=== PATIENT | female | born 1985 | race Asian ===

== ENCOUNTER 2021-03-09 19:09 | Emergency (ER) | payer OTHER, SELFPAY ==
[2021-03-09 19:24] VITALS: BP 137/66; PULSE 100; RESP 18; TEMP 36.4; O2SAT 100
--- NOTE | 2021-03-09 19:44 | ED.EXTPRO ---
HPI - Extremity Problem General Chief complaint: Extremity Problem,Nontraumatic Stated complaint: lt great toe pain Time Seen by Provider: 03/09/21 19:38 Source: patient and RN notes reviewed Mode of arrival: ambulatory Limitations: no limitations History of Present Illness HPI Narrative: Aminata is a 35-year-old female patient who ambulated into the [facility]. Patient's states she dug out an ingrown toenail on her left great toe a little over a week ago. Patient states today it became red, swollen, and painful. Patient has a history of multiple ingrown toenails. Related Data Home Medications Medication Instructions Recorded Confirmed letrozole 5 mg PO MONTHLY 03/09/21 03/09/21 Allergies Allergy/AdvReac Type Severity Reaction Status Date / Time Penicillins Allergy Intermediate Rash Verified 03/09/21 19:37 prednisone Allergy Mild Dyspnea / Verified 03/09/21 19:43 SOB Review of Systems Review of Systems: CONSTITUTIONAL: Denies body aches, fever, chills, or sweats. EYES: Denies visual changes, redness, or discharge. ENT: Denies rhinorrhea, congestion, sore throat, or otalgia. CARDIOVASCULAR: Denies chest pain, palpitations, or edema. RESPIRATORY: Denies cough or dyspnea. GASTROINTESTINAL: Denies abdominal pain, nausea, vomiting, or diarrhea. GENITOURINARY: Denies dysuria or hematuria. SKIN: Denies rash, itching, + redness, warm left great toe MUSCULOSKELETAL: Denies back pain, joint pain, or myalgia. NEUROLOGIC: Denies headache, numbness, tingling, or weakness. PSYCH: Denies depression or anxiety. All systems reviewed & are unremarkable except as noted in HPI and below PMFSH Comments At time of signature, I have reviewed and agree with nursing past medical, surgical, social and family history unless otherwise noted. Please see nursing chart for further information. There is no relevant family history pertinent to the presenting complaint Exam Narrative: GENERAL: Well-appearing, well-nourished, and in no acute distress. HEAD: Normocephalic, atraumatic. EYES: EOMI. No redness or drainage. Conjunctivae normal. ENT: Mucous membranes pink and moist. Nares clear. No rhinorrhea. NECK: Normal AROM. Supple. MUSCULOSKELETAL: No bony tenderness. EXTREMITIES: Normal range of motion. No edema. left great toe erythematous, edematous and warm to touch, erythema surrounding nail. small open area noted distal great toe. SKIN: Warm, dry, no rash. Capillary refill normal. Normal skin turgor. NEURO: No focal deficits. Alert and oriented x3. Gait steady. PSYCH: Normal affect. No signs of depression or anxiety. Course Vital Signs Vital signs: Vital Signs Temperature 36.4 C 03/09/21 19:24 Pulse Rate 100 03/09/21 19:24 Respiratory Rate 18 03/09/21 19:24 Blood Pressure 137/66 03/09/21 19:24 Pulse Oximetry 100 03/09/21 19:24 Temperature 36.4 C 03/09/21 19:24 Pulse Rate 100 03/09/21 19:24 Respiratory Rate 18 03/09/21 19:24 Blood Pressure 137/66 03/09/21 19:24 Pulse Oximetry 100 03/09/21 19:24 Reviewed reviewed. Pt has been instructed to follow up with her PCP regarding her elevated blood pressure today. MDM - Extremity (Nontraumatic) MDM Narrative Medical decision making narrative: Patient removed an ingrown toenail from her left great toe 1 week ago patient now has associated cellulitis to the left great toe Differential Diagnosis Differential diagnosis: Likely gout, cellulitis (Ingrown toe, cellulitis,) and lower extremity edema Critical Care Time Critical Care Time Critical Care Time: No Discharge Plan Discharge Clinical Impression: Ingrown nail of great toe of left foot Cellulitis Qualifiers: Site of cellulitis: extremity Site of cellulitis of extremity: toe Laterality: left Qualified Code(s): L03.032 - Cellulitis of left toe Patient Disposition: Home, Self-Care Condition: Stable Instructions: Antibiotic Form, Cellulitis (ED), Ingrown Nail (ED)
== END 2021-03-09 19:54 | disposition home or self-care (01) ==
PROVIDERS: Emergency Provider Nurse Practitioner Family; PCP Family Medicine
DX: L60.0 Ingrowing nail (principal); L03.032 Cellulitis of left toe; E28.2 Polycystic ovarian syndrome
CPT/HCPCS: 99213; G0463

== ENCOUNTER 2023-07-22 12:54 | Emergency (ER) | payer OTHER, SELFPAY ==
[2023-07-22 13:05] VITALS: BP 140/90; PULSE 69; RESP 20; TEMP 36.4; O2SAT 100
--- NOTE | 2023-07-22 13:07 | ED.FEMALEGU ---
HPI - Female Genitourinary General Chief complaint: Urogenital-Female Stated complaint: Cough and Urinary Problems Time Seen by Provider: 07/22/23 12:56 Source: patient Mode of arrival: ambulatory Limitations: no limitations History of Present Illness HPI Narrative: Patient is a 38-year-old female that presents with 4 days of urinary incontinence with coughing. Patient states she has frequent coughing fits but they have worsened. Cough started 2 weeks ago. Denies any congestion, sore throat, drainage, fever, chills, nausea, vomiting, diarrhea. Patient has been using Delsym and Mucinex for cough. MD elicited complaint: dysuria Related Data Allergies Allergy/AdvReac Type Severity Reaction Status Date / Time Penicillins Allergy Intermediate Rash Verified 07/22/23 13:41 sulfamethoxazole Allergy Intermediate Swelling Verified 07/22/23 13:41 [From Bactrim] of the Eye trimethoprim [From Bactrim] Allergy Intermediate Swelling Verified 07/22/23 13:41 of the Eye prednisone Allergy Mild Dyspnea / Verified 07/22/23 13:41 SOB Review of Systems Review of Systems: All systems reviewed & are unremarkable except as noted in HPI and below Constitutional: Constitutional: Denies chills, Denies fever(s), Denies headache(s), Denies malaise and Denies weakness Eyes: Eyes: Denies change in vision, Denies eye discharge and Denies irritation ENT: Denies otalgia, Denies headache(s), Denies nasal congestion, Denies nasal discharge, Denies sinus pain and Denies sore throat Cardiovascular: Cardiovascular: Denies chest pain, Denies edema, Denies palpitations and Denies dyspnea Respiratory: Respiratory: Reports cough and Denies dyspnea Gastrointestinal: Gastrointestinal: Denies abdominal pain, Denies diarrhea, Denies nausea and Denies vomiting Genitourinary: Genitourinary: Denies hematuria, Reports nocturia, Denies dysuria, Denies flank pain and Reports urinary urgency Musculoskeletal: Musculoskeletal: Denies back pain and Denies numbness Integumentary/Breasts: Skin/Breast: Denies pruritus and Denies rash Neurologic: Denies headache(s), Denies numbness and Denies weakness Psychiatric: Psychiatric: Reports no additional psychiatric complaints Endocrine: Endocrine: Denies palpitations PMFSH Comments At time of signature, agree with nursing past medical, surgical, social and family history. There is no relevant family history pertinent to the presenting complaint. Exam Const: General: cooperative, healthy appearing, comfortable, no acute distress and well nourished Nutritional Appearance: well nourished Orientation/consciousness: patient oriented x3 HENMT: Head: normocephalic and atraumatic Ears: external ears normal Face/Nose/Sinus: Normal external nose present, Normal nares present and normal facial exam Face and sinus: normal facial exam Eyes: General: appearance normal, both eyes and all related structures Pupils: Equal, round and reactive pupils present EOM: EOMs intact bilaterally Neck: Neck: normal visual inspection, full ROM and supple Chest: Chest palpation & inspection: normal inspection of the chest Resp: Effort & Inspection: normal respiratory effort, able to speak in complete sentences and Actively coughing dry Auscultation: clear to auscultation bilaterally, no crackles, no rales, no rhonchi and no wheezes Cardio: Rate: regular rate Rhythm: regular rhythm GI: Inspection: normal to inspection GI Palp: No abdominal tenderness and Yes Soft to palpation : General: Yes no CVA tenderness Back/Spine/Pelvis: Back: no CVA tenderness Skin: General skin exam: normal color and no rashes or lesions noted Neuro: General: patient oriented x3 and moves all extremities Cranial nerves: Yes Equal, round and reactive pupils present Extrem: General: normal to inspection and full ROM Psych: Appearance: grossly normal and well kempt Course Course Emergency Course: Patient is aware of diagnosis, understands and
== END 2023-07-22 13:54 | disposition home or self-care (01) ==
PROVIDERS: Emergency Provider Nurse Practitioner Family
DX: N30.00 Acute cystitis without hematuria (principal); J20.9 Acute bronchitis, unspecified
CPT/HCPCS: 81003; 87086; 99213; G0463

== ENCOUNTER 2024-01-16 11:30 | Emergency (ER) | payer OTHER, SELFPAY ==
--- NOTE | ~2024-01-16 | CT_ITS ---
EXAMINATION: CT abdomen pelvis w con DATE: 01/16/2024 13:15 INDICATION: Upper abdominal pain. TECHNIQUE: Computed tomography (CT) of the abdomen and pelvis was performed with 100 mL Omnipaque 350 intravenous contrast. Automated exposure control and iterative reconstruction technique were employe d. The dose-length product was 1383.81 mGy-cm. COMPARISON: None. FINDINGS: The visualized portions of the lung bases are clear without pneumonia or pleural effusion. The heart size is normal. No pericardial effusion. The liver, gallbladder, spleen, pancreas, adrenal glands, and kidneys are normal. There is a 3.8 cm mass of fat in left ovary, consistent with a dermoi d. There are no dilated loops of bowel. The appendix is normal. There are no pathologically enlarged lymph nodes. There is no free intraperitoneal fluid. There is mild thoracic and lumbar spondylosis. IMPRESSION: 1. 3.8 cm dermoid in left ovary. Reviewed, dictated and finalized at location A.
[2024-01-16 11:31] VITALS: BP 144/104; PULSE 91; RESP 16; TEMP 36.4; O2SAT 100
[2024-01-16 11:49] LABS: Basophils Percent Auto 0.4 % (0.2-1.2); Eosinophils Absolute Auto 0.2 K/mm3 (0-0.3); Eosinophils Percent Auto 2.2 % (0-4.4); Hemoglobin 13.6 g/dL (12.0-15.0); Immature Granulocyte Absolute 0.04 K/mm3 (0.00-0.031); Immature Granulocyte Percent A 0.5 % (0-0.5); Lymphocytes Absolute Auto 1.55 K/mm3 (0.9-3.2); Lymphocytes Percent Auto 18.7 % (18.3-44.2); Mean Corpuscular HGB Conc 31.6 g/dl (32-36); Mean Corpuscular Hemoglobin 24.9 pg (26-34); Mean Corpuscular Volume 78.8 fl (80-100); Mean Platelet Volume 11.7 fl (7.4-10.4); Monocytes Absolute Auto 0.8 K/mm3 (0.1-0.6); Monocytes Percent Auto 9.3 % (2.6-8.5); Neutrophils Absolute Auto 5.7 K/mm3 (1.3-6.7); Neutrophils Percent Auto 68.9 % (45.5-73.1); Platelet Count Result 260 k/mm3 (150-375); Red Blood Count 5.46 M/mm3 (4.2-5.4); Red Cell Distribution Width 13.6 % (11.5-14.5); White Blood Count 8.3 K/mm3 (4.5-10.0)
[2024-01-16 12:05] LABS: Alanine Aminotransferase 93 U/L (6-35); Albumin Level 4.5 g/dL (3.5-5.1); Alkaline Phosphatase 89 U/L (38-126); Anion Gap 11 mmol/L (4-12); Aspartate Amino Transferase 63 U/L (14-36); Bilirubin,Total 0.6 mg/dL (0.2-1.3); Blood Urea Nitrogen 7 mg/dL (7-17); Calcium 9.2 mg/dL (8.4-10.2); Carbon Dioxide 22 mmol/L (22-30); Chloride 100 mmol/L (98-107); Estimated CRCL calculation 161 ml/min; Estimated Glomerular Filt Rate > 60; Glucose 114 mg/dL (65-110); Lipase 35 U/L (23-300); Potassium 3.9 mmol/L (3.4-5.0); Sodium 133 mmol/L (137-145)
[2024-01-16 12:13] VITALS: BP 124/67; PULSE 82; RESP 14; TEMP 36.6; O2SAT 99
[2024-01-16 12:15] LABS: BEDSIDEPREGUCG Negative (Negative)
[2024-01-16 12:45] LABS: Add Urine Microscopic? YES; Appearance Urine Cloudy (Clear); Bacteria Urine None Seen /hpf; Bilirubin Urine Negative (Negative); Blood Urine Negative (Negative); Color Urine Yellow (Yellow); Glucose Urine UA Negative (Negative); Ketones Urine Negative (Negative); Leukocyte Esterase Ur 2+ LEU/UL (Negative); Need Manual Microscopic Reviewed; Nitrate Urine Negative (Negative); Non Pathogenic Casts 0-2; Protein Urine Negative (Negative); RBC Urine 0-2 /hpf (0-2); Specific Grav Ur 1.006 (1.001-1.035); Squamous Epithelial Cell Urine Few /hpf (Few); Urobilinogen Urine 0.2 mg/dL (<2.0)
[2024-01-16] MEDS: ONDANSETRON INJ 4 MG/2 ML VIAL IV PUSH (13:21)
[2024-01-16] MEDS: MORPHINE SULFATE (*CRX) 4 MG/ML INJ IV PUSH (13:21)
[2024-01-16] MEDS: SODIUM CHLORIDE 0.9% IV 1,000 ML 999 ML IV CONT (13:22)
[2024-01-16 13:25] VITALS: BP 121/72; PULSE 89; RESP 15; O2SAT 99
--- NOTE | 2024-01-16 13:38 | ED.GENADULT ---
HPI - General Adult General Chief complaint: Nausea/Vomiting/Diarrhea Stated complaint: DIARRHEA Time Seen by Provider: 01/16/24 12:15 History of Present Illness HPI narrative: Patient is a 38-year-old female who presents to the emergency department this afternoon complaining of left upper quadrant and right upper quadrant abdominal pain and diarrhea for the past 4 days. Patient admits nausea and 1 vomiting episode. Denies any chest pain or shortness of breath and denies any sick contacts at home. Denies any similar symptoms in the past. Patient states that the pain woke her up from sleep. Pain does not radiate. Denies any lower abdominal pain and denies any urinary symptoms including dysuria or hematuria. No additional symptoms or concerns at this time. Related Data Allergies Allergy/AdvReac Type Severity Reaction Status Date / Time Penicillins Allergy Intermediate Rash Verified 07/22/23 13:41 sulfamethoxazole Allergy Intermediate Swelling Verified 07/22/23 13:41 [From Bactrim] of the Eye trimethoprim [From Bactrim] Allergy Intermediate Swelling Verified 07/22/23 13:41 of the Eye prednisone Allergy Mild Dyspnea / Verified 07/22/23 13:41 SOB Review of Systems Review of Systems: All systems are reviewed and are negative unless stated otherwise in the HPI. Exam Narrative: General: Alert, awake, afebrile, in no acute distress. HEENT: PERRL, no rhinorrhea, no post nasal drip, oropharynx clear. Cardiovascular: Regular rate and rhythm, no murmurs, rubs or gallops, no peripheral edema. Respiratory: Clear to auscultation bilaterally, no tachypnea, no wheezing, no rhonchi, no rubs, no respiratory distress. Abdomen: Soft, tenderness to palpation over the bilateral upper abdomen, nondistended, no rebound, no guarding, no peritoneal signs. Musculoskeletal: No joint swelling or deformity, normal muscle tone. Skin: No rashes or petechia, no signs of infection. Neurological: Alert and oriented to person, place, and time. Follows all commands. No focal deficits, speech is clear and fluent. Course Vital Signs Vital signs: Vital Signs Temperature 97.6 F 01/16/24 11:31 Pulse Rate 91 01/16/24 11:31 Respiratory Rate 16 01/16/24 11:31 Blood Pressure 144/104 H 01/16/24 11:31 Pulse Oximetry 100 01/16/24 11:31 Temperature 97.8 F 01/16/24 12:13 Pulse Rate 89 01/16/24 13:25 Respiratory Rate 15 01/16/24 13:25 Blood Pressure 121/72 01/16/24 13:25 Pulse Oximetry 99 01/16/24 13:25 Medical Decision Making MDM Narrative Medical decision making narrative: The patient was evaluated by myself in the emergency department. History is obtained from patient who is an independent historian and physical exam was performed. External medical records were reviewed at this time. IV was established and pertinent tests were ordered. Patient was administered along L IV fluid bolus with normal saline, 4 mg IV Zofran for nausea and 4 mg IV morphine for pain. Laboratory results obtained revealing an AST of 63 and an ALT of 93 otherwise unremarkable. Urinalysis revealed 2+ leuk esterases with 11-20 white blood cells. Imaging studies obtained included CT abdomen pelvis with IV contrast which was independently interpreted by me revealing no acute process, which is pending final radiology interpretation. Differential diagnosis considerations include gastroenteritis, peptic ulcer disease, cholecystitis, dehydration, electrolyte derangements and pancreatitis. Comorbidities impacting this visit include none. I have evaluated and discussed social determinants of health with the patient that could potentially impact subsequent diagnosis and treatment plans. On repeat assessment of the patient, reevaluation revealed that the patient is doing well and is in no acute distress. Patient symptoms have improved since she arrived to our emergency department. Repeat vital signs were all reviewed and noted to be
[2024-01-16 14:02] VITALS: BP 124/80; PULSE 78; RESP 16; TEMP 36.7; O2SAT 99
[2024-01-16] MEDS: PANTOPRAZOLE SODIUM IV 40 MG VIAL IV PUSH (14:02)
--- NOTE | 2024-01-31 11:17 | PC.NURSE ---
Fluid stop time 1423 on 01/16/24 by this RN. Patient IV intake 1000 mL
== END 2024-01-16 14:04 | disposition home or self-care (01) ==
PROVIDERS: Emergency Medicine; Emergency Provider Emergency Medicine
DX: K52.9 Noninfective gastroenteritis and colitis, unspecified (principal); N39.0 Urinary tract infection, site not specified
CPT/HCPCS: 36415; 74177; 80053; 81001; 81025; 83690; 85025; 87086; 87088; 96361; 96374; 96375; 99284; J2270; J2405; J2470; J7030; Q9967

== ENCOUNTER 2024-09-10 20:16 | Emergency (ER) | payer OTHER, SELFPAY ==
--- NOTE | ~2024-09-10 | XR_ITS ---
CHEST RADIOGRAPH, PA AND LATERAL CLINICAL HISTORY: CHEST PAIN, DIZZINESS . COMPARISON: 02/11/2018 TECHNIQUE: PA and lateral views of the chest. FINDINGS The cardiomediastinal silhouette is unremarkable. The lungs are clear. Visualized osseous structures and soft tissues are unremarkable. IMPRESSION: No focal infiltrate or effusion. Reviewed, dictated and finalized at location A.
--- NOTE | 2024-09-10 20:17 | ECG_ITS ---
Test Date: 2024-09-10 20:20:11 Measurements Intervals [place] Rate: 74 P: 11 DE: 155 QRS: 8 QRSD: 127 T: 15 QT: 377 QTc: 419 Interpretive Statements SINUS RHYTHM RSR' IN V1 OR V2, PROBABLY NORMAL VARIANT No previous ECG available for comparison Electronically Signed On 09-11-2024 10:43:49 CDT by Catarino Palacio M.D.
--- OUTSIDE RECORDS SUMMARY | 2024-09-10 20:18 | XMS_ITS | Clinical Summary ---
Author Organization [facility] Address [address] [place] [address] Care Team Providers Care Train Gateman Name Role Phone Gaye Us MICHELLE-MECHANIC FOREMAN Primary Care Provider [phone] Source Comments [facility],non-owned Affiliates and Associated Physician Practices is amultiple site organization consisting of ambulatory clinics and hospital sitesin [place], [place], [place] and [place]. This disclosure is being madepursuant to the Care Everywhere program and may not contain all information available regarding this patient. Last updated 18.[facility] [employer] Allergies Active Allergy Reactions Criticality Noted Date Comments Penicillins Swelling,Urticaria Medium 10/04/2023 Prednisone Rash,Urticaria Medium 10/04/2023 Sulfamethoxazole W-Trimethoprim Swelling,Urticaria Medium 10/04/2023 Medications * Be aware that medications may not be up to date on this document. Alwaysverify current medications with the patient. Cholecalciferol 125 MCG (5000 UT) Ac tive Active Problems No known active problems Social History Tobacco Use Types Packs/Day Years Used Date Smoking Tobacco: Never Assessed Comments Unknown Sex and Gender Information Value Date Recorded Sex Assigned at Not on file Legal Sex Female 2:19 PM CDT Gender Identity Not on file Sexual Orientation Not on file Plan of Treatment Health Maintenance Due Date Last Done Comments PAP SMEAR 1987 HIV SCREENING 2002 DTAP/TDAP/TD VACCINES (1 - Tdap) 2006 HEPATITIS B VACCINE (1 of 3 - 19+ 3-dose series) 2006 COVID-19 VACCINE (2023-2 5 season) 2023 DEPRESSION SCREENING 04/26/2024 INFLUENZA VACCINE (Season Ended) 2024 ZOSTER VACCINE (1 of 2) 2037 HEPATITIS C SCREENING Completed 10/29/2023 , 10/29/2023 HIB VACCINE Aged Out No longer eligi ble based on patient's age to complete this topic HPV VACCINE Aged Out No longer eligi ble based on patient's age to complete this topic MENINGOCOCCAL (Group B) VACCINE SHARED DECISION-MAKING Aged Out No longer eligible based on patient's age to complete this topic MENINGOCOCCAL GROUPS A/C/Y/W VACCINE Aged Out No longer eligible b ased on patient's age to complete this topic PNEUMOCOCCAL VACCINE Aged Out No long er eligible based on patient's age to complete this topic Care Teams Train Gateman Relationship Specialty Start Date End Date Gaye Us APRN-LULÚ [address] [place] [phone] PCP - General Nurse Practitioner 12/14/23
--- OUTSIDE RECORDS SUMMARY | 2024-09-10 20:18 | XMS_ITS | Referral Summary ---
Author Organization [facility] C Address [address] [place] [address] Care Team Providers Care Residential Program Coordinator Name Role Phone Gaye Us NP Primary Care Provider [phone] Encounters Date Type Department Care Team Description 08/31/2024 2:30 PM CDT Office Visit [facility] Primary Care at [address] [phone] Gaye Us NP Paresthesia and pain of both upper extremities (Primary Dx); Chronic pain of both shoulders; Chronic fatigue; HOLDEN on CPAP; Morbid obesity with BMI of 45.0-49.9, adult (HCC); Prediabetes; Vitamin D deficiency; Low mean corpuscular volume (MCV); Screening, lipid 07/24/2024 Telephone [facility] Primary Care at [address] [phone] Gaye Us NP 07/12/2024 Telephone [facility] Primary Care at [address] [phone] Gaye Us NP 07/12/2024 8:45 AM CDT Office Visit [facility] Primary Care at [address] [phone] Gaye Us NP Acute bronchitis, unspecified organism (Primary Dx); Acute non-recurrent sinusitis, unspecified location; Morbid obesity with BMI of 45.0-49.9, adult (HCC); Prediabetes; Vitamin D deficiency; Low mean corpuscular volume (MCV); Screening for thyroid disorder; Screening, anemia, deficiency, iron; Screening, lipid 07/11/2024 Nurse Triage [facility] Primary Care at [place] [id number] [facility] [address] [place] [address] Gaye Us NP from Last 3 Months Allergies Active Allergy Reactions Criticality Noted Date Comments Sulfamethoxazole-Trimethoprim Hives,Edema Medium 10/03 Penicillins Hives,Edema Medium 10/04/2023 Prednisone Hives,Edema Medium 10/04/2023 Medications cholecalciferol (VITAMIN D-3) 5,000 unit tabletIndications :Well woman exam with routine gynecological exam Take 1 tablet (5,000 Units total) by mouth daily Active pantoprazole DR (PROTONIX) 40 mg EC tabletIndications :Postprandial epigastric pain Take 1 tablet (40 mg total) by mouth daily 30 tablet Active Additional Information Patient not taking.Reported on 08/31/2024 gabapentin (NEURONTIN) 300 mg capsuleIndication s:Paresthesia and pain of both upper extremities Take one capsule daily for 3 days, then increase to one capsule BID for 3 days, then increase to one capsule TID for 3 days 90 capsule Active Active Problems Problem Noted Date Diagnosed Date Paresthesia and pain of both upper extremities 0 09/03/2024 Assessment & Plan (09/03/2024 11:14 AM CDT): Uncontrolled Started on gabapentin Ordered EMG and nerve conduction studies of bilateral upper extremities HOLDEN on CPAP 08/31/2024 Assessment & Plan (09/03/2024 11:10 AM CDT): Uncontrolled, snores and has worsening fatigue Referral made to sleep medicine Fatigue 08/31/2024 Assessment & Plan (08/31/2024 3:06 PM CDT): Worsening, likely multifactorial, has HOLDEN, is snoring with CPAP, also under a lot of stress Referral made to sleep medicine Labs ordered Low mean corpuscular volume (MCV) 07/12/2024 Assessment & Plan (09/03/2024 11:09 AM CDT): Normal hemoglobin and hematocrit, normal iron Will monitor Assessment & Plan (07/12/2024 9:22 AM CDT): Normal hemoglobin and hematocrit, normal iron Will monitor Postprandial epigastric pain 02/18/2024 Assessment & Plan (02/18/2024 9:43 AM CDT): Acute, episodic, related to meals Started on pantoprazole 40 mg 1/2 hour before 1st meal of the day Encouraged to avoid foods that precipitate symptoms Ordered right upper quadrant ultrasound Prediabetes 11/04/2023 Assessment & Plan (09/03/2024 10:57 AM CDT): Uncontrolled, stability unknown Advised to decrease intake of concentrated sweets and to limit starchy vegetables and white potato to no more than 1/2 cup serving per day Encouraged weight loss Assessment & Plan (07/12/2024 9:19 AM CDT): Uncontrolled Advised to decrease intake of concentrated sweets and to limit starchy vegetables and white potato to no more than 1/2 cup serving per day Encouraged weight loss Assessment & Plan (11/04/2023 1:22 PM CDT): New diagnosis Advised to decrease intake of concentrated sweets and to limit starchy vegetables and white potato to no more than 1/2 cup serving per day Encouraged weight loss Vitamin D deficiency 11/04/2023 Assessment & Plan (09/03/2024 10:58 AM CDT): Uncontrolled, now on supplement Continue on vitamin D3 2000 international units daily with a meal Assessment & Plan (07/12/2024 9:19 AM CDT): Uncontrolled, now on supplement Continue on vitamin D3 2000 international units daily with a meal Assessment & Plan (11/04/2023 1:20 PM CDT): New diagnosis Started on vitamin D3 2000 international units daily with a meal Annual physical exam 11/04/2023 Assessment & Plan (11/04/2023 1:24 PM CDT): Reviewed past and current medical history, surgical history, social history, family history, current medications, and allergies. The chart was updated to identify any changes in these areas. A ROS and PE were performed. Medications and labs were ordered and referrals were made. Discussed well woman exam/cervical cancer screening, monthly breast self-exams, and recommended immunizations. Patient will follow-up in 6 months for further evaluation and management or sooner if needed. Chronic pain of both shoulders 11/04/2023 Assessment & Plan (09/03/2024 11:09 AM CDT): Worsening Advised can use OTC oral and topical medication Discussed x-rays and referral to orthopedic surgeon, through shared decision- making, will defer until after EMG/nerve conduction studies Assessment & Plan (11/04/2023 1:41 PM CDT): Chronic, stable, episodic Advised can continue PRN ibuprofen and apply ice when needed Irritable bowel syndrome with diarrhea Assessment & Plan (02/18/2024 9:44 AM CDT): Chronic, stable Monitor for offending foods and relationship to stress Will monitor for stability Assessment & Plan (11/04/2023 1:42 PM CDT): Chronic, stable Monitor for offending foods and relationship to stress Will monitor for stability Acne vulgaris 10/06/2023 Assessment & Plan (07/12/2024 9:19 AM CDT): Chronic, stable, not on medication Referred to dermatology last visit, has appointment at [facility] in November Will monitor for stability Assessment & Plan (11/04/2023 1:25 PM CDT): Chronic, stable, not on medication Referred to dermatology last visit, has appointment at [facility] in November Will monitor for stability Assessment & Plan (10/06/2023 9:46 AM CDT): Chronic, improved per patient report, not on medication Referral made to Dermatology Will monitor for stability Skin tag 10/06/2023 Assessment & Plan (11/04/2023 1:20 PM CDT): Referral made to dermatology at initial/last visit Assessment & Plan (10/06/2023 9:45 AM CDT): Referral made to dermatology for further evaluation and management Morbid obesity with BMI of 45.0-49.9, adult 09/24 Assessment & Plan (08/31/2024 2:46 PM CDT): Worsened Encouraged to: Make healthy food choices, limiting intake of concentrated sweets, cholesterol, and saturated fat Monitor daily caloric intake and portion sizes Exercise most days of the week for a goal of at least 150 minutes of exercise per week Assessment & Plan (07/12/2024 9:17 AM CDT): Worsened Encouraged to: Make healthy food choices, limiting intake of concentrated sweets, cholesterol, and saturated fat Monitor daily caloric intake and portion sizes Exercise most days of the week for a goal of at least 150 minutes of exercise per week Assessment & Plan (02/18/2024 9:43 AM CDT): Chronic, stable Encouraged to: Make healthy food choices, limiting intake of concentrated sweets, cholesterol, and saturated fat Monitor daily caloric intake and portion sizes Exercise most days of the week for a goal of at least 150 minutes of exercise per week Assessment & Plan (11/04/2023 1:23 PM CDT): Chronic, stability unknown Encouraged to: Make healthy food choices, limiting intake of concentrated sweets, cholesterol, and saturated fat Monitor daily caloric intake and portion sizes Exercise most days of the week for a goal of at least 150 minutes of exercise per week Assessment & Plan (10/06/2023 9:46 AM CDT): Chronic, stability unknown Encouraged to: Make healthy food choices, limiting intake of concentrated sweets, cholesterol, and saturated fat Monitor daily caloric intake and portion sizes Exercise most days of the week for a goal of at least 150 minutes of exercise per week Abnormal menses 10/06/2023 Assessment & Plan (11/04/2023 1:26 PM CDT): Chronic, stable Referred last visit to gynecology, has appointment at [facility] in November Assessment & Plan (10/06/2023 9:46 AM CDT): Chronic, stable Referral made to gynecology for further evaluation and management Resolved Problems Problem Noted Date Diagnosed Date Resolved Date Acute bronchitis 07/12/2024 08/31/2024 Assessment & Plan (07/12/2024 9:17 AM CDT): Started on a Zpak Supportive care measures discussed Strict return precautions given Acute non-recurrent sinusitis 07/12/2024 08/31/2024 Assessment & Plan (07/12/2024 9:17 AM CDT): Started on a Zpak Supportive care measures discussed Strict return precautions given Abnormal hemoglobin 07/12/2024 09/04/19 25 Encounter to establish care 10/06/2023 11/04/2023 Assessment & Plan (10/06/2023 9:47 AM CDT): Reviewed past and current medical history, surgical history, social history, family history, current medications, and allergies. The chart was updated to identify any changes in these areas. A ROS and PE were performed. Labs were ordered and referrals were made. Patient will follow-up in 4 weeks for further evaluation and management or sooner if needed. Immunizations Immunization Administration Dates Next Due Influenza, Unspecified 01/25/2024(Deferr ed: Patient Refused),01/24/2023(Deferred: Patient Refused),01/24/2023(Deferred: Patient Refused),01/24/2022(Deferred: Patient Refused) Social History Tobacco Use Types Packs/Day Years Used Date Smoking Tobacco: Former Cigarettes - 2006 Smokeless Tobacco: Never Tobacco Cessation:Counseling Given: Not Answered Comments:1/2 pack daily. AUDIT-C Answer Date Recorded Q1: How often do you have a drink containing alc ohol? Monthly or less 10/04/2023 Q2: How many drinks containi ng alcohol do you have on a typical day when you are drinking? 1 or 2 10/04/2023 Q3: How often do you have si x or more drinks on one occasion? Never 10/04/2023 PHQ-2 Answer Date Recorded PHQ-2 Total Score (If total score is 3 or more points, staff should administer the PHQ-9) 3 11/04/2023 PHQ-9 Answer Date Recorded PHQ-9 Total Score 13 11/04/2023 Comments No Sex and Gender Information Value Date Recorded Sex Assigned at Not on file Legal Sex Female 12:02 PM CDT Gender Identity Not on file Sexual Orientation Not on file Last Filed Vital Signs Vital Sign Reading Time Taken Comments Blood Pressure 142/82 08/31/2024 3:04 PM CDT Pulse 81 08/31/2024 2:32 PM CDT Temperature 36.4 C (97.6 F) 08/31/2024 2:32 PM CDT Respiratory Rate 14 08/31/2024 2:32 PM CDT Oxygen Saturation 98% 08/31/2024 2:32 PM CDT Inhaled Oxygen Concentration - - Weight 122.7 kg (270 lb 8 oz) 08/31/2024 2:32 PM CDT Height 157 cm (5' 1.81 ) 08/31/2024 2:32 PM CDT Body Mass Index 49.78 08/31/2024 2:32 PM CDT Plan of Treatment Not on file Procedures Procedure Name Priority Date/Time Associated Diagnosis Comments POC INFLUENZA A/B, COVID-19 ANTIGEN Routine 07/12/2024 9:00 AM CDT Acute bronchitis, unspecified organism HIGH RISK HPV DNA DETECTION WITH GENOTYPING Routine 12/06/2023 1:34 PM CDT Abnormal menses Well woman exam with routine gynecological exam Vaginal discharge HEPATITIS C ANTIBODY Routine 10/29/2023 11:28 AM CDT Encounter for hepatitis C screening test for low risk patient from Last 3 Months or Most Recently Relevant to Health Maintenance Results * POC Influenza A/B, COVID-19 antigen (07/12/2024 9:00 AM CDT) Pathologist [facility] Influenza A Ag, POC Negative Negative [facility] [address] Influenza B Ag, POC Negative Negative [facility] 210 COVID-19 Ag POC Presumptive Negative Presumptive Negative, Invalid [facility] [address] Comment:Lot [id number] Exp [id number] Nasal 07/12/2024 9:00 AM CDT us Gaye Us NP POINT OF CARE TEST ORDERABLES nal Result [facility] [address] * High Risk HPV DNA Detection with Genotyping (Molecular component) (12/06/2023 1:34 PM CDT) [facility] HPV HR [address] [facility] Comment:Testing performed by : [facility], [address] [place] [address] HPV HR 18 Not Detected Not Detected [facility] Comment:Testing performed by : [facility], [address] [place]., [address] HPV HR Non 16/18 Not Detected Not Detected [facility] Comment: Interpretive Data Nucleic acid amplification for detection of high-risk Human Papilloma virus (HPV) is performed by the K[employer] Jose 6800 HPV test. This assay specifically detects HPV-16 and HPV-18 genotypes. The following HPV genotypes are detected as high-risk HPV: HPV-31, 33, 35, ,39, 45, 51, 52, 56, 58, 59, 66, and 68. This assay has been approved by the [place] Food and Drug Administration for detection of HPV in cervical specimens collected by a physician using an endocervical brush/spatula or cervical broom and placed in the ThinPrep Pap Test PreservCyt collection containers. The performance characteristics of this test have been verified by the [facility] Molecular Infectious Disease laboratory. Correlate with separately reported cytology results, as applicable. Interpretive data last revised 22 Testing performed by: [facility], [address] [place]., [address] Endocervical 12/06/2023 1:34 PM CDT 12/07/2023 11:16 AM CDT Narrative [facility] - 12/08/2023 1:17 AM CDT Clinical history and diagnosis->2019 wnl per pt ([place]) Number of vials->1 Testing type->Screening Last menstrual period (date if known)->11/22/23 Rianna Angulo SHOE REPAIRMAN LAB BODY FLUIDS AND STOOLS O RDERABLES Final Result [place] [address] [place] [address] [facility] * Hepatitis C antibody Blood (10/29/2023 11:28 AM CDT) Hep C Ab Nonreactive Nonreactive Comment: Antibodies to HCV not detected. Does NOT exclude the possibility of recent exposure to HCV. Current interpretive data was last revised on 21 Interpretive Data Nonreactive: Antibodies to HCV not detected. Does NOT exclude the possibility of recent exposure to HCV. Equivocal: Equivocal for HCV antibodies. Supplemental molecular testing will be automatically performed to determine infection status in accordance with current CDC screening recommendations. Reactive: Positive for HCV antibodies. This may represent current or past HCV infection. Supplemental molecular testing will be automatically performed to determine current infection status in accordance with current CDC screening recommendations. Interpretive data was last revised on 2019. Blood 10/29/2023 11:2 8 AM CDT 10/29/2023 4:33 PM CDT Gaye Us NP LAB MICROBIOLOGY - GENERAL ORDER ROSA ISELA Edited Result - Final Performing Organization Address City/[facility]/ZIP Co de Phone Number [address] [place] [place] [address] from Last 3 Months or Most Recently Relevant to Health Maintenance Insurance [facility] Care Teams Residential Program Coordinator Relationship Specialty Start Date End Date Gaye Us NP [address] [place] [address] [phone] PCP - General Family Medicine 10/04/23
--- OUTSIDE RECORDS SUMMARY | 2024-09-10 20:18 | XMS_ITS | Clinical Summary ---
Author Organization [facility] C Address [address] [place] [address] Care Team Providers Care Duplicating Machine Operator Name Role Phone Gaye Us NP Primary Care Provider [phone] Allergies Active Allergy Reactions Criticality Noted Date [...] mg total) by mouth daily 30 tablet 4 Active Additional Information Patient not taking.Reported on [...] to dermatology last visit, has appointment at [facility] in November Will monitor for stability Assessment & Plan (11/04/2023 1:25 PM CDT): Chronic, stable, not on medication Referred to dermatology last visit, has appointment at [facility] in November Will monitor for stability Assessment [...] last visit to gynecology, has appointment at [facility] Obstetrics and Gynecology in November Assessment & [...] evaluation and management or sooner if needed. Encounters Date Type Department Care Team Description 08/31/2024 2:30 PM CDT Office Visit [facility] Primary Care at [address] [phone] Gaye Us NP Paresthesia and pain of both upper extremities (Primary Dx); Chronic pain of both shoulders; Chronic fatigue; HOLDEN on CPAP; Morbid obesity with BMI of 45.0-49.9, adult (HCC); Prediabetes; Vitamin D deficiency; Low mean corpuscular volume (MCV); Screening, lipid 07/24/2024 Telephone [facility] Primary Care at [address] [phone] Gaye Us NP 07/12/2024 8:45 AM CDT Office Visit [facility] Primary Care at [address] [phone] Gaye Us NP Acute bronchitis, unspecified organism (Primary Dx); Acute non-recurrent sinusitis, unspecified location; Morbid obesity with BMI of 45.0-49.9, adult (HCC); Prediabetes; Vitamin D deficiency; Low mean corpuscular volume (MCV); Screening for thyroid disorder; Screening, anemia, deficiency, iron; Screening, lipid 07/12/2024 Telephone [facility] Primary Care at [address] [phone] Gaye Us NP 07/11/2024 Nurse Triage [facility] Primary Care at [address] [phone] Gaye Us NP from Last 3 Months Immunizations Immunization Administration Dates Next Due Influenza, Unspecified 01/25/2024(Deferr ed: Patient Refused),01/24/2023(Deferred: Patient Refused),01/24/2023(Deferred: Patient Refused),01/24/2022(Deferred: Patient Refused) Surgical History Surgery Date Site/Laterality Comments WISDOM TOOTH EXTRACTION Family History Medical History Relation Name Comments Breast cancer Neg Hx Social History Tobacco Use Types Packs/Day Years Used Date Smoking Tobacco: Former Cigarettes 2 - 2006 Smokeless Tobacco: Never Tobacco Cessation:Counseling [...] on file Sexual Orientation Not on file Obstetrics History Para Term AB IAB SAB Ectopic Multiple Livin g Live Births 0 0 0 0 0 0 0 0 0 0 0 Last Filed Vital Signs Vital Sign Reading [...] 08/31/2024 2:32 PM CDT Plan of Treatment Health Maintenance Due Date Last Done Comments Meningococcal B Vaccine (1 of 5 - Increased Risk) 1997 DTaP/Tdap/Td Vaccine (1 - Tdap) 1998 Pneumococcal vaccine <65 (1 of 2 - PCV) 2006 Covid-19 Vaccine (3 - season) 2023 08/27/2020, 07/30/2020 Depression Screening 11/03/2024 11/04/2023, 11/04/2023, 10/04/2023, Additional history exists Cervical Cancer Screening 12/05/2024 12/06/2023, 03/2024 Regular Well Visit/Exam 18-64 12/05/2024 12/06/2023, 11/04/2023 Influenza Vaccine (Season Ended) 2024 Hepatitis B Screening Completed 10/29/2023 Hepatitis C Screening Completed 10/29/2023 HPV Vaccines Aged Out No longer eligi ble based on patient's age to complete this topic Varicella Vaccines Discontinued Procedures Procedure Name Priority Date/Time Associated Diagnosis [...] A/B, COVID-19 antigen (07/12/2024 9:00 AM CDT) Influenza A Ag, POC Negative Negative [facility] 210 Influenza B Ag, POC Negative Negative [facility] 210 COVID-19 Ag POC Presumptive Negative Presumptive Negative, Invalid [facility] 210 Comment:Lot [id number] Exp [id number] 26 Nasal 07/12/2024 9:00 AM CDT us Gaye Us NP POINT OF CARE TEST ORDERABLES Fi nal Result [facility] [address] * High Risk HPV DNA Detection with Genotyping (Molecular component) (12/06/2023 1:34 PM CDT) HPV HR [address] [facility] Comment:Testing performed by : [facility], [address] [place]., [address] HPV HR 18 Not Detected Not Detected [facility] Comment:Testing performed by : [facility], [address] [place]., [address] HPV HR Non 16/18 Not Detected Not Detected [facility] Comment: Interpretive Data Nucleic acid amplification for [...] this test have been verified by the [facility] Molecular Infectious Disease laboratory. Correlate with separately reported cytology results, as applicable. Interpretive data last revised 22 Testing performed by: [facility], [address] [place]., [address] Endocervical 12/06/2023 1:34 PM CDT 12/07/2023 11:16 AM CDT Narrative [facility] - 12/08/2023 1:17 AM CDT Clinical history and diagnosis->2019 wnl per pt ([place]) Number of vials->1 Testing type->Screening Last menstrual period (date if known)->11/22/23 Rianna Angulo NP LAB BODY FLUIDS AND STOOLS O RDERABLES Final Result [facility] [address] [facility] Department [place] [address] [facility] * Hepatitis C antibody Blood (10/29/2023 11:28 [...] 8 AM CDT 10/29/2023 4:33 PM CDT us Gaye Us NP LAB MICROBIOLOGY - GENERAL ORDER ROSA ISELA Edited Result - Final [facility] [address] [facility] Department [place] [address] from Last 3 Months or Most Recently Relevant to Health Maintenance [facility] Care Teams Duplicating Machine Operator Relationship Specialty Start Date End Date Gaye Us OPTICAL FABRICATOR [address] [place] [id number] PCP - General Family Medicine 10/04/23
[2024-09-10 20:19] VITALS: BP 148/83; PULSE 81; RESP 16; TEMP 36.8; O2SAT 100
[2024-09-10 20:35] LABS: Basophils Absolute Auto 0.1 K/mm3 (0.0-0.1); Basophils Percent Auto 0.7 % (0.2-1.2); Eosinophils Absolute Auto 0.2 K/mm3 (0-0.3); Eosinophils Percent Auto 1.7 % (0-4.4); Hematocrit 41.8 % (37.0-47.0); Hemoglobin 13.3 g/dL (12.0-15.0); Immature Granulocyte Absolute 0.05 K/mm3 (0.00-0.031); Immature Granulocyte Percent A 0.5 % (0-0.5); Lymphocytes Absolute Auto 3.31 K/mm3 (0.9-3.2); Lymphocytes Percent Auto 33.6 % (18.3-44.2); Mean Corpuscular HGB Conc 31.8 g/dl (32-36); Mean Corpuscular Volume 78.7 fl (80-100); Mean Platelet Volume 11.1 fl (7.4-10.4); Monocytes Absolute Auto 0.6 K/mm3 (0.1-0.6); Monocytes Percent Auto 6.2 % (2.6-8.5); Neutrophils Absolute Auto 5.6 K/mm3 (1.3-6.7); Neutrophils Percent Auto 57.3 % (45.5-73.1); Platelet Count Result 238 k/mm3 (150-375); Red Blood Count 5.31 M/mm3 (4.2-5.4); Red Cell Distribution Width 13.5 % (11.5-14.5); White Blood Count 9.8 K/mm3 (4.5-10.0)
[2024-09-10 20:45] LABS: Alanine Aminotransferase 79 U/L (6-35); Albumin Level 4.3 g/dL (3.5-5.1); Alkaline Phosphatase 86 U/L (38-126); Anion Gap 8 mmol/L (4-12); Aspartate Amino Transferase 64 U/L (14-36); Bilirubin,Total 0.5 mg/dL (0.2-1.3); Blood Urea Nitrogen 8 mg/dL (7-17); Calcium 9.8 mg/dL (8.4-10.2); Carbon Dioxide 23 mmol/L (22-30); Chloride 107 mmol/L (98-107); Estimated CRCL calculation 145 ml/min; Estimated Glomerular Filt Rate > 60; Glucose 98 mg/dL (65-110); Lipase 60 U/L (23-300); Potassium 3.9 mmol/L (3.4-5.0); Sodium 138 mmol/L (137-145)
[2024-09-10 20:47] LABS: INR 0.9; Partial Thromboplastin Time 30.2 Seconds (22.3-36.8); Prothrombin Time 12.7 Seconds (11.1-14.7)
[2024-09-10 20:57] LABS: Troponin I < 0.012 ng/mL (0.000-0.034)
--- NOTE | 2024-09-10 23:36 | ED.CHESTPAIN ---
HPI - Chest Pain General Chief Complaint: Chest Pain Stated Complaint: Chest pain, SLATER, dizziness, High BP Time Seen by Provider: 09/10/24 23:18 History of Present Illness HPI narrative: 39-year-old female with a history of migraines presents to the emergency department for headache, dizziness, chest pain. Patient states earlier today she was having a frontal headache, took 800 mg of ibuprofen and went to lay down and began having pain in the center of her chest. She states since then she has been having pain to the center of her chest she describes as sharp. No aggravating or alleviating factors. She does note that she has had increase in acid reflux, especially since having chili for dinner last night. States she took her blood pressure at home and found to be elevated 170s-180s over 100. She called her friend who is an RN and was told to come to the ED. denies cough, congestion, shortness of breath, abdominal pain, N/V/D, lower extremity edema, hemoptysis, history of VTE, use of estrogen. Denies prior history of hypertension but does states she had an appointment with her PCP about a week ago her blood pressure was also elevated at that time. She normally does not take her blood pressure at home. She states her headache improved but is now coming back. Denies head injury or trauma, nuchal rigidity or fever. Denies smoking. Patient is adopted, family medical history unknown. Related Data Allergies Allergy/AdvReac Type Severity Reaction Status Date / Time Penicillins Allergy Intermediate Rash Verified 09/10/24 20:19 sulfamethoxazole (From Allergy Intermediate Swelling Verified 09/10/24 20:19 Bactrim) of the Eye trimethoprim (From Bactrim) Allergy Intermediate Swelling Verified 09/10/24 20:19 of the Eye prednisone Allergy Mild Dyspnea / Verified 09/10/24 20:19 SOB Review of Systems Review of Systems: All systems reviewed & are unremarkable except as noted in HPI and below Exam Narrative: GENERAL: Well-appearing, well-nourished, and in no acute distress. HEAD: Normocephalic, atraumatic. EYES: PERRLA and EOMI. ENT: Nares clear, no rhinorrhea or epistaxis. Mucous membranes moist. NECK: Supple. CHEST: Clear to auscultation. No respiratory distress. HEART: Regular rate and rhythm. No murmur heard. Normal peripheral pulses. ABDOMEN: Soft, nontender, nondistended, normal active bowel sounds. EXTREMITIES: Normal range of motion. No edema. SKIN: Warm, dry, no rash. NEURO: No focal deficits. Alert and oriented x4. Cranial nerves 2-12 intact. Strength 5/5 in BUE and BLE. Sensation intact throughout. Normal [id number], no ataxia Course Vital Signs Vital signs: Vital Signs Temperature 98.2 F 09/10/24 20:19 Pulse Rate 81 09/10/24 20:19 Respiratory Rate 16 09/10/24 20:19 Blood Pressure 148/83 H 09/10/24 20:19 Pulse Oximetry 100 09/10/24 20:19 Oxygen Delivery Room Air 09/10/24 20:19 Temperature 98.2 F 09/10/24 20:19 Pulse Rate 89 09/11/24 03:04 Respiratory Rate 16 09/11/24 03:04 Blood Pressure 141/85 H 09/11/24 03:04 Pulse Oximetry 99 09/11/24 03:04 Oxygen Delivery Room Air 09/11/24 00:11 MDM - Chest Pain MDM Narrative Medical decision making narrative: 39-year-old female with history of migraines presents to emergency department for headache and chest pain. See HPI for further history. Triage vitals with mildly elevated blood pressure 148/83, otherwise unremarkable. Patient is afebrile nontoxic appearing resting comfortably in exam bed. She is neurovascularly intact. CBC without leukocytosis or anemia. Chemistries with chronic transaminitis with AST of 64 and ALT of 79, unchanged from prior. Lipase within normal limits. EKG shows normal sinus rhythm with a rate of 74 ppm, normal KS interval, normal QRS duration, normal QTC, no ischemic changes. Troponin is undetectable x2. Lipase within normal limit. PE ruled out with PERC. Patient updated on results. She received IV fluids, headache cocktail, Pepcid and GI cocktail. Pt reevaluated and states and now tearful and anxious. Suspect component of anxiety. Will provide Ativan and reevaluate. She does note resolution of headache. Patient given Ativan with improvement. On re-evaluation she is resting comfortably in exam bed. Advised to follow-up closely with her PCP and keep daily BP log. Discussed strict ED return precautions. She is agreeable with the plan verbalized understanding. Discharged in stable condition. Lab Data 09/10/24 20:28 09/10/24 20:28 Labs: Lab Results 09/10/24 09/11/24 Range/Units 20:28 00:07 WBC 9.8 (4.5-10.0) K/mm3 RBC 5.31 (4.2-5.4) M/mm3 Hgb 13.3 (12.0-15.0) g/dL Hct 41.8 (37.0-47.0) % MCV 78.7 L (80-100) fl MCH 25.0 L (26-34) pg MCHC 31.8 L (32-36) g/dl RDW 13.5 (11.5-14.5) % Plt Count 238 (150-375) k/mm3 MPV 11.1 H (7.4-10.4) fl Immature Gran % (Auto) 0.5 (0-0.5) % Neut % (Auto) 57.3 (45.5-73.1) % Lymph % (Auto) 33.6 (18.3-44.2) % [place] % (Auto) 6.2 (2.6-8.5) % Eos % (Auto) 1.7 (0-4.4) % Baso % (Auto) 0.7 (0.2-1.2) % Lymph # (Auto) 3.31 H (0.9-3.2) K/mm3 [place] # (Auto) 0.6 (0.1-0.6) K/mm3 Eos # (Auto) 0.2 (0-0.3) K/mm3 Baso # (Auto) 0.1 (0.0-0.1) K/mm3 Abs Immat Gran (auto) 0.05 H (0.00-0.031) K/mm3 Absolute Neuts (auto) 5.6 (1.3-6.7) K/mm3 Absolute Nucleated RBC 0.000 (0.0-0.012) K/mm3 Nucleated RBC % 0.0 (0.0-0.2) % PT 12.7 (11.1-14.7) Seconds INR 0.9 APTT 30.2 (22.3-36.8) Seconds Sodium 138 (137-145) mmol/L Potassium 3.9 (3.4-5.0) mmol/L Chloride 107 (98-107) mmol/L Carbon Dioxide 23 (22-30) mmol/L Anion Gap 8 (4-12) mmol/L BUN 8 (7-17) mg/dL Creatinine 0.55 L (0.7-1.0) mg/dL Estim Creat Clear Calc 145 ml/min Estimated GFR > 60 (59 - ) Glucose 98 (65-110) mg/dL Calcium 9.8 (8.4-10.2) mg/dL Total Bilirubin 0.5 (0.2-1.3) mg/dL AST 64 H (14-36) U/L ALT 79 H (6-35) U/L Alkaline Phosphatase 86 (38-126) U/L Troponin I < 0.012 < 0.012 (0.000-0.034) ng/mL Total Protein 8.0 (6.3-8.2) g/dL Albumin 4.3 (3.5-5.1) g/dL Lipase 60 (23-300) U/L Discharge Plan Discharge Clinical Impression: Atypical chest pain Acute tension headache Qualifiers: Intractability: intractable Qualified Code(s): G44.201 - Tension-type headache, unspecified, intractable Patient Disposition: Home Condition: Stable Instructions: Antibiotic Form, Chest Pain (DC), Acute Headache (DC) Additional Instructions: Please take your blood pressure daily and log it as directed follow-up with your primary care provider. Return to the emergency department if you develop any new or worsening symptoms. Patient Language: Yoruba Prescriptions: No Action benzonatate 100 mg capsule 100 mg PO BID PRN (Reason: cough) Qty: 14 0RF cefdinir 300 mg capsule 300 mg PO Q12H 7 Days Qty: 14 0RF pantoprazole [Protonix] 40 mg tablet,delayed release (DR/EC) 40 mg PO HS Qty: 14 0RF nitrofurantoin monohyd/m-cryst [Macrobid] 100 mg capsule 100 mg PO Q12H 5 Days Qty: 10 0RF Rx Instructions: must administer with a meal/food Follow-up/Referrals: UNKNOWN,DOCTOR [Primary Care Provider] - Quality HEART score for chest pain patients History: slightly suspicious ECG: normal Age: < or = to 45 years Risk factors: 1 or 2 risk factors Troponin: < or = to 1x normal limit Heart score: 1
--- OUTSIDE RECORDS SUMMARY | 2024-09-10 23:51 | XMS_ITS | Clinical Summary ---
Author Organization [facility] Address [address] [place] [address] Care Team Providers Care Stone And Concrete Washer Name Role Phone Gaye Us MICHELLE-MANAGEMENT CONSULTANT Primary Care Provider [phone] Source Comments [facility],non-owned Affiliates and Associated Physician Practices is amultiple site organization consisting of ambulatory clinics and hospital sitesin [place], [place], [place]. This disclosure is being madepursuant to the Care Everywhere program and may not contain all information available regarding this patient. Last updated 18.[facility] [employer] Allergies Active Allergy Reactions Criticality Noted Date [...] age to complete this topic Care Teams Stone And Concrete Washer Relationship Specialty Start Date End Date Gaye Us APRN-LULÚ [address] [place] [phone] PCP - General Nurse Practitioner 12/14/23
--- OUTSIDE RECORDS SUMMARY | 2024-09-10 23:51 | XMS_ITS | Referral Summary ---
Author Organization [facility] C Address [address] [place] [place] [address] Care Team Providers Care Probation And Parole Officer Name Role Phone Gaye Us NP Primary Care Provider [phone] Encounters Date Type Department Care Team Description 08/31/2024 2:30 PM CDT Office Visit [facility] Primary Care at [address] [phone] Gaye Us NP Paresthesia and pain of both upper extremities (Primary Dx); Chronic pain of both shoulders; Chronic fatigue; HOLDEN on CPAP; Morbid obesity with BMI of 45.0-49.9, adult (HCC); Prediabetes; Vitamin D deficiency; Low mean corpuscular volume (MCV); Screening, lipid 07/24/2024 Telephone [facility] Primary Care at [address] [address] Gaye Us NP 07/12/2024 Telephone [facility] Primary Care at [address] [address] Gaye Us NP 07/12/2024 8:45 AM CDT Office Visit [facility] Primary Care at [address] [phone] Gaye Us NP Acute bronchitis, unspecified organism (Primary Dx); Acute non-recurrent sinusitis, unspecified location; Morbid obesity with BMI of 45.0-49.9, adult (HCC); Prediabetes; Vitamin D deficiency; Low mean corpuscular volume (MCV); Screening for thyroid disorder; Screening, anemia, deficiency, iron; Screening, lipid 07/11/2024 Nurse Triage [facility] Primary Care at [place] [id number] [place] [address] Gaye Us NP from Last [...] to dermatology last visit, has appointment at [facility] in November Will monitor for stability Assessment & Plan (11/04/2023 1:25 PM CDT): Chronic, stable, not on medication Referred to dermatology last visit, has appointment at [facility] in November Will monitor for stability Assessment [...] last visit to gynecology, has appointment at [facility] Obstetrics and Gynecology in November Assessment [...] COVID-19 antigen (07/12/2024 9:00 AM CDT) Pathologist [facility] Influenza A Ag, POC Negative Negative [facility] P[facility] 210 Influenza B Ag, POC Negative Negative [facility] PCP [place] 210 COVID-19 Ag POC Presumptive Negative Presumptive Negative, Invalid [facility] PCP [facility] 210 Comment:Lot [id number] Nasal 07/12/2024 9:00 AM CDT us Gaye Us NP POINT OF CARE TEST ORDERABLES nal Result [facility] [address] * High Risk HPV DNA Detection with Genotyping (Molecular component) (12/06/2023 1:34 PM CDT) [facility] HPV HR 16 Not Detected Not Detected [facility] Comment:Testing performed by : [facility], [address] [place]., [address] HPV HR 18 Not Detected Not Detected [facility] Comment:Testing performed by : [facility], [address] [place]., [address] HPV HR Non 16/18 Not Detected Not [...] this test have been verified by the [facility] Molecular Infectious Disease laboratory. Correlate with separately reported cytology results, as applicable. Interpretive data last revised 22 Testing performed by: [facility], [address] [place]., [address] Endocervical 12/06/2023 1:34 PM CDT 12/07/2023 11:16 AM CDT Narrative [facility] - 12/08/2023 1:17 AM CDT Clinical history and diagnosis->2019 wnl per pt ([place]) Number of vials->1 Testing type->Screening Last menstrual period (date if known)->11/22/23 Rianna Angulo [employer] [facility] BODY FLUIDS AND STOOLS O RDERABLES Final Result [place] [id number] [facility] [place] [address] [facility] * Hepatitis C antibody Blood (10/29/2023 [...] Edited Result - Final Performing Organization Address City/[facility]/ZIP Co de Phone Number [address] [place] [address] from Last 3 Months or Most Recently Relevant to Health Maintenance Insurance [facility] [facility] Care Teams Probation And Parole Officer Relationship Specialty Start Date End Date Gaye Us NP [address] [place] [address] [phone] PCP - General Family Medicine 10/04/23
--- OUTSIDE RECORDS SUMMARY | 2024-09-10 23:51 | XMS_ITS | Clinical Summary ---
Author Organization [facility] C Address [address] [facility] [place] [address] Care Team Providers Care Administrator Of Home Health Name Role Phone Gaye Us NP Primary Care Provider [phone] Allergies Active Allergy Reactions Criticality Noted Date [...] to dermatology last visit, has appointment at [facility] in November Will monitor for stability Assessment & Plan (11/04/2023 1:25 PM CDT): Chronic, stable, not on medication Referred to dermatology last visit, has appointment at [facility] in November Will monitor for stability [...] last visit to gynecology, has appointment at [facility] Obstetrics and Gynecology in November Assessment & [...] Description 08/31/2024 2:30 PM CDT Office Visit [facility] Primary Care at [address] [phone] Gaye Us NP Paresthesia and pain of both upper extremities (Primary Dx); Chronic pain of both shoulders; Chronic fatigue; HOLDEN on CPAP; Morbid obesity with BMI of 45.0-49.9, adult (HCC); Prediabetes; Vitamin D deficiency; Low mean corpuscular volume (MCV); Screening, lipid 07/24/2024 Telephone [facility] Primary Care at [address] [phone] Gaye Us NP 07/12/2024 8:45 AM CDT Office Visit [facility] Primary Care at [address] [phone] Gaye Us NP Acute bronchitis, unspecified organism (Primary Dx); Acute non-recurrent sinusitis, unspecified location; Morbid obesity with BMI of 45.0-49.9, adult (HCC); Prediabetes; Vitamin D deficiency; Low mean corpuscular volume (MCV); Screening for thyroid disorder; Screening, anemia, deficiency, iron; Screening, lipid 07/12/2024 Telephone [facility] Primary Care at [address] [phone] Gaye Us NP 07/11/2024 Nurse Triage [facility] Primary Care at [address] [phone] Gaye Us NP from Last [...] CDT) Influenza A Ag, POC Negative Negative [facility] 210 Influenza B Ag, POC Negative Negative [facility] 210 COVID-19 Ag POC Presumptive Negative Presumptive Negative, Invalid [facility] 210 Comment:Lot [id number] Exp [id number] 26 Nasal 07/12/2024 9:00 AM CDT us Gaye Us NP POINT OF CARE TEST ORDERABLES Fi nal Result [facility] [address] * High Risk HPV DNA Detection with Genotyping (Molecular component) (12/06/2023 1:34 PM CDT) HPV HR 16 Not Detected Not Detected [facility] Comment:Testing performed by : [facility], [address] [place]., [address] HPV HR 18 Not Detected Not Detected [facility] Comment:Testing performed by : [facility], [address] [place]., [address] HPV HR Non 16/18 Not Detected Not [...] this test have been verified by the [facility] Molecular Infectious Disease laboratory. Correlate with separately reported cytology results, as applicable. Interpretive data last revised 22 Testing performed by: [facility], [address] [place]., [address] Endocervical 12/06/2023 1:34 PM CDT 12/07/2023 11:16 AM CDT Narrative [facility] - 12/08/2023 1:17 AM CDT Clinical history and diagnosis->2019 wnl per pt ([place]) Number of vials->1 Testing type->Screening Last menstrual period (date if known)->11/22/23 Rianna Angulo NP LAB BODY FLUIDS AND STOOLS O RDERABLES Final Result [facility] [address] [facility] Department [place] [address] [facility] * Hepatitis C antibody [...] ORDER ROSA ISELA Edited Result - Final [facility] [address] [facility] Department [place] [address] from Last 3 Months or Most Recently Relevant to Health Maintenance [facility] Care Teams Administrator Of Home Health Relationship Specialty Start Date End Date Gaye Us MARKETING AUTOMATION ANALYST [address] [place] [id number] PCP - General Family Medicine 10/04/23
[2024-09-10] MEDS: BELLADONNA ALK/PHENOB ELIX 10 ML, MAG HYDROX/ALUMINUM HYD/SIMETH 30 ML, LIDOCAINE 2% VI... PO (23:54)
[2024-09-11 00:11] VITALS: PULSE 74; PULSE 75; RESP 18; O2SAT 99
[2024-09-11] MEDS: diphenhydrAMINE HCl INJ 50 MG/ML VIAL 25 MG IV PUSH (00:13)
[2024-09-11] MEDS: SODIUM CHLORIDE 0.9% IV 1,000 ML 999 ML IV CONT (00:13)
[2024-09-11] MEDS: KETOROLAC 15 MG/ML VIAL (*BKC) IV PUSH (00:13)
[2024-09-11] MEDS: FAMOTIDINE 20 MG/2 ML VIAL IV PUSH (00:13)
[2024-09-11 00:27] VITALS: PULSE 76; RESP 20; O2SAT 100
[2024-09-11 00:33] LABS: Troponin I < 0.012 ng/mL (0.000-0.034)
[2024-09-11 00:45] VITALS: PULSE 79; RESP 27; O2SAT 100
[2024-09-11] MEDS: LORazepam INJ (*CRX) 2 MG/ML VIAL 1 MG IV PUSH (00:59)
--- NOTE | 2024-09-11 01:42 | ECG_ITS ---
Test Date: 2024-09-11 01:47:27 Measurements Intervals [place] Rate: 77 P: 22 IA: 181 QRS: -1 QRSD: 131 T: 9 QT: 387 QTc: 440 Interpretive Statements SINUS RHYTHM WITH SINUS ARRHYTHMIA RSR' IN V1 OR V2, PROBABLY NORMAL VARIANT Compared to ECG 09/10/2024 20:20:11 NO SIGNIFICANT CHANGE Electronically Signed On 09-11-2024 10:49:05 CDT by Catarino Palacio M.D.
[2024-09-11 01:50] VITALS: BP 138/77; PULSE 89; RESP 18; O2SAT 100
[2024-09-11 03:04] VITALS: BP 141/85; PULSE 89; RESP 16; O2SAT 99
== END 2024-09-11 03:17 | disposition home or self-care (01) ==
PROVIDERS: Emergency Medicine; Emergency Provider Physician Assistant
DX: R07.89 Other chest pain (principal); G44.201 Tension-type headache, unspecified, intractable
CPT/HCPCS: 36415; 71046; 80053; 83690; 84484; 85025; 85610; 85730; 93005; 96361; 96374; 96375; 99284; A9270; J1200; J1885; J2060; J7030

== ENCOUNTER 2024-09-30 22:15 | Emergency (ER) | payer OTHER, SELFPAY ==
--- OUTSIDE RECORDS SUMMARY | 2024-09-30 22:17 | XMS_ITS | Encounter Summary ---
Author Organization [facility] Healthcare Address [address] [place] [address] Care Team Providers Care Mathematics Academic Chair Name Role Phone Gaye Us SEAMING INSPECTOR Primary Care Provider [phone] Reason for Visit * Reason Onset Date Comments Medical Question/Miscellaneous 09/29/2024 Encounter Details Date Type Department Care Team ([facility] Contact Info) Description 09/29/2024 Telephone [facility] Primary Care at [address] [phone] Gaye Us NP [facility] [address] [address] Medical Question/Miscellaneous Social History Tobacco Use Types Packs/Day Years Used Date Smoking Tobacco: Former Cigarettes 2006 Smokeless Tobacco: Never Comments:1/2 pack daily. AUDIT-C Answer Date Recorded [...] more points, staff should administer the PHQ-9) 0 09/14/2024 PHQ-9 Answer Date Recorded PHQ-9 Total Score 13 11/04/2023 Comments No Sex and Gender Information Value Date Recorded Sex Assigned at Not on file Legal Sex Female 12:02 PM CDT Gender Identity Not on file Sexual Orientation Not on file documented as of this encounter Miscellaneous Notes * Telephone Encounter - Kay Ching - 09/29/2024 10:00 AM CDT Medical Question/Miscellaneous Caller???s Concern: Patient calling to request that Labs be updated to [facility] since she iscurrently pulling in to get labs for her Assistant Women'S Soccer Coach. Does message need to be routed? No Reason for Warm Transfer: Referral/Order Issue: Patient or Facility staff (Facility staff=doctor's office, lab, or imaging center) is calling with request for urgent order or urgent referral issue (e.g. patient is at facility and there is an issue with order/referral missing) Practice Accepted the Warm Transfer? No Additional Comments If No above and practice asked COVER REMOVER to relay information back to caller. documented in this encounter Plan of Treatment Not on file documented as of this encounter Visit Diagnoses Not on filedocumented in this encounter Care Teams Mathematics Academic Chair Relationship Specialty Start Date End Date Gaye Us NP [address] [place] [phone] PCP - General Family Medicine 10/04/23 documented as of this encounter
--- OUTSIDE RECORDS SUMMARY | 2024-09-30 22:17 | XMS_ITS | Encounter Summary ---
Author Organization [facility] Healthcare Address [address] [place] [address] Care Team Providers Care Cooker Process Cheese Name Role Phone Gaye Us NP Primary Care Provider [phone] Reason for Referral * Diagnostic Imaging (Routine) - Authorized Specialty Diagnoses / Procedures Referred By Contac t Referred To Contact Diagnoses Abnormal menses Procedures US Pelvis W Endovaginal Jarrett Harris MD [address] [place] [address] Phone: tel: fax: [facility] Referral ID Status Reason Start Date Expiration Date V isits Requested Visits Authorized [id number] Authorized 09/29/2024 10/29/2025 1 1 Encounter Details Date Type Department Care Team (Late st Contact Info) Description 09/29/2024 Orders Only [facility] Obstetrical Gynecology [address] [place] [phone] Jarrett Harris MD [address] [place] [address] Abnormal menses (Primary Dx) Social History Tobacco Use Types Packs/Day Years [...] on file documented as of this encounter Progress Notes * Jordy Craven MA - 09/29/2024 1:56 PM CDT Pelvic ultrasound documented in this encounter Plan of Treatment Scheduled Orders Name Type Priority Associated Diagnoses Orde r Schedule US Pelvis W Endovaginal Imaging Schedule Routine, Read Routine (OP Routine) Abnormal menses Expected: 09/29/2024, Expires: 09/29/2025 documented as of this encounter Visit Diagnoses Diagnosis Abnormal menses- Primary Unspecified disorder of menstruation and other abnormal bleeding from female genital tract documented in this encounter Care Teams Cooker Process Cheese Relationship Specialty Start Date End Date Gaye Us NP [address] [place] [phone] PCP - General Family Medicine 10/04/23 documented as of this encounter
--- OUTSIDE RECORDS SUMMARY | 2024-09-30 22:17 | XMS_ITS | Encounter Summary ---
Author Organization [facility] Healthcare Address [address] [place] [address] Care Team Providers Care Supervisor Calibration Name Role Phone Gaye Us NP Primary Care Provider [phone] Encounter Details Date Type Department Care Team (Late st Contact Info) Description 09/30/2024 Results Follow-Up [facility] Obstetrical Gynecology [address] [phone] Nette Wade MD [address] [address] DHEA-sulfate, Follicle stimulating hormone, Prolactin, Total testosterone Social History Tobacco Use Types Packs/Day Years [...] on file documented as of this encounter Plan of Treatment Not on file documented as of this encounter Visit Diagnoses Not on filedocumented in this encounter Care Teams Supervisor Calibration Relationship Specialty Start Date End Date Gaye Us NP [address] [place] [address] [phone] PCP - General Family Medicine 10/04/23 documented as of this encounter
--- OUTSIDE RECORDS SUMMARY | 2024-09-30 22:17 | XMS_ITS | Encounter Summary ---
Author Organization [facility] Healthcare Address [address] [place] [address] Care Team Providers Care Floor Space Allocator Name Role Phone Gaye Us NP Primary Care Provider [phone] Encounter Details Date Type Department Care Team (Late st Contact Info) Description 09/28/2024 Telephone [facility] Obstetrical Gynecology [address] [phone] Jarrett Harris MD [address] [id number] Social History Tobacco Use Types Packs/Day Years [...] encounter Miscellaneous Notes * Telephone Encounter - Jordy Craven MA - 09/28/2024 1:20 PM CDT Patient called in. C/o irregular bleeding (long hx of irregular periods) last seen sharlene first time in November 2023. They already discussed the irregular periods, suspecting PCOS/endometriosis/fibroids Labs were ordered, never completed Had ultrasound visit in January 2024, canceled by patient due to being sick. Never rescheduled it Next step: Do the labs and get back on for ultrasound appointment correct? She is aware that Sharlene is not with our practice anymore documented in this encounter Plan of Treatment Not on file documented as of this encounter Visit Diagnoses Not on filedocumented in this encounter Care Teams Floor Space Allocator Relationship Specialty Start Date End Date Gaye Us NP [address] [place] [id number] PCP - General Family Medicine 10/04/23 documented as of this encounter
--- OUTSIDE RECORDS SUMMARY | 2024-09-30 22:17 | XMS_ITS | Referral Summary ---
Author Organization [facility] Address [address] [place] [address] Care Team Providers Care Ash Kier Boiler Name Role Phone Gaye Us NP Primary Care Provider [phone] Encounters Date Type Department Care Team Description 09/30/2024 Results Follow-Up [facility] Obstetrical Gynecology [address] [place] [address] [address] [place] [address] Nette Wade MD DHEA-sulfate, Follicle stimulating hormone, Prolactin, Total testosterone 09/29/2024 Orders Only [facility] Obstetrical Gynecology [address] [place] [address] [address] [place] [address] Jarrett Harris MD Abnormal menses (Primary Dx) 09/29/2024 10:25 AM CDT Lab [facility] [address] [place] [id number] Abnormal menses 09/29/2024 10:10 AM CDT Lab [facility] [address] [place] [id number] Paresthesia and pain of both upper extremities; Chronic fatigue; Low mean corpuscular volume (MCV); Prediabetes; Screening, lipid; Morbid obesity with BMI of 45.0-49.9, adult (HCC); Vitamin D deficiency 09/29/2024 Telephone [facility] Primary Care at [address] [place] [address] Gaye Us NP Medical Question/Miscellaneo us 09/28/2024 Telephone [facility] Obstetrical Gynecology [address] [place] [address] [address] [place] [address] Jarrett Harris MD 09/28/2024 Telephone [facility] Pulmonary [address] [place] [address] Maikel Paniagua MD Orders Only 09/28/2024 11:00 AM CDT Office Visit [facility] Pulmonary [address] [address] Maikel Paniagua MD HOLDEN on CPAP 09/14/2024 8:30 AM CDT Office Visit [facility] Primary Care at [address] [place] [address] Gaye Us NP Hypertension, essential (Primary Dx); Chest pain, unspecified type; Gastroesophageal reflux disease, unspecified whether esophagitis present; Morbid obesity with BMI of 45.0-49.9, adult (HCC) 09/12/2024 Telephone [facility] Primary Care at [address] [place] [address] Gaye Us NP 08/31/2024 2:30 PM CDT Office Visit [facility] Primary Care at [address] [place] [address] Gaye Us NP Paresthesia and pain of both upper extremities (Primary Dx); Chronic pain of both shoulders; Chronic fatigue; HOLDEN on CPAP; Morbid obesity with BMI of 45.0-49.9, adult (HCC); Prediabetes; Vitamin D deficiency; Low mean corpuscular volume (MCV); Screening, lipid 07/24/2024 Telephone [facility] Primary Care at [address] [place] [phone] Gaye Us NP 07/12/2024 Telephone [facility] Primary Care at [address] [address] Gaye Us NP 07/12/2024 8:45 AM CDT Office Visit [facility] Primary Care at [address] [address] Gaye Us NP Acute bronchitis, unspecified organism (Primary Dx); Acute non-recurrent sinusitis, unspecified location; Morbid obesity with BMI of 45.0-49.9, adult (HCC); Prediabetes; Vitamin D deficiency; Low mean corpuscular volume (MCV); Screening for thyroid disorder; Screening, anemia, deficiency, iron; Screening, lipid 07/11/2024 Nurse Triage [facility] Primary Care at [address] [phone] Gaye Us NP from Last 3 Months Allergies Active Allergy Reactions Criticality Noted Date Comments Sulfamethoxazole-Trimethoprim Hives,Edema Medium 10/03 Penicillins Hives,Edema Medium 10/04/2023 Prednisone Hives,Edema Medium 10/04/2023 Medications cholecalciferol (VITAMIN D-3) 5,000 unit tabletIndication s:Well woman exam with routine gynecological exam Take 1 tablet (5,000 Units total) by mouth daily Active pantoprazole DR (PROTONIX) 40 mg EC tabletIndication s:Postprandial epigastric pain Take 1 tablet (40 mg total) by mouth daily 30 tablet 02/17/20 24 Active Additional Information Patient not taking.Reason: prn, Reported on 09/28/2024 gabapentin (NEURONTIN) 300 mg capsuleIndicatio ns:Paresthesia and pain of both upper extremities TAKE 1 CAP BY MOUTH DAILY FOR 3 DAYS, 1 TWICE DAILY FOR 3 DAYS, THEN 1 THREE TIMES DAILY THEREAFTER 90 capsule 09/29/19 25 Active gabapentin (NEURONTIN) 300 mg capsuleIndicatio ns:Paresthesia and pain of both upper extremities Take one capsule daily for 3 days, then increase to one capsule BID for 3 days, then increase to one capsule TID for 3 days 90 capsule 09/01/19 25 2024 Discontinued Active Problems Problem Noted Date Diagnosed Date Hypertension, essential 09/14/2024 Assessment & Plan (09/14/2024 9:04 AM CDT): New diagnosis Advised to limit caffeine to no more than 2 servings per day, to not add salt with cooking or at the tablet, and avoid processed foods Encouraged to: Make healthy food choices, limiting intake of concentrated sweets, cholesterol, and saturated fat Monitor daily caloric intake and portion sizes Exercise most days of the week for a goal of at least 150 minutes of exercise per week Chest pain 09/14/2024 Assessment & Plan (09/14/2024 9:06 AM CDT): Resolved, likely not cardiac or pulm Reviewed ER notes from 09/10/24, including CXR, EKG, and lab work Gastroesophageal reflux disease 09/14/2024 Assessment & Plan (09/14/2024 9:06 AM CDT): Resolved Encouraged to monitor for triggers and avoid if possible Advised can take Pepcid AC 1/2 hour before meals if consuming foods that trigger symptoms Paresthesia and pain of both upper extremities 0 09/03/2024 Assessment & Plan (09/03/2024 11:14 AM CDT): Uncontrolled Started on gabapentin Ordered EMG and nerve conduction studies of bilateral upper extremities HOLDEN on CPAP 08/31/2024 Assessment & Plan (09/28/2024 11:42 AM CDT): The patient continues to benefit from CPAP at 14 cm water pressure for ongoing symptoms HODLEN. Her is noticing intermittent snoring under the mask and her AHI is 0.9. I will send an order to her supplier, who was Ed, to adjust the setting to an auto titrating unit with a range of 14-18 cm water pressure. She will follow up here in 2 months to assess her progress. Assessment & Plan (09/03/2024 11:10 AM CDT): [...] to dermatology last visit, has appointment at [facility] in November Will monitor for stability Assessment & Plan (11/04/2023 1:25 PM CDT): Chronic, stable, not on medication Referred to dermatology last visit, has appointment at [facility] in November Will monitor for stability Assessment [...] of 45.0-49.9, adult 09/24 Assessment & Plan (09/14/2024 9:02 AM CDT): Worsened Encouraged to: Make healthy food choices, limiting intake of concentrated sweets, cholesterol, and saturated fat Monitor daily caloric intake and portion sizes Exercise most days of the week for a goal of at least 150 minutes of exercise per week Assessment & Plan (08/31/2024 2:46 PM CDT): [...] to gynecology, has appointment at [facility] Obstetrics and Gynecology in November Assessment [...] return precautions given Abnormal hemoglobin 07/12/2024 09/04/19 Encounter to establish care 10/06/2023 11/04/2023 Assessment [...] Used Date Smoking Tobacco: Former Cigarettes 2 2006 Smokeless Tobacco: Never Tobacco Cessation:Counseling Given: [...] Sign Reading Time Taken Comments Blood Pressure 128/74 09/28/2024 11:13 AM CDT Pulse 80 09/28/2024 11:13 AM CDT Temperature 36.4 C (97.6 F) 09/28/2024 11:13 AM CDT Respiratory Rate 21 09/28/2024 11:13 AM CDT Oxygen Saturation 99% 09/28/2024 11:13 AM CDT Inhaled Oxygen Concentration - - Weight 121.1 kg (267 lb) 09/28/2024 11:13 AM CDT Height 154.9 cm (5' 1) 09/28/2024 11:13 AM CDT Body Mass Index 50.45 09/28/2024 11:13 AM CDT Plan of Treatment Not on file Procedures Procedure Name Priority Date/Time Associated Diagnosis Comments TOTAL TESTOSTERONE Routine 09/29/2024 10 :35 AM CDT Abnormal menses PROLACTIN Routine 09/29/2024 10:35 AM CDT Abnormal menses FOLLICLE STIMULATING HORMONE Routine 09/29/2024 10:35 AM CDT Abnormal menses DHEA-SULFATE Routine 09/29/2024 10:35 AM CDT Abnormal menses EGFR Routine 09/29/2024 10:28 AM CDT Prediabetes DIFFERENTIAL AUTO Routine 09/29/2024 10: 28 AM CDT Chronic fatigue Low mean corpuscular volume (MCV) HEMOGLOBIN A1C Routine 09/29/2024 10:28 AM CDT Prediabetes VITAMIN D 25 HYDROXY Routine 09/29/2024 10:28 AM CDT Vitamin D deficiency THYROID FUNCTION CASCADE Routine 09/29/2024 10:28 AM CDT Morbid obesity with BMI of 45.0-49.9, adult (HCC) Chronic fatigue LIPID PANEL Routine 09/29/2024 10:28 AM CDT Screening, lipid COMPREHENSIVE METABOLIC PANEL Routine 09/29/2024 10:28 AM CDT Prediabetes CBC WITH AUTO DIFFERENTIAL Routine 09/29/2024 10:28 AM CDT Chronic fatigue Low mean corpuscular volume (MCV) VITAMIN B12 Routine 09/29/2024 10:28 AM CDT Paresthesia and pain of both upper extremities POC INFLUENZA A/B, COVID-19 ANTIGEN Routine 07/12/2024 [...] Recently Relevant to Health Maintenance Results * Prolactin (09/29/2024 10:35 AM CDT) Prolactin 7.1 4.8 - 23.3 ng/mL Comment:Testing performed by : [facility], [address] [place] [address]., [id number] Blood 09/29/2024 10:3 5 AM CDT 09/29/2024 3:04 PM CDT Rianna Angulo [employer] LAB BLOOD ORDERABLES Final R esult Performing Organization Address City/[facility]/ZIP Co de Phone Number [place] [place] [address] * DHEA-sulfate (09/29/2024 10:35 AM CDT) DHEA-S 134.0 60.9 - 337.0 mcg/dL Comment:Testing performed by : [facility], [address] [place] [address], [address] Blood 09/29/2024 10:3 5 AM CDT 09/29/2024 3:03 PM CDT Rianna Angulo [employer] LAB BLOOD ORDERABLES Final R esult [address] [place] [address] * Total testosterone (09/29/2024 10:35 AM CDT) Testosterone 17.70 8.40 - 48.10 ng/dL Blood 09/29/2024 10:3 5 AM CDT 09/29/2024 2:18 PM CDT Rianna Stone Kev [employer] LAB BLOOD ORDERABLES Final R esult Performing Organization Address City/[facility]/ZIP Co de Phone Number SHILPI [address] [address] * Follicle stimulating hormone (09/29/2024 10:35 AM CDT) FSH 4.3 1.5 - 12.4 IUnits/L Blood 09/29/2024 10:3 5 AM CDT 09/29/2024 2:18 PM CDT Rianna Angulo LAB BLOOD ORDERABLES Final R esult Performing Organization Address [facility] Co de Phone Number [place] [address] * eGFR (09/29/2024 10:28 AM CDT) Pathologist [facility] eGFR >90 >=60 mL/min/1. 73 m2 Comment: Interpretive Data Reference Interval Normal >/= 90 mL/min/1.73m2 Mildly decreased* 60 - 89 mL/min/1.73m2 Mildly to moderately decreased 45 - 59 mL/min/1.73m2 Moderately to severely decreased 30 - 44 mL/min/1.73m2 Severely decreased 15 - 29 mL/min/1.73m2 Kidney Failure < 15 mL/min/1.73m2 *Relative to young adult level Estimated glomerular filtration rate is determined by the 2020 CKD-EPI equation recommended by the National Kidney Foundation (A Unifying Approach to GFR Estimation: Recommendations of the NKF-ASK Task Force on Reassessing the Inclusion of Race in Diagnosing Kidney Disease, JASN 202). The CKD-EPI equation should not be used for patients with unstable renal function and has not been validated in children and those over 70. Current interpretive data was last reviewed 2021. Testing performed by: [facility], [address] [place] [address]., [address] Blood 09/29/2024 10:2 8 AM CDT 09/29/2024 12:46 PM CDT us Gaye Us NP LAB BLOOD ORDERABLES Final Resul t SHILPI [address] [facility] Department [place] [address] * Differential, auto (09/29/2024 10:28 AM CDT) Neutrophil abs 4.44 1.50 - 6.50 K/[place] Comment:Testing performed by : [address] [address] Imm gran abs 0.03 0.00 - 0.10 K/[place] SHILPI Comment:Testing performed by : [address] [address] Lymphocyte abs 2.21 0.80 - 3.30 K/[place] SHILPI Comment:Testing performed by : [address] [address] Monocyte abs 0.48 0.20 - 0.80 K/[place] SHILPI Comment:Testing performed by : [address] [address] Eosinophil abs 0.19 0.00 - 0.50 K/[place] SHILPI Comment:Testing performed by : [address] [address] Basophil abs 0.06 0.00 - 0.10 K/[place] SHILPI Comment:Testing performed by : [address] [address] Neutrophil pct 59.9 % [facility] Comment: Interpretive Data Percent cell count reference ranges are not reported, since discordance with absolute values may lead to misinterpretation of CBC data. Current Interpretive Data was last revised on 2017. Testing performed by: [address] [address] Imm gran pct 0.4 % SHILPI Comment: Interpretive Data Percent cell count reference ranges are not reported, since discordance with absolute values may lead to misinterpretation of CBC data. Current Interpretive Data was last revised on 2017. Testing performed by: [address] [address] Lymphocyte pct 29.8 % [facility] Comment: Interpretive Data Percent cell count reference ranges are not reported, since discordance with absolute values may lead to misinterpretation of CBC data. Current Interpretive Data was last revised on 2017. Testing performed by: [address] [address] Monocyte pct 6.5 % [facility] Comment: Interpretive Data Percent cell count reference ranges are not reported, since discordance with absolute values may lead to misinterpretation of CBC data. Current Interpretive Data was last revised on 2017. Testing performed by: [address] [address] Eosinophil pct 2.6 % [facility] Comment: Interpretive Data Percent cell count reference ranges are not reported, since discordance with absolute values may lead to misinterpretation of CBC data. Current Interpretive Data was last revised on 2017. Testing performed by: [address] [address] Basophil pct 0.8 % [facility] Comment: Interpretive Data Percent cell count reference ranges are not reported, since discordance with absolute values may lead to misinterpretation of CBC data. Current Interpretive Data was last revised on 2017. Testing performed by: [address] [address] Blood 09/29/2024 10:2 8 AM CDT 09/29/2024 11:40 AM CDT us Gaye Us NP LAB BLOOD ORDERABLES Final Resul t SHILPI [address] [facility] Department [place] [address] * Thyroid Function Carbon (09/29/2024 10:28 AM CDT) TSH 1.26 0.30 - 4.20 mcIUnit/mL Comment:Testing performed by : [address] [address] Blood 09/29/2024 10:2 8 AM CDT 09/29/2024 12:46 PM CDT us Gaye Us [employer] LAB BLOOD ORDERABLES Final Resul t [facility] [address] [facility] Department [place] [address] * (ABNORMAL) CBC with auto differential (09/29/2024 10:28 AM CDT) WBC 7.41 3.80 - 9.90 K/[place] Comment:Testing performed by : [address] [address] Hgb 12.5 11.9 - 15.5 g/dL SHILPI Comment:Testing performed by : [address] [address] Hct 38.8 35.6 - 45.5 % SHILPI Comment:Testing performed by : [address] [address] Plt 285 150 - 400 K/[place] SHILPI Comment:Testing performed by : [address] [address] MPV 12.1 9.1 - 12.3 fL SHILPI Comment:Testing performed by : [address] [address] RBC 5.01 3.90 - 5.20 M/[place]umm SHILPI Comment:Testing performed by : [address] [address] MCV 77.4(L) 81.3 - 96.4 fL SHILPI Comment:Testing performed by : [address] [address] MCH 25.0(L) 27.1 - 33.3 pg SHILPI Comment:Testing performed by : [address] [address] MCHC 32.2(L) 32.3 - 35.7 g/dL SHILPI Comment:Testing performed by : [address] [address] RDW CV 13.7 11.1 - 14.9 % SHILPI [place] Comment:Testing performed by : [address] [address] RDW SD 38.3 35.7 - 48.1 fL [place] Comment:Testing performed by : [address] [address] NRBC abs 0.00 0.00 - 0.01 K/[place] SH[place]PI [place] Comment:Testing performed by : [address] [address] Blood 09/29/2024 10:2 8 AM CDT 09/29/2024 11:40 AM CDT Gaye Us NP LAB BLOOD ORDERABLES Final Resul t Performing Organization Address City/[facility] Co de Phone Number [place] [place] [address] * Vitamin D 25 hydroxy (09/29/2024 10:28 AM CDT) Pathologist [facility] Vitamin D 25-OH 37.0 30.0 - 80.0 ng/mL Blood 09/29/2024 10:2 8 AM CDT 09/29/2024 2:18 PM CDT Gaye Us NP LAB BLOOD ORDERABLES Final Resul t Performing Organization Address City/[facility] Co de Phone Number [address] [address] * (ABNORMAL) Hemoglobin A1c (09/29/2024 10:28 AM CDT) Pathologist [facility] Hgb A1C 5.8(H) 4.0 - 5.6 % Comment:Testing performed by : [address] [address] Estimated Average Glucose 120 mg/dL SHILPI [place] Comment: The ADA recommends reporting an estimated Average Glucose (eAG) with all Hemoglobin A1c results using the equation derived from a study of 507 normal and diabetic adults. Minority populations were underrepresented and children were not included. (Diabetes Care 31:0584-3808, 2008). The eAG is not equivalent to a fasting glucose. Testing performed by: [address] [address] Blood 09/29/2024 10:2 8 AM CDT 09/29/2024 11:40 AM CDT Gaye Us NP LAB BLOOD ORDERABLES Final Resul t Performing Organization Address [facility] Co de Phone Number [address] [place] [address] * Vitamin B12 (09/29/2024 10:28 AM CDT) Vitamin B12 616 230 - 1,250 pg/mL Comment:Testing performed by : [address] [address] Blood 09/29/2024 10:2 8 AM CDT 09/29/2024 12:46 PM CDT Gaye Us NP LAB BLOOD ORDERABLES Final Resul t Performing Organization Address [facility] Co de Phone Number [address] [address] * (ABNORMAL) Lipid panel (09/29/2024 10:28 AM CDT) Cholesterol 211(H) 30 - 199 mg/dL Comment: Interpretive Data Ages < or = 19 years Acceptable: <170 mg/dL Borderline high: 170-199 mg/dL High: >or= 200 mg/dL Ages > or = 20 years Desirable: <200 mg/dL Borderline high: 200-239 mg/dL High: >or= 240 mg/dL Literature References: 1. Expert Panel on Integrated Guidelines for Cardiovascular Health and Risk Reduction in Children and Adolescents. Pediatrics 2011;128:S213 2. NCEP Expert Panel. Circulation 2004;110:227 Current Interpretive Data was last revised on 2017. Testing performed by: [address] [address] Triglycerides 170(H) <=149 mg/dL SHILPI Comment: Interpretive Data Ages < or = 9 years Acceptable: <75 mg/dL Borderline high: 75-99 mg/dL High: >or= 100 mg/dL Ages 10 to 20 years Acceptable: <90 mg/dL Borderline high: 90-129 mg/dL High: >or= 130 mg/dL Ages > or = 20 years Desirable: <150 mg/dL Borderline high: 150-199 mg/dL High: 200-499 mg/dL Very high: >or= 499 mg/dL Literature References: 1. Expert Panel on Integrated Guidelines for Cardiovascular Health and Risk Reduction in Children and Adolescents. Pediatrics 2011;128:S213 2. NCEP Expert Panel. Circulation 2004;110:227 Current Interpretive Data was last revised on 2017. Testing performed by: [address] [address] HDL 42 >=40 mg/dL SHILPI Comment: Interpretive Data Ages < or = 19 years Acceptable: >45 mg/dL Borderline low: 40-45 mg/dL Low: <40 mg/dL Ages > or = 20 years Desirable: >or= 60 mg/dL Low: <40 mg/dL Literature References: 1. Expert Panel on Integrated Guidelines for Cardiovascular Health and Risk Reduction in Children and Adolescents. Pediatrics 2011;128:S213 2. NCEP Expert Panel. Circulation 2004;110:227 Current Interpretive Data was last revised on 2017. Testing performed by: [address] [address] LDL, calculated 138(H) <=129 mg/dL SHILPI Comment: Interpretive Data Ages < or = 19 years Acceptable: <110 mg/dL Borderline high: 110-129 mg/dL High: >or= 130 mg/dL Ages > or = 20 years Optimal: <100 mg/dL Near optimal: 100-129 mg/dL Borderline high: 130-159 mg/dL High: >160 mg/dL Calculated using the Agarwal LDL-C estimating equation. This equation was implemented on 2023. Prior to this date LDL-C was estimated using the Friedewald equation. Literature References: 1. Expert Panel on Integrated Guidelines for Cardiovascular Health and Risk Reduction in Children and Adolescents. Pediatrics 2011;128:S213 2. NCEP Expert Panel. Circulation 2004;110:227 3. Stefano M et al. KRISTAL Cardiol. 2020 August 24;5(5):540-548. doi: 10.1001/jamacardio.2020.0013 Current Interpretive Data was last revised on 2023. Testing performed by: [address] [address] Non-HDL Cholesterol 169 mg/dL SHILPI Comment: Interpretive Data Ages < or = 19 years Acceptable: <120 mg/dL Borderline high: 120-144 mg/dL High: >145 mg/dL Ages > or = 20 years When triglycerides are >200 mg/dL, Non-HDL cholesterol is a secondary target of therapy with treatment goals that are 30 mg/dL greater than the LDL cholesterol target. Literature References: 1. Expert Panel on Integrated Guidelines for Cardiovascular Health and Risk Reduction in Children and Adolescents. Pediatrics 2011;128:S213 2. NCEP Expert Panel. Circulation 2004;110:227 Current Interpretive Data was last revised on 2017. Testing performed by: [address] [address] Chol/HDL ratio 5 SHILPI Comment:Testing performed by : [address] [address] Blood 09/29/2024 10:2 8 AM CDT 09/29/2024 12:46 PM CDT Narrative SHILPI - 09/29/2024 1:18 PM CDT Has the patient been fasting for 8 hours or more?->Yes us Gyae Us NP LAB BLOOD ORDERABLES Final Resul t SHILPI [place] [address] [facility] Department [place] [address] * (ABNORMAL) Comprehensive metabolic panel (09/29/2024 10:28 AM CDT) [facility] Signature Sodium 141 135 - 145 mmol/L Comment:Testing performed by : [address] [address] Potassium, pl 3.7 3.3 - 4.9 mmol/L SHILPI Comment:Testing performed by : [address] [address] Chloride 104 97 - 110 mmol/L SHILPI Comment:Testing performed by : [address], [place]., [address] CO2 24 22 - 32 mmol/L SHILPI Comment:Testing performed by : [address], [place]., [address] Anion gap 13 2 - 15 mmol/L [facility] Comment:Testing performed by : [address] [address] BUN 8 6 - 25 mg/dL SHILPI Comment:Testing performed by : [address], [place]., [address] Creatinine 0.60 0.60 - 1.10 mg/dL SHILPI Comment:Testing performed by : [address] [address] Glucose 117 70 - 199 mg/dL [facility] Comment: Interpretive Data Fasting glucose >/= 126 mg/dl is diagnostic for diabetes. Fasting is defined as no caloric intake for at least 8 hours. Fasting glucose between 100 mg/dl to 125 mg/dl is diagnostic of prediabetes. In a patient with classic symptoms of hyperglycemia or hyperglycemic crisis, a random glucose >/= 200 mg/dl is diagnostic for diabetes. In the absence of unequivocal hyperglycemia, results should be confirmed by repeat testing. The classification and Diagnosis of Diabetes Diabetes Care 202; 46: S19-S40. Current interpretive data was last revised 2022. Testing performed by: [address] [address] Calcium 10.0 8.5 - 10.3 mg/dL SHILPI Comment:Testing performed by : [address] [address] Bilirubin, total 0.5 0.1 - 1.2 mg/dL SHILPI Comment:Testing performed by : [address] [address] Protein, pl 7.8 6.5 - 8.5 g/dL SHILPI Comment:Testing performed by : [facility], [address] [place] [address]., [address] Albumin 4.2 3.5 - 5.0 g/dL SHILPI Comment:Testing performed by : [facility], [address] [place] [address]., [address] Alk phos 87 40 - 130 Units/L SHILPI Comment:Testing performed by : [address] [address] ALT 85(H) 7 - 45 Units/L SHILPI Comment:Testing performed by : [address] [address] AST 60(H) 10 - 45 Units/L SHILPI Comment:Testing performed by : [facility], [address] [place] [address]., [address] Blood 09/29/2024 10:2 8 AM CDT 09/29/2024 12:46 PM CDT Narrative SHILPI - 09/29/2024 1:18 PM CDT Has the patient fasted?->Yes us Gaye Us [employer] LAB BLOOD ORDERABLES Final Resul t [place] [id number] [facility] Department [place] [address] * POC Influenza A/B, COVID-19 antigen (07/12/2024 9:00 AM CDT) Influenza A Ag, POC Negative Negative [facility] [address] Influenza B Ag, POC Negative Negative [facility] COVID-19 Ag POC Presumptive Negative Presumptive Negative, Invalid [facility] Comment:Lot [id number] Exp [id number] 26 Nasal 07/12/2024 9:00 AM CDT us Gaye Us BRIDGE IRONWORKER HELPER POINT OF CARE TEST ORDERABLES Fi nal Result [facility] [id number] [place] [address] * High Risk HPV DNA Detection with Genotyping (Molecular component) (12/06/2023 1:34 PM CDT) HPV HR 16 Not Detected Not Detected [facility] Comment:Testing performed by : [facility], [address] [facility], [address] HPV HR 18 Not Detected Not Detected [facility] Comment:Testing performed by : [facility], [address] [facility], [address] HPV HR Non 16/18 Not Detected Not [...] this test have been verified by the [facility] Molecular Infectious Disease laboratory. Correlate with separately reported cytology results, as applicable. Interpretive data last revised 22 Testing performed by: [facility], [address] [place] [address], [address] Endocervical 12/06/2023 1:34 PM CDT 12/07/2023 11:16 AM CDT Narrative [facility] - 12/08/2023 1:17 AM CDT Clinical history and diagnosis->2019 wnl per pt (Alice) Number of vials->1 Testing type->Screening Last menstrual period (date if known)->11/22/23 Rianna Angulo NP LAB BODY FLUIDS AND STOOLS O RDERABLES Final Result [facility] [address] [facility] [place] [address] [facility] * Hepatitis C antibody Blood [...] ORDER ROSA ISELA Edited Result - Final [facility] [address] [facility] [place] [address] from Last 3 Months or Most Recently Relevant to Health Maintenance Insurance [facility] Care Teams Ash Kier Boiler Relationship Specialty Start Date End Date Gaye Us, BRIDGE IRONWORKER HELPER [address] [place] [address] PCP - General Family Medicine 10/04/23
--- OUTSIDE RECORDS SUMMARY | 2024-09-30 22:17 | XMS_ITS | Encounter Summary ---
Author Organization [facility] Healthcare Address [address] [place] [address] Care Team Providers Care Food Safety Scientist Name Role Phone Gaye Us NP Primary Care Provider [phone] Reason for Referral * Neurology (Routine) - Authorized Specialty Diagnoses / Procedures Referred By Contac t Referred To Contact Neurology Diagnoses Paresthesia and pain of both upper extremities Procedures EMG/NCV - Gaye Us NP [address] [place] [address] Phone: tel: fax: [facility] [address] [place] [address] Phone: tel: fax: Referral ID Status Reason Start Date Expiration Date V isits Requested Visits Authorized [id number] Authorized 08/31/2024 02/22/2025 1 1 * Consultation (Routine) - Closed Specialty Diagnoses / Procedures Referred By Contac t Referred To Contact Pulmonary Disease / Pulmonology Diagnoses HOLDEN on CPAP Gaye Us NP [address] [place] [address] Phone: tel: fax: [facility] Pulmonology [address] [address] Phone: tel: fax: Referral ID Status Reason Start Date Expiration Date V isits Requested Visits Authorized [id number] Closed Specialty Services Required 08/31/2024 09/30/2025 1 1 Question Answer Please select the performing region: [facility] [[id number]] Please select the performing department: [facility] [[id number]] # of visits: 1 Comments Consideration of a sleep study Reason for Visit * Reason Comments Shoulder Pain Wallace; causing numbnes s, tingling, loss of feeling in arm; More so in R arm; Encounter Details Date Type Department Care Team ([facility] Contact Info) Description 08/31/2024 2:30 PM CDT Office Visit [facility] Primary Care at [address] [address] Gaye Us NP [address] [place] [address] Paresthesia and pain of both upper extremities (Primary Dx); Chronic pain of both shoulders; Chronic fatigue; HOLDEN on CPAP; Morbid obesity with BMI of 45.0-49.9, adult (HCC); Prediabetes; Vitamin D deficiency; Low mean corpuscular volume (MCV); Screening, lipid Social History Tobacco Use Types Packs/Day Years [...] on file documented as of this encounter Last Filed Vital Signs Vital Sign Reading [...] 2:32 PM CDT Height 157 cm (5' 1.81) 08/31/2024 2:32 PM CDT Body Mass Index 49.78 08/31/2024 2:32 PM CDT documented in this encounter Patient Instructions * Patient Instructions* Gaye Us NP - 08/31/2024 2:30 PM CDT Be sure to: Get 7-9 hours of sleep a night Make healthy food choices, limiting concentrated sweets, fats, and cholesterol in diet Monitor daily caloric intake and portion sizes Exercise most days of the week for goal of at least 150 minutes of exercise per week documented in this encounter Ordered Prescriptions Prescription Sig Dispense Quantity Refills Last Filled Start Date End Date gabapentin (NEURONTIN) 300 mg capsuleIndications :Paresthesia and pain of both upper extremities Take one capsule daily for 3 days, then increase to one capsule BID for 3 days, then increase to one capsule TID for 3 days 90 capsule 08/31/2024 documented in this encounter Progress Notes * Gaye Us NP - 08/31/2024 2:30 PM CDT Images from the original note were not included. Assessment/Plan: Assessment/Plan Diagnoses and all orders for this visit: Paresthesia and pain of both upper extremities (Primary) Assessment & Plan: Uncontrolled Started on gabapentin Ordered EMG and nerve conduction studies of bilateral upper extremities Orders: - EMG/NCV -; Future - Vitamin B12; Future - gabapentin (NEURONTIN) 300 mg capsule; Take one capsule daily for 3 days, then increase to one capsule BID for 3 days, then increase to one capsule TID for 3 days Chronic pain of both shoulders Assessment & Plan: Worsening Advised can use OTC oral and topical medication Discussed x-rays and referral to orthopedic surgeon, through shared decision- making, will defer until after EMG/nerve conduction studies Chronic fatigue Assessment & Plan: Worsening, likely multifactorial, has HOLDEN, is snoring with CPAP, also under a lot of stress Referral made to sleep medicine Labs ordered Orders: - CBC with auto differential; Future - Thyroid Function [place]; Future HOLDEN on CPAP Assessment & Plan: Uncontrolled, snores and has worsening fatigue Referral made to sleep medicine Orders: - Ambulatory referral to Pulmonology; Future Morbid obesity with BMI of 45.0-49.9, adult (HCC) Assessment & Plan: Worsened Encouraged to: Make healthy food choices, limiting intake of concentrated sweets, cholesterol, and saturated fat Monitor daily caloric intake and portion sizes Exercise most days of the week for a goal of at least 150 minutes of exercise per week Orders: - Thyroid Function [place]; Future Prediabetes Assessment & Plan: Uncontrolled, stability unknown Advised to decrease intake of concentrated sweets and to limit starchy vegetables and white potato to no more than 1/2 cup serving per day Encouraged weight loss Orders: - Comprehensive metabolic panel; Future - Hemoglobin A1c; Future Vitamin D deficiency Assessment & Plan: Uncontrolled, now on supplement Continue on vitamin D3 2000 international units daily with a meal Orders: - Vitamin D 25 hydroxy; Future Low mean corpuscular volume (MCV) Assessment & Plan: Normal hemoglobin and hematocrit, normal iron Will monitor Orders: - CBC with auto differential; Future Screening, lipid - Lipid panel; Future Return in about 10 weeks (around 11/09/2024) for Annual physical. Subjective: Aminata Aponte is a 39 y.o. female here for a visit to discuss her shoulder pain, fatigue, and HOLDEN. HPI Chief Complaint Patient presents with Shoulder Pain Wallace; causing numbness, tingling, loss of feeling in arm; More so in R arm; Bilateral shoulder pain for 5 years, would come and go, now persistent, this is the worse that it has ever been. The pain starts in her shoulders, right worse that left, and radiates down her arms to her fingers on both hands. She describes the pain in her shoulders as sharp and stabbing, with numbness occurring randomly to both her upper extremities including arms, hands/fingers. Fatigue, worse than unusual, historically would resolve with energy drink or coffee Sleep apnea, wears CPAP nightly, says she snores with mask on at night and when she naps during the day. Objective: Review of Systems Constitutional: Positive for fatigue (chronic, worsened). Negative for chills and fever. HENT: Negative for sore throat and trouble swallowing. No loss of taste or smell. Respiratory: Negative for cough and shortness of breath. Gastrointestinal: Negative for anal bleeding, blood in stool, diarrhea, nausea and vomiting. Genitourinary: Negative for hematuria. Musculoskeletal: Positive for arthralgias (bilateral shoulder pain). Negative for myalgias. Skin: Negative for rash. Neurological: Positive for numbness (paresthesias bilateral upper extremities). Negative for headaches. Psychiatric/Behavioral: Positive for sleep disturbance (HOLDEN, uses CPAP nightly, still snores). Vitals BP 142/82 (BP Location: Left arm, Patient Position: Sitting) Pulse 81 Temp 36.4 ??C (97.6 ??F) (Temporal) Resp 14 Ht 157 cm (5' 1.81) Wt 122.7 kg (270 lb 8 oz) SpO2 98% BMI 49.78 kg/m?? Physical Exam Vitals and nursing note reviewed. Constitutional: General: She is not in acute distress. Appearance: Normal appearance. She is not ill-appearing, toxic-appearing or diaphoretic. HENT: Head: Normocephalic and atraumatic. Eyes: General: No scleral icterus. Right eye: No discharge. Left eye: No discharge. Conjunctiva/sclera: Conjunctivae normal. Cardiovascular: Rate and Rhythm: Normal rate and regular rhythm. Heart sounds: Normal heart sounds. No murmur heard. Pulmonary: Effort: Pulmonary effort is normal. Breath sounds: Normal breath sounds. No wheezing, rhonchi or rales. Musculoskeletal: General: No swelling, tenderness, deformity or signs of injury. Normal range of motion. Comments: Bilateral upper extremity skin warm and dry, without edema, abrasions, ecchymosis, or rash, sensation intact Full active ROM to shoulders, elbows, wrists, and fingers Radial pulses palpable and strong Brisk capillary refill noted Hand manufacturing tech equal Skin: General: Skin is warm and dry. Capillary Refill: Capillary refill takes less than 2 seconds. Coloration: Skin is not jaundiced or pale. Findings: No bruising, erythema, lesion or rash. Neurological: General: No focal deficit present. Mental Status: She is alert and oriented to person, place, and time. Psychiatric: Mood and Affect: Mood normal. Behavior: Behavior normal. Thought Content: Thought content normal. Return in about 10 weeks (around 11/09/2024) for Annual physical. Gaye Us SUPERVISOR TREATING AND PUMPING BC documented in this encounter Miscellaneous Notes * Assessment & Plan Note - Gaye Us NP - 09/03/2024 11:14 AM CDTAssociated Problem(s): Paresthesia and pain of both upper extremities Uncontrolled Started on gabapentin Ordered EMG and nerve conduction studies of bilateral upper extremities * Assessment & Plan Note - Gaye Us NP - 09/03/2024 11:10 AM CDTAssociated Problem(s): HOLDEN on CPAP Uncontrolled, snores and has worsening fatigue Referral made to sleep medicine * Assessment & Plan Note - Gaye Us NP - 09/03/2024 11:09 AM CDTAssociated Problem(s): Low mean corpuscular volume (MCV) Normal hemoglobin and hematocrit, normal iron Will monitor * Assessment & Plan Note - Gaye Us NP - 09/03/2024 11:09 AM CDTAssociated Problem(s): Chronic pain of both shoulders Worsening Advised can use OTC oral and topical medication Discussed x-rays and referral to orthopedic surgeon, through shared decision- making, will defer until after EMG/nerve conduction studies * Assessment & Plan Note - Gaye Us NP - 09/03/2024 10:58 AM CDTAssociated Problem(s): Vitamin D deficiency Uncontrolled, now on supplement Continue on vitamin D3 2000 international units daily with a meal * Assessment & Plan Note - Gaye Us NP - 09/03/2024 10:57 AM CDTAssociated Problem(s): Prediabetes Uncontrolled, stability unknown Advised to decrease intake of concentrated sweets and to limit starchy vegetables and white potato to no more than 1/2 cup serving per day Encouraged weight loss * Assessment & Plan Note - Gaye Us NP - 08/31/2024 3:06 PM CDTAssociated Problem(s): Fatigue Worsening, likely multifactorial, has HOLDEN, is snoring with CPAP, also under a lot of stress Referral made to sleep medicine Labs ordered * Assessment & Plan Note - Gaye Us NP - 08/31/2024 2:46 PM CDTAssociated Problem(s): Morbid obesity with BMI of 45.0-49.9, adult (HCC) Worsened Encouraged to: Make healthy food choices, limiting intake of concentrated sweets, cholesterol, and saturated fat Monitor daily caloric intake and portion sizes Exercise most days of the week for a goal of at least 150 minutes of exercise per week * Addendum Note - Karina Mendez MA - 08/31/2024 2:30 PM CDTAddended by: KARINA MENDEZ on: 09/29/2024 10:01 AM Modules accepted: Orders documented in this encounter Plan of Treatment Scheduled Orders Name Type Priority Associated Diagnoses Orde r Schedule EMG/NCV - Neurology Routine Paresthesia and pain of both upper extremities Expected: 09/01/2024, Expires: 08/31/2025 Scheduled Referrals Name Type Priority Associated Diagnoses Order Schedule Ambulatory referral to Pulmonology Outpatient Referral Routine HOLDEN on CPAP 1 Occurrences starting 08/31/2024 until 08/31/2025 documented as of this encounter Results * Vitamin B12 (09/29/2024 10:28 AM CDT) Vitamin B12 616 230 - 1,250 pg/mL Comment:Testing performed by : [address] [address] Blood 09/29/2024 10:2 8 AM CDT 09/29/2024 12:46 PM CDT us Gaye Us COMMUNITY ORGANIZATION WORKER LAB BLOOD ORDERABLES Final Resul t [facility] [address] [facility] Department [place] [address] * (ABNORMAL) CBC with auto differential (09/29/2024 10:28 AM CDT) WBC 7.41 3.80 - 9.90 K/cumm Comment:Testing performed by : [address] [address] Hgb 12.5 11.9 - 15.5 g/dL [facility] Comment:Testing performed by : [address] [address] Hct 38.8 35.6 - 45.5 % [facility] Comment:Testing performed by : [address] [address] Plt 285 150 - 400 K/cumm [facility] Comment:Testing performed by : [address] [address] MPV 12.1 9.1 - 12.3 fL [facility] Comment:Testing performed by : [address] [address] RBC 5.01 3.90 - 5.20 M/cumm [facility] Comment:Testing performed by : [address] [address] MCV 77.4(L) 81.3 - 96.4 fL [facility] Comment:Testing performed by : [address] [address] MCH 25.0(L) 27.1 - 33.3 pg [facility] Comment:Testing performed by : [address] [address] MCHC 32.2(L) 32.3 - 35.7 g/dL [facility] Comment:Testing performed by : [address] [address] RDW CV 13.7 11.1 - 14.9 % [facility] Comment:Testing performed by : [address] [address] RDW SD 38.3 35.7 - 48.1 fL [facility] Comment:Testing performed by : [address] [address] NRBC abs 0.00 0.00 - 0.01 K/cumm [facility] Comment:Testing performed by : [address] [address] Blood 09/29/2024 10:2 8 AM CDT 09/29/2024 11:40 AM CDT us Gaye Us NP LAB BLOOD ORDERABLES Final Resul t [facility] Department [place] [address] * (ABNORMAL) Comprehensive metabolic panel (09/29/2024 10:28 AM CDT) Sodium 141 135 - 145 mmol/L Comment:Testing performed by : [address] [address] Potassium, pl 3.7 3.3 - 4.9 mmol/L [facility] Comment:Testing performed by : [address] [address] Chloride 104 97 - 110 mmol/L [facility] Comment:Testing performed by : [address] [address] CO2 24 22 - 32 mmol/L [facility] Comment:Testing performed by : [address] [address] Anion gap 13 2 - 15 mmol/L [facility] Comment:Testing performed by : [address] [address] BUN 8 6 - 25 mg/dL [facility] Comment:Testing performed by : [address], [place]., [address] Creatinine 0.60 0.60 - 1.10 mg/dL [facility] Comment:Testing performed by : [address] [address] Glucose 117 70 - 199 mg/dL [facility] Comment: Interpretive Data Fasting glucose >/= [...] was last revised 2022. Testing performed by: [address] [address] Calcium 10.0 8.5 - 10.3 mg/dL [facility] Comment:Testing performed by : [address] [address] Bilirubin, total 0.5 0.1 - 1.2 mg/dL [facility] Comment:Testing performed by : [address] [address] Protein, pl 7.8 6.5 - 8.5 g/dL [facility] Comment:Testing performed by : [address] [address] Albumin 4.2 3.5 - 5.0 g/dL [facility] Comment:Testing performed by : [address] [address] Alk phos 87 40 - 130 Units/L [facility] Comment:Testing performed by : [address] [address] ALT 85(H) 7 - 45 Units/L [facility] Comment:Testing performed by : [address], [address] AST 60(H) 10 - 45 Units/L [facility] Comment:Testing performed by : [address] [address] Blood 09/29/2024 10:2 8 AM CDT 09/29/2024 12:46 PM CDT Narrative [facility] - 09/29/2024 1:18 PM CDT Has the patient fasted?->Yes us Gaye Us NP LAB BLOOD ORDERABLES Final Resul t [facility] [address] [facility] Department of Laboratories [place], [place] [id number] * (ABNORMAL) Lipid panel (09/29/2024 10:28 AM [...] last revised on 2017. Testing performed by: [address] [address] Triglycerides 170(H) <=149 mg/dL [facility] Comment: Interpretive [...] last revised on 2017. Testing performed by: [address] [address] HDL 42 >=40 mg/dL [facility] Comment: Interpretive [...] last revised on 2017. Testing performed by: [address] [address] LDL, calculated 138(H) <=129 mg/dL [facility] Comment: [...] NCEP Expert Panel. Circulation 2004;110:227 3. Stefano South et al. KRISTAL Cardiol. 2019August 24;5(5):540-548. doi: 10.1001/jamacardio.2020.0013 Current Interpretive Data was last revised on 2023. Testing performed by: [address] [address] Non-HDL Cholesterol 169 mg/dL [facility] Comment: Interpretive [...] last revised on 2017. Testing performed by: [address] [address] Chol/HDL ratio 5 [facility] Comment:Testing performed by : [address] [address] Blood 09/29/2024 10:2 8 AM CDT 09/29/2024 12:46 PM CDT Narrative [facility] - 09/29/2024 1:18 PM CDT Has the patient been fasting for 8 hours or more?->Yes us Gaye Us NP LAB BLOOD ORDERABLES Final Resul t [facility] [address] [facility] Department [place] [address] * Thyroid Function [place] (09/29/2024 10:28 AM CDT) [facility] [address] TSH 1.26 0.30 - 4.20 mcIUnit/mL Comment:Testing performed by : [address] [address] Blood 09/29/2024 10:2 8 AM CDT 09/29/2024 12:46 PM CDT Gaye Us COMMUNITY ORGANIZATION WORKER LAB BLOOD ORDERABLES Final Resul t Performing Organization Address City/[facility] Co de Phone Number [address] [place] [address] * Vitamin D 25 hydroxy (09/29/2024 10:28 AM CDT) [facility] [address] Vitamin D 25-OH 37.0 30.0 - 80.0 ng/mL Blood 09/29/2024 10:2 8 AM CDT 09/29/2024 2:18 PM CDT Gaye Us COMMUNITY ORGANIZATION WORKER LAB BLOOD ORDERABLES Final Resul t Performing Organization Address City/[facility] Co de Phone Number [address] [place] [address] * (ABNORMAL) Hemoglobin A1c (09/29/2024 10:28 AM CDT) [facility] [address] Hgb A1C 5.8(H) 4.0 - 5.6 % Comment:Testing performed by : [address] [address] Estimated Average Glucose 120 mg/dL [facility] Comment: The ADA recommends reporting an estimated Average Glucose (eAG) with all Hemoglobin A1c results using the equation derived from a study of 507 normal and diabetic adults. Minority populations were underrepresented and children were not included. (Diabetes Care 31:2624-1262, 2008). The eAG is not equivalent to a fasting glucose. Testing performed by: [address] [address] Blood 09/29/2024 10:2 8 AM CDT 09/29/2024 11:40 AM CDT us Gaye Us NP LAB BLOOD ORDERABLES Final Resul t [facility] [address] [facility] Department [place] [address] documented in this encounter Visit Diagnoses Diagnosis Paresthesia and pain of both upper extremities- Primary Chronic pain of both shoulders Chronic fatigue Other malaise and fatigue HOLDEN on CPAP Morbid obesity with BMI of 45.0-49.9, adult (HCC) Prediabetes Other abnormal glucose Vitamin D deficiency Low mean corpuscular volume (MCV) Screening, lipid Paresthesia and pain of both upper extremities Chronic fatigue Other malaise and fatigue Low mean corpuscular volume (MCV) Prediabetes Other abnormal glucose Screening, lipid Morbid obesity with BMI of 45.0-49.9, adult (HCC) Vitamin D deficiency documented in this encounter Care Teams Food Safety Scientist Relationship Specialty Start Date End Date Gaye Us NP [address] [place] [address] PCP - General Family Medicine 10/04/23 documented as of this encounter
--- OUTSIDE RECORDS SUMMARY | 2024-09-30 22:17 | XMS_ITS | Clinical Summary ---
Author Organization [facility] Address [address] [place] [address] Care Team Providers Care Cantilever Crane Operator Name Role Phone Gaye Us MICHELLE-INSULATION SPRAYER Primary Care Provider [phone] Source Comments [facility],non-owned Affiliates and Associated Physician Practices is amultiple site organization consisting of ambulatory clinics and hospital sitesin [place], [place], [place] and [place]. This disclosure is being madepursuant to the Care Everywhere program and may not contain all information available regarding this patient. Last updated 18.[email or web address] Allergies Active Allergy Reactions Criticality Noted Date [...] age to complete this topic Care Teams Cantilever Crane Operator Relationship Specialty Start Date End Date Gaye Us APRN-LULÚ [address] [place] [phone] PCP - General Nurse Practitioner 12/14/23
--- OUTSIDE RECORDS SUMMARY | 2024-09-30 22:17 | XMS_ITS | Encounter Summary ---
Author Organization [facility] Address [address] [place] [address] Care Team Providers Care Curriculum Manager Name Role Phone Gaye Us NP Primary Care Provider [phone] Encounter Details Date Type Department Care Team (Late st Contact Info) Description 09/29/2024 10:[address] [facility] Building [address] [address] Abnormal menses Social History Tobacco Use Types Packs/Day Years Used Date Smoking Tobacco: Former Cigarettes - 2006 Smokeless Tobacco: Never Comments:1/2 pack daily. [...] as of this encounter Plan of Treatment Pending Results Name Type Priority Associated Diagnoses Date /Time 17-Hydroxyprogesterone Lab Routine Abnormal menses 09/29/2024 10:35 AM CDT documented as of this encounter Procedures Procedure Name Priority Date/Time Associated Diagnosis Comments PROLACTIN Routine 09/29/2024 10:35 AM CDT Abnormal menses DHEA-SULFATE Routine 09/29/2024 10:35 AM CDT Abnormal menses TOTAL TESTOSTERONE Routine 09/29/2024 10 :35 AM CDT Abnormal menses FOLLICLE STIMULATING HORMONE Routine 09/29/2024 10:35 AM CDT Abnormal menses documented in this encounter Results * Total testosterone (09/29/2024 10:35 AM CDT) Testosterone 17.70 8.40 - 48.10 ng/dL Blood 09/29/2024 10:3 5 AM CDT 09/29/2024 2:18 PM CDT Rianna Angulo IGNITION MECHANIC LAB BLOOD ORDERABLES Final R esult Performing Organization Address City/[facility] Co de Phone Number [address] [place] [address] * Prolactin (09/29/2024 10:35 AM CDT) Prolactin 7.1 4.8 - 23.3 ng/mL Comment:Testing performed by : , 1 [facility] [place]., [address] Blood 09/29/2024 10:3 5 AM CDT 09/29/2024 3:04 PM CDT Rianna Angulo IGNITION MECHANIC LAB BLOOD ORDERABLES Final R esult [address] [place] [address] * Follicle stimulating hormone (09/29/2024 10:35 AM CDT) FSH 4.3 1.5 - 12.4 IUnits/L Blood 09/29/2024 10:3 5 AM CDT 09/29/2024 2:18 PM CDT Rianna Angulo IGNITION MECHANIC LAB BLOOD ORDERABLES Final R esult Performing Organization Address City/[facility] Co de Phone Number SHILPI [address] [address] * DHEA-sulfate (09/29/2024 10:35 AM CDT) DHEA-S 134.0 60.9 - 337.0 mcg/dL Comment:Testing performed by : , 1 [facility] [place]., [address] Blood 09/29/2024 10:3 5 AM CDT 09/29/2024 3:03 PM CDT Rianna Angulo IGNITION MECHANIC LAB BLOOD ORDERABLES Final R esult Performing Organization Address City/[facility] de Phone Number [address] [address] documented in this encounter Visit Diagnoses Diagnosis Abnormal menses Unspecified disorder of menstruation and other abnormal bleeding from female genital tract documented in this encounter Care Teams Curriculum Manager Relationship Specialty Start Date End Date Gaye Us NP [address] [place] [address] PCP - General Family Medicine 10/04/23 documented as of this encounter
--- OUTSIDE RECORDS SUMMARY | 2024-09-30 22:17 | XMS_ITS | Clinical Summary ---
Author Organization [facility] Address [address] [place] [address] Care Team Providers Care Mat Maker Name Role Phone Gaye Us NP Primary Care Provider [phone] Allergies Active Allergy Reactions Criticality Noted Date [...] 14 cm water pressure for ongoing symptoms HOLDEN. Her is noticing intermittent snoring under the [...] to dermatology last visit, has appointment at [facility] in November Will monitor for stability Assessment & Plan (11/04/2023 1:25 PM CDT): Chronic, stable, not on medication Referred to dermatology last visit, has appointment at [facility] in November Will monitor for stability [...] last visit to gynecology, has appointment at [facility] Obstetrics and Gynecology in November Assessment & [...] Department Care Team Description 09/30/2024 Results Follow-Up [facility] Obstetrical Gynecology [address] [place] [address] [address] [place] [phone] Nette Wade MD DHEA-sulfate, Follicle stimulating hormone, Prolactin, Total testosterone 09/29/2024 10:25 AM CDT Lab [facility] Building [address] [place] [address] Abnormal menses 09/29/2024 10:10 AM CDT Lab [facility] Building [address] [place] [address] Paresthesia and pain of both upper extremities; Chronic fatigue; Low mean corpuscular volume (MCV); Prediabetes; Screening, lipid; Morbid obesity with BMI of 45.0-49.9, adult (HCC); Vitamin D deficiency 09/29/2024 Orders Only [facility] Obstetrical Gynecology [address] [place] [address] [address] [place] [phone] Jarrett Harris MD Abnormal menses (Primary Dx) 09/29/2024 Telephone [facility] Primary Care at [address] [place] [phone] Gaye Us NP Medical Question/Miscellaneo us 09/28/2024 11:00 AM CDT Office Visit [facility] Pulmonary [address] [place] [address] Maikel Paniagua MD HOLDEN on CPAP 09/28/2024 Telephone [facility] Obstetrical Gynecology [address] [place] [address] [address] [place] [phone] Jarrett Harris MD 09/28/2024 Telephone [facility] [address] [place] [phone] Maikel Paniagua MD Orders Only 09/14/2024 8:30 AM CDT Office Visit [facility] Primary Care at [address] [phone] Gaye Us NP Hypertension, essential (Primary Dx); Chest pain, unspecified type; Gastroesophageal reflux disease, unspecified whether esophagitis present; Morbid obesity with BMI of 45.0-49.9, adult (HCC) 09/12/2024 Telephone [facility] at [address] [phone] Gaye Us NP 08/31/2024 2:30 PM CDT Office Visit [facility] at [address] [phone] Gaye Us NP Paresthesia and pain of both upper extremities (Primary Dx); Chronic pain of both shoulders; Chronic fatigue; HOLDEN on CPAP; Morbid obesity with BMI of 45.0-49.9, adult ([facility]); Prediabetes; Vitamin D deficiency; Low mean corpuscular volume (MCV); Screening, lipid 07/24/2024 Telephone [facility] at [address] [phone] Gaye Us NP 07/12/2024 8:45 AM CDT Office Visit [facility] at [address] [phone] Gaye Us NP Acute bronchitis, unspecified organism (Primary Dx); Acute non-recurrent sinusitis, unspecified location; Morbid obesity with BMI of 45.0-49.9, adult (HCC); Prediabetes; Vitamin D deficiency; Low mean corpuscular volume (MCV); Screening for thyroid disorder; Screening, anemia, deficiency, iron; Screening, lipid 07/12/2024 Telephone [facility] at [address] [phone] Gaye Us NP 07/11/2024 Nurse Triage [facility] [place] [address] [facility] [address] [place] [phone] Gaye Us NP from Last [...] 09/28/2024 11:13 AM CDT Plan of Treatment Health Maintenance Due Date Last Done Comments Meningococcal B Vaccine (1 of 5 - Increased Risk) 1997 DTaP/Tdap/Td Vaccine (1 - Tdap) 1998 Pneumococcal vaccine <65 (1 of 2 - PCV) 2006 Covid-19 Vaccine (3 - season) 2023 08/27/2020, 07/30/2020 Cervical Cancer Screening 12/05/2024 12/06/2023, 03/2024 Regular Well Visit/Exam 18-64 12/05/2024 12/06/2023, 11/04/2023 Influenza Vaccine (Season Ended) 2024 Depression Screening 09/14/2025 09/14/2024, 11/04/2023, 11/04/2023, Additional history exists Hepatitis B Screening Completed 10/29/2023 Hepatitis C [...] - 23.3 ng/mL Comment:Testing performed by : [facility], [address] [facility], [place]., [address] Blood 09/29/2024 10:3 5 AM CDT 09/29/2024 3:04 PM CDT Rianna Angulo DIE HARDENER LAB BLOOD ORDERABLES Final R esult Performing Organization Address City/[facility] Co de Phone Number [address] [place] [address] * DHEA-sulfate (09/29/2024 10:35 AM CDT) DHEA-S 134.0 60.9 - 337.0 mcg/dL Comment:Testing performed by : [facility], [address] [place]., [address] Blood 09/29/2024 10:3 5 AM CDT 09/29/2024 3:03 PM CDT Rianna Angulo DIE HARDENER LAB BLOOD ORDERABLES Final R esult Performing Organization Address [facility] Co de Phone Number [place] [place] [address] * Total testosterone (09/29/2024 10:35 AM CDT) Testosterone 17.70 8.40 - 48.10 ng/dL Blood 09/29/2024 10:3 5 AM CDT 09/29/2024 2:18 PM CDT Rianna Angulo DIE HARDENER LAB BLOOD ORDERABLES Final R esult Performing Organization Address [facility] Co de Phone Number [address] [place] [address] * Follicle stimulating hormone (09/29/2024 10:35 AM CDT) FSH 4.3 1.5 - 12.4 IUnits/L Blood 09/29/2024 10:3 5 AM CDT 09/29/2024 2:18 PM CDT Rianna Angulo DIE HARDENER LAB BLOOD ORDERABLES Final R esult Performing Organization Address [facility] Co de Phone Number [address] [place] [place] [address] * eGFR (09/29/2024 10:28 AM CDT) eGFR >90 >=60 mL/min/1. 73 m2 Comment: [...] of Race in Diagnosing Kidney Disease, JASN 2020). The CKD-EPI equation should not be used for patients with unstable renal function and has not been validated in children and those over 70. Current interpretive data was last reviewed 2021. Testing performed by: [address] [address] Blood 09/29/2024 10:2 8 AM CDT 09/29/2024 12:46 PM CDT us Gaye Us NP LAB BLOOD ORDERABLES Final Resul t [facility] [address] [facility] [place] [address] * Differential, auto (09/29/2024 10:28 AM CDT) Neutrophil abs 4.44 1.50 - 6.50 K/cumm Comment:Testing performed by : [address] [address] Imm gran abs 0.03 0.00 - 0.10 K/cumm SHILPI MOSLEY Comment:Testing performed by : [address] [address] Lymphocyte abs 2.21 0.80 - 3.30 K/cumm SHILPI Comment:Testing performed by : [address], [place]., [address] Monocyte abs 0.48 0.20 - 0.80 K/cumm SHILPI Comment:Testing performed by : [address], [place]., [address] Eosinophil abs 0.19 0.00 - 0.50 K/cumm [facility] Comment:Testing performed by : [address], [place]., [address] Basophil abs 0.06 0.00 - 0.10 K/cumm [facility] Comment:Testing performed by : [address] [address] Neutrophil pct 59.9 % [facility] Comment: Interpretive Data Percent cell count reference ranges are not reported, since discordance with absolute values may lead to misinterpretation of CBC data. Current Interpretive Data was last revised on 2017. Testing performed by: [address] [address] Imm gran pct 0.4 % [facility] Comment: Interpretive Data Percent cell count reference ranges are not reported, since discordance with absolute values may lead to misinterpretation of CBC data. Current Interpretive Data was last revised on 2017. Testing performed by: [address] [address] Lymphocyte pct 29.8 % [facility] Comment: Interpretive Data Percent cell count reference ranges are not reported, since discordance with absolute values may lead to misinterpretation of CBC data. Current Interpretive Data was last revised on 2017. Testing performed by: [address] [address] Monocyte pct 6.5 % [facility] Comment: Interpretive Data Percent cell count reference ranges are not reported, since discordance with absolute values may lead to misinterpretation of CBC data. Current Interpretive Data was last revised on 2017. Testing performed by: [address] [address] Eosinophil pct 2.6 % [facility] Comment: Interpretive Data Percent cell count reference ranges are not reported, since discordance with absolute values may lead to misinterpretation of CBC data. Current Interpretive Data was last revised on 2017. Testing performed by: [address] [address] Basophil pct 0.8 % SHILPI Comment: Interpretive Data Percent cell count reference ranges are not reported, since discordance with absolute values may lead to misinterpretation of CBC data. Current Interpretive Data was last revised on 2017. Testing performed by: [address] [address] Blood 09/29/2024 10:2 8 AM CDT 09/29/2024 11:40 AM CDT Gaye Us NP LAB BLOOD ORDERABLES Final Resul t Performing Organization Address City/[facility] Co de Phone Number [address] [place] [address] * Thyroid Function Dorado (09/29/2024 10:28 AM CDT) Pathologist [facility] TSH 1.26 0.30 - 4.20 mcIUnit/mL Comment:Testing performed by : [address] [address] Blood 09/29/2024 10:2 8 AM CDT 09/29/2024 12:46 PM CDT Gaye Us NP LAB BLOOD ORDERABLES Final Resul t Performing Organization Address City/[facility]/ZIP Co de Phone Number [address] [place] [address] * (ABNORMAL) CBC with auto differential (09/29/2024 10:28 AM CDT) WBC 7.41 3.80 - 9.90 K/cumm Comment:Testing performed by : [address] [address] Hgb 12.5 11.9 - 15.5 g/dL SHILPI MOSLEY Comment:Testing performed by : [address] [address] Hct 38.8 35.6 - 45.5 % SHILPI Comment:Testing performed by : [address], [address] Plt 285 150 - 400 K/cumm SHILPI Comment:Testing performed by : [address], [address] MPV 12.1 9.1 - 12.3 fL SHILPI Comment:Testing performed by : [address], [address] RBC 5.01 3.90 - 5.20 M/cumm SHILPI Comment:Testing performed by : [address], [address] MCV 77.4(L) 81.3 - 96.4 fL SHILPI Comment:Testing performed by : [address], [address] MCH 25.0(L) 27.1 - 33.3 pg SHILPI Comment:Testing performed by : [address], [address] MCHC 32.2(L) 32.3 - 35.7 g/dL SHILPI Comment:Testing performed by : [address], [address] RDW CV 13.7 11.1 - 14.9 % SHILPI Comment:Testing performed by : [address], [address] RDW SD 38.3 35.7 - 48.1 fL SHILPI Comment:Testing performed by : [address], [address] NRBC abs 0.00 0.00 - 0.01 K/cumm SHILPI Comment:Testing performed by : [address], [address] Blood 09/29/2024 10:2 8 AM CDT 09/29/2024 11:40 AM CDT us Gaye Us NP LAB BLOOD ORDERABLES Final Resul t SHILPI [facility] [place] [address] * Vitamin D 25 hydroxy (09/29/2024 10:28 AM CDT) [facility] Vitamin D 25-OH 37.0 30.0 - 80.0 ng/mL Blood 09/29/2024 10:2 8 AM CDT 09/29/2024 2:18 PM CDT Gaye Us NP LAB BLOOD ORDERABLES Final Resul t Performing Organization Address City/[facility] Co de Phone Number [place] [address] * (ABNORMAL) Hemoglobin A1c (09/29/2024 10:28 AM CDT) [facility] Hgb A1C 5.8(H) 4.0 - 5.6 % Comment:Testing performed by : [address] [address] Estimated Average Glucose 120 mg/dL DALLASJEANETTE Comment: The ADA recommends reporting an estimated Average Glucose (eAG) with all Hemoglobin A1c results using the equation derived from a study of 507 normal and diabetic adults. Minority populations were underrepresented and children were not included. (Diabetes Care 31:5742-5509, 2008). The eAG is not equivalent to a fasting glucose. Testing performed by: [address] [address] Blood 09/29/2024 10:2 8 AM CDT 09/29/2024 11:40 AM CDT us Gaye Us NP LAB BLOOD ORDERABLES Final Resul t [place] [address] [place] [address] * Vitamin B12 (09/29/2024 10:28 AM CDT) [facility] Vitamin B12 616 230 - 1,250 pg/mL Comment:Testing performed by : [address] [address] Blood 09/29/2024 10:2 8 AM CDT 09/29/2024 12:46 PM CDT us Gaye Us NP LAB BLOOD ORDERABLES Final Resul t SHILPI [address] [facility] [place] [address] * (ABNORMAL) Lipid panel (09/29/2024 10:28 AM [...] last revised on 2017. Testing performed by: [address] [address] Triglycerides 170(H) <=149 mg/dL SHILPI Comment: Interpretive [...] last revised on 2017. Testing performed by: [address] [address] HDL 42 >=40 mg/dL SHILPI Comment: Interpretive [...] last revised on 2017. Testing performed by: [address] [address] LDL, calculated 138(H) <=129 mg/dL SHILPI MOSLEY Comment: Interpretive Data Ages < or = 19 years Acceptable: <110 mg/dL Borderline high: 110-129 mg/dL High: >or= 130 mg/dL Ages > or = 20 years Optimal: <100 mg/dL Near optimal: 100-129 mg/dL Borderline high: 130-159 mg/dL High: >160 mg/dL Calculated using the Stefano LDL-C estimating equation. This equation was implemented on 2023. Prior to this date LDL-C was estimated using the Friedewald equation. Literature References: 1. Expert Panel on Integrated Guidelines for Cardiovascular Health and Risk Reduction in Children and Adolescents. Pediatrics 2011;128:S213 2. NCEP Expert Panel. Circulation 2004;110:227 3. Stefano Pizarro al. KRISTAL Cardiol. 2019August 24;5(5):540-548. doi: 10.1001/jamacardio.2020.0013 Current Interpretive Data was last revised on 2023. Testing performed by: [address] [address] Non-HDL Cholesterol 169 mg/dL SHILPI MOSLEY Comment: Interpretive Data Ages < or = [...] last revised on 2017. Testing performed by: [address] [address] Chol/HDL ratio 5 SHILPI Comment:Testing performed by : [address] [address] Blood 09/29/2024 10:2 8 AM CDT 09/29/2024 12:46 PM CDT Narrative SHILPI - 09/29/2024 1:18 PM CDT Has the patient been fasting for 8 hours or more?->Yes us Gaye Us DIE HARDENER LAB BLOOD ORDERABLES Final Resul t SHILPI [address] [facility] Department [place] [address] * (ABNORMAL) Comprehensive metabolic panel (09/29/2024 10:28 AM CDT) Sodium 141 135 - 145 mmol/L Comment:Testing performed by : [address] [address] Potassium, pl 3.7 3.3 - 4.9 mmol/L SHILPI Comment:Testing performed by : [address] [address] Chloride 104 97 - 110 mmol/L SHILPI Comment:Testing performed by : [address] [address] CO2 24 22 - 32 mmol/L SHILPI Comment:Testing performed by : [address] [address] Anion gap 13 2 - 15 mmol/L SHILPI Comment:Testing performed by : [address] [address] BUN 8 6 - 25 mg/dL SHILPI Comment:Testing performed by : [address] [address] Creatinine 0.60 0.60 - 1.10 mg/dL SHILPI Comment:Testing performed by : [address] [address] Glucose 117 70 - 199 mg/dL SHILPI Comment: Interpretive Data Fasting glucose >/= 126 [...] was last revised 2022. Testing performed by: [address] [address] Calcium 10.0 8.5 - 10.3 mg/dL SHILPI Comment:Testing performed by : [address] [address] Bilirubin, total 0.5 0.1 - 1.2 mg/dL SHILPI Comment:Testing performed by : [address] [address] Protein, pl 7.8 6.5 - 8.5 g/dL SHILPI Comment:Testing performed by : [address] [address] Albumin 4.2 3.5 - 5.0 g/dL SHILPI Comment:Testing performed by : [address] [address] Alk phos 87 40 - 130 Units/L SHILPI Comment:Testing performed by : [address] [address] ALT 85(H) 7 - 45 Units/L SHILPI Comment:Testing performed by : [address] [address] AST 60(H) 10 - 45 Units/L SHILPI Comment:Testing performed by : [address] [address] Blood 09/29/2024 10:2 8 AM CDT 09/29/2024 12:46 PM CDT Narrative SHILPI - 09/29/2024 1:18 PM CDT Has the patient fasted?->Yes Gaye Us NP LAB BLOOD ORDERABLES Final Resul t [facility] [address] [facility] [place] [address] * POC Influenza A/B, COVID-19 antigen (07/12/2024 9:00 AM CDT) Pathologist [facility] Influenza A Ag, POC Negative Negative [facility] PCP RACINE 210 Influenza B Ag, POC Negative Negative [facility] PCP THALIA 210 COVID-19 Ag POC Presumptive Negative Presumptive Negative, Invalid [facility] PCP THALIA 210 Comment:Lot [id number] Nasal 07/12/2024 9:00 AM CDT Gaye Us NP POINT OF CARE TEST ORDERABLES Fi nal Result Performing Organization Address City/[facility]/ZIP Co de Phone Number [facility] PCP RACINE [address] * High Risk HPV DNA Detection with Genotyping (Molecular component) (12/06/2023 1:34 PM CDT) [facility] HPV HR 16 Not Detected Not Detected [facility] Comment:Testing performed by : [facility], [address] [place] [address] HPV HR 18 Not Detected Not Detected SHILPI Comment:Testing performed by : [facility], [address] [place]., [address] HPV HR Non 16/18 Not Detected Not [...] this test have been verified by the [facility] Molecular Infectious Disease laboratory. Correlate with separately reported cytology results, as applicable. Interpretive data last revised 22 Testing performed by: [facility], [address] [place]., [address] Endocervical 12/06/2023 1:34 PM CDT 12/07/2023 11:16 AM CDT [facility] SHILPI [facility] 12/08/2023 1:17 AM CDT Clinical history and diagnosis->2019 wnl per pt ([place]) Number of vials->1 Testing type->Screening Last menstrual period (date if known)->11/22/23 Rianna nAgulo DIE HARDENER LAB BODY FLUIDS AND STOOLS O RDERABLES Final Result SHILPI [address] [facility] [place] [address] [facility] * Hepatitis C antibody Blood (10/29/2023 11:28 [...] ROSA ISELA Edited Result - Final SHILPI MOSLEY [address] [facility] [place] [address] from Last 3 Months or Most Recently Relevant to Health Maintenance Insurance [facility] [place] Care Teams Mat Maker Relationship Specialty Start Date End Date Gaye Us NP [address] [place] [id number] PCP - General Family Medicine 10/04/23
--- OUTSIDE RECORDS SUMMARY | 2024-09-30 22:17 | XMS_ITS | Encounter Summary ---
Author Organization [facility] Healthcare Address [address] [place] [address] Care Team Providers Care Carbide Powder Processor Name Role Phone Gaye Us NP Primary Care Provider [phone] Encounter Details Date Type Department Care Team (Late st Contact Info) Description 09/29/2024 10:10 AM CDT Lab [facility] Building [address] [address] Paresthesia and pain of both upper extremities; Chronic fatigue; Low mean corpuscular volume (MCV); Prediabetes; Screening, lipid; Morbid obesity with BMI of 45.0-49.9, adult (HCC); Vitamin D deficiency Social History Tobacco Use Types Packs/Day Years Used Date Smoking Tobacco: Former Cigarettes 2 - 2006 Smokeless Tobacco: Never Comments:1/2 pack [...] on file documented as of this encounter Procedures Procedure Name Priority Date/Time Associated Diagnosis Comments EGFR Routine 09/29/2024 10:28 AM CDT Prediabetes DIFFERENTIAL AUTO Routine 09/29/2024 10: 28 AM CDT Chronic fatigue Low mean corpuscular volume (MCV) THYROID FUNCTION CASCADE Routine 09/29/2024 10:28 AM CDT Morbid obesity with BMI of 45.0-49.9, adult (HCC) Chronic fatigue CBC WITH AUTO DIFFERENTIAL Routine 09/29/2024 10:28 AM CDT Chronic fatigue Low mean corpuscular volume (MCV) VITAMIN D 25 HYDROXY Routine 09/29/2024 10:28 AM CDT Vitamin D deficiency HEMOGLOBIN A1C Routine 09/29/2024 10:28 AM CDT Prediabetes VITAMIN B12 Routine 09/29/2024 10:28 AM CDT Paresthesia and pain of both upper extremities LIPID PANEL Routine 09/29/2024 10:28 AM CDT Screening, lipid COMPREHENSIVE METABOLIC PANEL Routine 09/29/2024 10:28 AM CDT Prediabetes documented in this encounter Results * eGFR (09/29/2024 10:28 AM CDT) eGFR [...] was last reviewed 2021. Testing performed by: [address] [address] Blood 09/29/2024 10:2 8 AM CDT 09/29/2024 12:46 PM CDT us Gaye Us NP LAB BLOOD ORDERABLES Final Resul t [facility] Department [place] [address] * Differential, auto (09/29/2024 10:28 AM CDT) Neutrophil abs 4.44 1.50 - 6.50 K/cumm Comment:Testing performed by : [address] [address] Imm gran abs 0.03 0.00 - 0.10 K/cumm [facility] Comment:Testing performed by : [address] [address] Lymphocyte abs 2.21 0.80 - 3.30 K/cumm [facility] Comment:Testing performed by : [address] [address] Monocyte abs 0.48 0.20 - 0.80 K/cumm [facility] Comment:Testing performed by : [address] [address] Eosinophil abs 0.19 0.00 - 0.50 K/cumm [facility] Comment:Testing performed by : [address] [address] Basophil abs 0.06 0.00 - 0.10 K/cumm [facility] Comment:Testing performed by : [address] [place]., [address] Neutrophil pct 59.9 % CERNER Comment: Interpretive Data Percent cell count reference ranges are not reported, since discordance with absolute values may lead to misinterpretation of CBC data. Current Interpretive Data was last revised on 2017. Testing performed by: [address] [address] Imm gran pct 0.4 % CERNER Comment: Interpretive Data Percent cell count reference ranges are not reported, since discordance with absolute values may lead to misinterpretation of CBC data. Current Interpretive Data was last revised on 2017. Testing performed by: [address] [address] Lymphocyte pct 29.8 % [facility] Comment: Interpretive Data Percent cell count reference ranges are not reported, since discordance with absolute values may lead to misinterpretation of CBC data. Current Interpretive Data was last revised on 2017. Testing performed by: [address] [address] Monocyte pct 6.5 % CERNER Comment: Interpretive Data Percent cell count reference ranges are not reported, since discordance with absolute values may lead to misinterpretation of CBC data. Current Interpretive Data was last revised on 2017. Testing performed by: [address] [address] Eosinophil pct 2.6 % CERNER Comment: Interpretive Data Percent cell count reference ranges are not reported, since discordance with absolute values may lead to misinterpretation of CBC data. Current Interpretive Data was last revised on 2017. Testing performed by: [address] [address] Basophil pct 0.8 % CERNER Comment: Interpretive Data Percent cell count reference ranges are not reported, since discordance with absolute values may lead to misinterpretation of CBC data. Current Interpretive Data was last revised on 2017. Testing performed by: [address] [address] Blood 09/29/2024 10:2 8 AM CDT 09/29/2024 11:40 AM CDT Gaye Us NP LAB BLOOD ORDERABLES Final Resul t Performing Organization Address City/[facility] Co de Phone Number [place] [place] [address] * (ABNORMAL) Hemoglobin A1c (09/29/2024 10:28 AM CDT) Hgb A1C 5.8(H) 4.0 - 5.6 % Comment:Testing performed by : [facility], [address] [place] [address]., [address] Estimated Average Glucose 120 mg/dL [facility] Comment: The ADA recommends reporting an estimated Average Glucose (eAG) with all Hemoglobin A1c results using the equation derived from a study of 507 normal and diabetic adults. Minority populations were underrepresented and children were not included. (Diabetes Care 31:9416-7679, 2008). The eAG is not equivalent to a fasting glucose. Testing performed by: [address] [address] Blood 09/29/2024 10:2 8 AM CDT 09/29/2024 11:40 AM CDT Gaye Us NP LAB BLOOD ORDERABLES Final Resul t Performing Organization Address [facility] Co de Phone Number [place] [place] [address] * Vitamin D 25 hydroxy (09/29/2024 10:28 AM CDT) Pathologist [facility] Vitamin D 25-OH 37.0 30.0 - 80.0 ng/mL Blood 09/29/2024 10:2 8 AM CDT 09/29/2024 2:18 PM CDT Gaye Us NP LAB BLOOD ORDERABLES Final Resul t Performing Organization Address City/[facility] Co de Phone Number [place] [phone] [facility] [place] [address] * Thyroid Function [place] (09/29/2024 10:28 AM CDT) TSH 1.26 0.30 - 4.20 mcIUnit/mL Comment:Testing performed by : [address] [address] Blood 09/29/2024 10:2 8 AM CDT 09/29/2024 12:46 PM CDT us Gaye Us NP LAB BLOOD ORDERABLES Final Resul t [facility] [address] [facility] Department [place] [address] * (ABNORMAL) Lipid panel (09/29/2024 10:28 AM [...] last revised on 2017. Testing performed by: [address] [address] Triglycerides 170(H) <=149 mg/dL [facility] Comment: Interpretive [...] last revised on 2017. Testing performed by: [address] [address] HDL 42 >=40 mg/dL [facility] Comment: Interpretive [...] last revised on 2017. Testing performed by: [address] [address] LDL, calculated 138(H) <=129 mg/dL [facility] Comment: [...] 3. Stefano South et al. KRISTAL Cardiol. 2020 August 24;5(5):540-548. doi: 10.1001/[email or web address].2020.0013 Current Interpretive Data was last revised on 2023. Testing performed by: [address] [address] Non-HDL Cholesterol 169 mg/dL [facility] Comment: Interpretive [...] last revised on 2017. Testing performed by: [address] [address] Chol/HDL ratio 5 [facility] Comment:Testing performed by : [address] [address] Blood 09/29/2024 10:2 8 AM CDT 09/29/2024 12:46 PM CDT Narrative [facility] - 09/29/2024 1:18 PM CDT Has the patient been fasting for 8 hours or more?->Yes us Gaye Us NP LAB BLOOD ORDERABLES Final Resul t [facility] [address] [facility] Department [place] [address] * (ABNORMAL) Comprehensive metabolic panel (09/29/2024 10:28 AM CDT) Sodium 141 135 - 145 mmol/L Comment:Testing performed by : [address] [address] Potassium, pl 3.7 3.3 - 4.9 mmol/L [facility] Comment:Testing performed by : [address] [address] Chloride 104 97 - 110 mmol/L [facility] Comment:Testing performed by : [address] [address] CO2 24 22 - 32 mmol/L [facility] Comment:Testing performed by : [address] [address] Anion gap 13 2 - 15 mmol/L [facility] Comment:Testing performed by : [address] [address] BUN 8 6 - 25 mg/dL [facility] Comment:Testing performed by : [address] [address] Creatinine 0.60 0.60 - 1.10 mg/dL [facility] Comment:Testing performed by : [address] [address] Glucose 117 70 - 199 mg/dL [facility] [...] was last revised 2022. Testing performed by: [address] [address] Calcium 10.0 8.5 - 10.3 mg/dL [facility] Comment:Testing performed by : [address] [address] Bilirubin, total 0.5 0.1 - 1.2 mg/dL [facility] Comment:Testing performed by : [address] [address] Protein, pl 7.8 6.5 - 8.5 g/dL [facility] Comment:Testing performed by : [address] [address] Albumin 4.2 3.5 - 5.0 g/dL [facility] Comment:Testing performed by : [address] [address] Alk phos 87 40 - 130 Units/L [facility] Comment:Testing performed by : [address] [address] ALT 85(H) 7 - 45 Units/L [facility] Comment:Testing performed by : [address] [address] AST 60(H) 10 - 45 Units/L [facility] Comment:Testing performed by : [address] [address] Blood 09/29/2024 10:2 8 AM CDT 09/29/2024 12:46 PM CDT Narrative [facility] MOSLEY - 09/29/2024 1:18 PM CDT Has the patient fasted?->Yes us Gaye Us PURCHASING ADMINISTRATIVE ASSISTANT LAB BLOOD ORDERABLES Final Resul t [facility] [address] [facility] Department [place] [address] * (ABNORMAL) CBC with auto differential (09/29/2024 10:28 AM CDT) WBC 7.41 3.80 - 9.90 K/cumm Comment:Testing performed by : [address] [address] Hgb 12.5 11.9 - 15.5 g/dL [facility] Comment:Testing performed by : [address] [address] Hct 38.8 35.6 - 45.5 % [facility] Comment:Testing performed by : [address] [address] Plt 285 150 - 400 K/cumm [facility] Comment:Testing performed by : [address] [address] MPV 12.1 9.1 - 12.3 fL [facility] Comment:Testing performed by : [address] [address] RBC 5.01 3.90 - 5.20 M/cumm [facility] Comment:Testing performed by : [address] [address] MCV 77.4(L) 81.3 - 96.4 fL [facility] Comment:Testing performed by : [address] [address] MCH 25.0(L) 27.1 - 33.3 pg [facility] Comment:Testing performed by : [address] [address] MCHC 32.2(L) 32.3 - 35.7 g/dL [facility] [place] Comment:Testing performed by : [address], [address] RDW CV 13.7 11.1 - 14.9 % [facility] [place] Comment:Testing performed by : [address] [address] RDW SD 38.3 35.7 - 48.1 fL [facility] [place] Comment:Testing performed by : [address] [address] NRBC abs 0.00 0.00 - 0.01 K/cumm [facility] [place] Comment:Testing performed by : [address] [address] Blood 09/29/2024 10:2 8 AM CDT 09/29/2024 11:40 AM CDT us Gaye Us NP LAB BLOOD ORDERABLES Final Resul t Performing Organization Address City/[facility] Co de Phone Number [facility] [address] [place] [address] * Vitamin B12 (09/29/2024 10:28 AM CDT) [facility] Vitamin B12 616 230 - 1,250 pg/mL Comment:Testing performed by : [address], [address] Blood 09/29/2024 10:2 8 AM CDT 09/29/2024 12:46 PM CDT us Gaye Us NP LAB BLOOD ORDERABLES Final Resul t [place] [place] [address] documented in this encounter Visit Diagnoses Diagnosis Paresthesia and pain of both upper extremities Chronic fatigue Other malaise and fatigue Low mean corpuscular volume (MCV) Prediabetes Other abnormal glucose Screening, lipid Morbid obesity with BMI of 45.0-49.9, adult (HCC) Vitamin D deficiency documented in this encounter Care Teams Carbide Powder Processor Relationship Specialty Start Date End Date Gaye Us NP [address] [place] [address] PCP - General Family Medicine 10/04/23 documented as of this encounter
[2024-09-30 22:19] VITALS: BP 144/71; PULSE 89; RESP 18; TEMP 36.3; O2SAT 100
--- OUTSIDE RECORDS SUMMARY | 2024-09-30 23:10 | XMS_ITS | Encounter Summary ---
Author Organization [facility] Healthcare Address [address] [place] [address] Care Team Providers Care Buckle Attaching Machine Operator Name Role Phone Gaye Us NP Primary Care Provider [phone] Encounter Details Date Type Department Care Team (Late st Contact Info) Description 09/29/2024 10:25 AM CDT Lab [facility] Building [address] [address] Abnormal menses Social History Tobacco Use Types [...] CDT 09/29/2024 2:18 PM CDT Rianna Angulo BENEFITS PROCESSOR LAB BLOOD ORDERABLES Final R esult Performing Organization Address City/[facility] Co de Phone Number [address] [place] [address] * Prolactin (09/29/2024 10:35 AM CDT) Prolactin 7.1 4.8 - 23.3 ng/mL Comment:Testing performed by : [facility], [address] [place]., [address] Blood 09/29/2024 10:3 5 AM CDT 09/29/2024 3:04 PM CDT Rianna Angulo BENEFITS PROCESSOR LAB BLOOD ORDERABLES Final R esult [address] [place] [address] * Follicle stimulating hormone (09/29/2024 10:35 AM CDT) FSH 4.3 1.5 - 12.4 IUnits/L Blood 09/29/2024 10:3 5 AM CDT 09/29/2024 2:18 PM CDT Rianna Angulo BENEFITS PROCESSOR LAB BLOOD ORDERABLES Final R esult Performing Organization Address City/[facility] Co de Phone Number [facility] [address] [address] * DHEA-sulfate (09/29/2024 10:35 AM CDT) DHEA-S 134.0 60.9 - 337.0 mcg/dL Comment:Testing performed by : [facility], [address] [place]., [address] Blood 09/29/2024 10:3 5 AM CDT 09/29/2024 3:03 PM CDT Rianna Angulo BENEFITS PROCESSOR LAB BLOOD ORDERABLES Final R esult Performing Organization Address City/[facility] de Phone Number [address] [address] documented in this encounter Visit Diagnoses Diagnosis Abnormal menses Unspecified disorder of menstruation and other abnormal bleeding from female genital tract documented in this encounter Care Teams Buckle Attaching Machine Operator Relationship Specialty Start Date End Date Gaye Us NP [address] [place] [address] PCP - General Family Medicine 10/04/23 documented as of this encounter
--- OUTSIDE RECORDS SUMMARY | 2024-09-30 23:10 | XMS_ITS | Encounter Summary ---
Author Organization [facility] Healthcare Address [address] [place] [address] Care Team Providers Care Bait Painter Name Role Phone Gaye Us NP Primary Care Provider [phone] Encounter Details Date Type Department Care Team (Late st Contact Info) Description 09/28/2024 Telephone [facility] Obstetrical Gynecology [address] [phone] Jarrett Harris MD [address] [address] Social History Tobacco Use Types [...] on filedocumented in this encounter Care Teams Bait Painter Relationship Specialty Start Date End Date Gaye Us NP [address] [place] [address] PCP - General Family Medicine 10/04/23 documented as of this encounter
--- OUTSIDE RECORDS SUMMARY | 2024-09-30 23:10 | XMS_ITS | Clinical Summary ---
[facility] C Address [address] [place] [address] Care Team Providers Care Television Camera Operator Name Role Phone Gaye Us NP Primary Care Provider [phone] Allergies Active Allergy Reactions Criticality Noted Date [...] to dermatology last visit, has appointment at [facility] in November Will monitor for stability Assessment & Plan (11/04/2023 1:25 PM CDT): Chronic, stable, not on medication Referred to dermatology last visit, has appointment at [facility] in November Will monitor for stability [...] last visit to gynecology, has appointment at [facility] Obstetrics and Gynecology in November [...] Department Care Team Description 09/30/2024 Results Follow-Up [facility] Obstetrical Gynecology [address] [place] [address] [address] [place] [phone] Nette Wade MD DHEA-sulfate, Follicle stimulating hormone, Prolactin, Total testosterone 09/29/2024 10:25 AM CDT Lab [facility] Building [address] [place] [address] Abnormal menses 09/29/2024 10:10 AM CDT Lab [facility] Building [address] [place] [address] Paresthesia and pain of both upper extremities; Chronic fatigue; Low mean corpuscular volume (MCV); Prediabetes; Screening, lipid; Morbid obesity with BMI of 45.0-49.9, adult (HCC); Vitamin D deficiency 09/29/2024 Orders Only [facility] Obstetrical Gynecology [address] [place] [address] [address] [place] [phone] Jarrett Harris MD Abnormal menses (Primary Dx) 09/29/2024 Telephone [facility] Primary Care at [address] [place] [phone] Gaye Us NP Medical Question/Miscellaneo us 09/28/2024 11:00 AM CDT Office Visit [facility] Pulmonary [address] [place] [phone] Maikel Paniagua MD HOLDEN on CPAP 09/28/2024 Telephone [facility] Obstetrical Gynecology [address] [place] [address] [address] [place] [phone] Jarrett Harris MD 09/28/2024 Telephone [facility] Pulmonary [address] [place] [phone] Maikel Paniagua MD Orders Only 09/14/2024 8:30 AM CDT Office Visit [facility] Primary Care at [address] [phone] Gaye Us NP Hypertension, essential (Primary Dx); Chest pain, unspecified type; Gastroesophageal reflux disease, unspecified whether esophagitis present; Morbid obesity with BMI of 45.0-49.9, adult (HCC) 09/12/2024 Telephone [facility] Primary Care at [address] [phone] Gaye Us NP 08/31/2024 2:30 PM CDT Office Visit [facility] Primary Care at [address] [phone] Gaye Us NP Paresthesia and pain of both upper extremities (Primary Dx); Chronic pain of both shoulders; Chronic fatigue; HOLDEN on CPAP; Morbid obesity with BMI of 45.0-49.9, adult ([facility]); Prediabetes; Vitamin D deficiency; Low mean corpuscular volume (MCV); Screening, lipid 07/24/2024 Telephone [facility] Primary Care at [address] [phone] Gaye Us NP 07/12/2024 8:45 AM CDT Office Visit [facility] Primary Care at [address] [phone] Gaye Us NP Acute bronchitis, unspecified organism (Primary Dx); Acute non-recurrent sinusitis, unspecified location; Morbid obesity with BMI of 45.0-49.9, adult (HCC); Prediabetes; Vitamin D deficiency; Low mean corpuscular volume (MCV); Screening for thyroid disorder; Screening, anemia, deficiency, iron; Screening, lipid 07/12/2024 Telephone [facility] Primary Care at [address] [phone] Gaye Us NP 07/11/2024 Nurse Triage [facility] [place] [address] [place] [phone] Gaye Us NP from Last [...] - 23.3 ng/mL Comment:Testing performed by : [facility], [address] [facility], [place]., [address] Blood 09/29/2024 10:3 5 AM CDT 09/29/2024 3:04 PM CDT Rianna Angulo CONE FORMER LAB BLOOD ORDERABLES Final R esult Performing Organization Address City/[facility] [[email or web address]] Co de Phone Number [address] [place] [address] * DHEA-sulfate (09/29/2024 10:35 AM CDT) DHEA-S 134.0 60.9 - 337.0 mcg/dL Comment:Testing performed by : [facility], 1 [place]., [address] Blood 09/29/2024 10:3 5 AM CDT 09/29/2024 3:03 PM CDT Rianna Angulo CONE FORMER LAB BLOOD ORDERABLES Final R esult Performing Organization Address [facility] [[email or web address]] Co de Phone Number [place] [place] [address] * Total testosterone (09/29/2024 10:35 AM CDT) Testosterone 17.70 8.40 - 48.10 ng/dL Blood 09/29/2024 10:3 5 AM CDT 09/29/2024 2:18 PM CDT Rianna Angulo CONE FORMER LAB BLOOD ORDERABLES Final R esult Performing Organization Address [facility] [[email or web address]] Co de Phone Number [address] [place] [address] * Follicle stimulating hormone (09/29/2024 10:35 AM CDT) FSH 4.3 1.5 - 12.4 IUnits/L Blood 09/29/2024 10:3 5 AM CDT 09/29/2024 2:18 PM CDT Rianna Angulo CONE FORMER LAB BLOOD ORDERABLES Final R esult Performing Organization Address [facility] [[email or web address]] Co de Phone Number [address] [place] [address] * eGFR (09/29/2024 10:28 AM CDT) eGFR [...] was last reviewed 2021. Testing performed by: [address] [address] Blood 09/29/2024 10:2 8 AM CDT 09/29/2024 12:46 PM CDT us Gaye Us NP LAB BLOOD ORDERABLES Final Resul t [facility] [address] [facility] Department [place] [address] * Differential, auto (09/29/2024 10:28 AM CDT) Neutrophil abs 4.44 1.50 - 6.50 K/cumm Comment:Testing performed by : [address] [address] Imm gran abs 0.03 0.00 - 0.10 K/cumm SHILPI MOSLEY Comment:Testing performed by : [address] [address] Lymphocyte abs 2.21 0.80 - 3.30 K/cumm SHILPI Comment:Testing performed by : [address], [place]., [address] Monocyte abs 0.48 0.20 - 0.80 K/cumm [facility]PI Comment:Testing performed by : [address], [place]., [address] Eosinophil abs 0.19 0.00 - 0.50 K/cumm [facility] Comment:Testing performed by : [address], [place]., [address] Basophil abs 0.06 0.00 - 0.10 K/cumm [facility] Comment:Testing performed by : [address] [address] Neutrophil pct 59.9 % [facility] Comment: Interpretive Data Percent cell count reference ranges are not reported, since discordance with absolute values may lead to misinterpretation of CBC data. Current Interpretive Data was last revised on 2017. Testing performed by: [address] [address] Imm gran pct 0.4 % [facility] Comment: Interpretive Data Percent cell count reference ranges are not reported, since discordance with absolute values may lead to misinterpretation of CBC data. Current Interpretive Data was last revised on 2017. Testing performed by: [address] [address] Lymphocyte pct 29.8 % [facility] Comment: Interpretive Data Percent cell count reference ranges are not reported, since discordance with absolute values may lead to misinterpretation of CBC data. Current Interpretive Data was last revised on 2017. Testing performed by: [address] [address] Monocyte pct 6.5 % [facility] Comment: Interpretive Data Percent cell count reference ranges are not reported, since discordance with absolute values may lead to misinterpretation of CBC data. Current Interpretive Data was last revised on 2017. Testing performed by: [address] [address] Eosinophil pct 2.6 % [facility] Comment: Interpretive Data Percent cell count reference ranges are not reported, since discordance with absolute values may lead to misinterpretation of CBC data. Current Interpretive Data was last revised on 2017. Testing performed by: [address] [address] Basophil pct 0.8 % [facility] Comment: Interpretive Data Percent cell count reference ranges are not reported, since discordance with absolute values may lead to misinterpretation of CBC data. Current Interpretive Data was last revised on 2017. Testing performed by: [address] [address] Blood 09/29/2024 10:2 8 AM CDT 09/29/2024 11:40 AM CDT Gaye Us NP LAB BLOOD ORDERABLES Final Resul t Performing Organization Address City/[facility] [[email or web address]] Co de Phone Number [address] [place] [address] * Thyroid Function Stephenson (09/29/2024 10:28 AM CDT) Pathologist [facility] TSH 1.26 0.30 - 4.20 mcIUnit/mL Comment:Testing performed by : [address] [address] Blood 09/29/2024 10:2 8 AM CDT 09/29/2024 12:46 PM CDT Gaye Us NP LAB BLOOD ORDERABLES Final Resul t Performing Organization Address City/[facility]/ZIP Co de Phone Number [address] [place] [address] * (ABNORMAL) CBC with auto differential (09/29/2024 10:28 AM CDT) WBC 7.41 3.80 - 9.90 K/cumm Comment:Testing performed by : [address] [address] Hgb 12.5 11.9 - 15.5 g/dL SHILPI MOSLEY Comment:Testing performed by : [address] [address] Hct 38.8 35.6 - 45.5 % SH[facility]PI Comment:Testing performed by : [address], [address] Plt 285 150 - 400 K/cumm SHILPI Comment:Testing performed by : [address], [address] MPV 12.1 9.1 - 12.3 fL [facility]PI Comment:Testing performed by : [address], [address] RBC 5.01 3.90 - 5.20 M/cumm [facility] Comment:Testing performed by : [address], [address] MCV 77.4(L) 81.3 - 96.4 fL [facility] Comment:Testing performed by : [address], [address] MCH 25.0(L) 27.1 - 33.3 pg [facility]PI Comment:Testing performed by : [address], [address] MCHC 32.2(L) 32.3 - 35.7 g/dL [facility] Comment:Testing performed by : [address], [address] RDW CV 13.7 11.1 - 14.9 % [facility] Comment:Testing performed by : [address], [address] RDW SD 38.3 35.7 - 48.1 fL [facility] Comment:Testing performed by : [address], [address] NRBC abs 0.00 0.00 - 0.01 K/cumm [facility] Comment:Testing performed by : [address], [address] Blood 09/29/2024 10:2 8 AM CDT 09/29/2024 11:40 AM CDT us Gaye Us NP LAB BLOOD ORDERABLES Final Resul t [facility] [place] [address] * Vitamin D 25 hydroxy (09/29/2024 10:28 AM CDT) [facility] Vitamin D 25-OH 37.0 30.0 - 80.0 ng/mL Blood 09/29/2024 10:2 8 AM CDT 09/29/2024 2:18 PM CDT Gaye Us NP LAB BLOOD ORDERABLES Final Resul t Performing Organization Address City/[facility] [[email or web address]] Co de Phone Number [place] [address] * (ABNORMAL) Hemoglobin A1c (09/29/2024 10:28 AM CDT) [facility] Hgb A1C 5.8(H) 4.0 - 5.6 % Comment:Testing performed by : [address] [address] Estimated Average Glucose 120 mg/dL DALLASJEANETTE Comment: The ADA recommends reporting an estimated Average Glucose (eAG) with all Hemoglobin A1c results using the equation derived from a study of 507 normal and diabetic adults. Minority populations were underrepresented and children were not included. (Diabetes Care 31:2701-7888, 2008). The eAG is not equivalent to a fasting glucose. Testing performed by: [address] [address] Blood 09/29/2024 10:2 8 AM CDT 09/29/2024 11:40 AM CDT us Gaye Us NP LAB BLOOD ORDERABLES Final Resul t [place] [address] [place] [address] * Vitamin B12 (09/29/2024 10:28 AM CDT) [facility] Vitamin B12 616 230 - 1,250 pg/mL Comment:Testing performed by : [address] [address] Blood 09/29/2024 10:2 8 AM CDT 09/29/2024 12:46 PM CDT us Gaye Us NP LAB BLOOD ORDERABLES Final Resul t [facility] [address] [facility] Department [place] [address] * (ABNORMAL) Lipid panel (09/29/2024 10:28 AM [...] last revised on 2017. Testing performed by: [address] [address] Triglycerides 170(H) <=149 mg/dL SHILPI Comment: Interpretive [...] last revised on 2017. Testing performed by: [address] [address] HDL 42 >=40 mg/dL SH[facility] Comment: Interpretive [...] last revised on 2017. Testing performed by: [address] [address] LDL, calculated 138(H) <=129 mg/dL SHILPI MOSLEY [...] last revised on 2023. Testing performed by: [address] [address] Non-HDL Cholesterol 169 mg/dL SHILPI MOSLEY Comment: [...] last revised on 2017. Testing performed by: [address] [address] Chol/HDL ratio 5 SHILPI Comment:Testing performed by : [address] [address] Blood 09/29/2024 10:2 8 AM CDT 09/29/2024 12:46 PM CDT Narrative SHILPI - 09/29/2024 1:18 PM CDT Has the patient been fasting for 8 hours or more?->Yes us Gaye Us CONE FORMER LAB BLOOD ORDERABLES Final Resul t [facility] [address] [facility] Department [place] [address] * (ABNORMAL) Comprehensive metabolic panel (09/29/2024 10:28 AM CDT) Sodium 141 135 - 145 mmol/L Comment:Testing performed by : [address] [address] Potassium, pl 3.7 3.3 - 4.9 mmol/L SHILPI Comment:Testing performed by : [address] [address] Chloride 104 97 - 110 mmol/L SH[facility] Comment:Testing performed by : [address] [address] CO2 24 22 - 32 mmol/L [facility] Comment:Testing performed by : [address] [address] Anion gap 13 2 - 15 mmol/L [facility] Comment:Testing performed by : [address] [address] BUN 8 6 - 25 mg/dL [facility] Comment:Testing performed by : [address] [address] Creatinine 0.60 0.60 - 1.10 mg/dL [facility] Comment:Testing performed by : [address] [address] Glucose 117 70 - 199 mg/dL SHILPI [...] was last revised 2022. Testing performed by: [address] [address] Calcium 10.0 8.5 - 10.3 mg/dL [facility] Comment:Testing performed by : [address] [address] Bilirubin, total 0.5 0.1 - 1.2 mg/dL [facility] Comment:Testing performed by : [address] [address] Protein, pl 7.8 6.5 - 8.5 g/dL [facility] Comment:Testing performed by : [address] [address] Albumin 4.2 3.5 - 5.0 g/dL [facility] Comment:Testing performed by : [address] [address] Alk phos 87 40 - 130 Units/L [facility] Comment:Testing performed by : [address] [address] ALT 85(H) 7 - 45 Units/L [facility] Comment:Testing performed by : [address] [address] AST 60(H) 10 - 45 Units/L [facility] Comment:Testing performed by : [address] [address] Blood 09/29/2024 10:2 8 AM CDT 09/29/2024 12:46 PM CDT Narrative SHILPI - 09/29/2024 1:18 PM CDT Has the patient fasted?->Yes Gaye Us NP LAB BLOOD ORDERABLES Final Resul t [facility] [address] [facility] [place] [address] * POC Influenza A/B, COVID-19 antigen (07/12/2024 9:00 AM CDT) Pathologist [facility] Influenza A Ag, POC Negative Negative [facility] BANDERA 210 Influenza B Ag, POC Negative Negative [facility] THALIA 210 COVID-19 Ag POC Presumptive Negative Presumptive Negative, Invalid [facility] THALIA 210 Comment:Lot [id number] Nasal 07/12/2024 9:00 AM CDT Gaye Us NP POINT OF CARE TEST ORDERABLES Fi nal Result Performing Organization Address City/[facility]/ZIP Co de Phone Number [facility] BANDERA [address] * High Risk HPV DNA Detection with Genotyping (Molecular component) (12/06/2023 1:34 PM CDT) [facility] HPV HR 16 Not Detected Not Detected [facility] Comment:Testing performed by : [facility], [address] [place] [address] HPV HR 18 Not Detected Not Detected SHILPI Comment:Testing performed by : [facility], [address] [place] [place] [address] HPV HR Non 16/18 Not Detected Not [...] this test have been verified by the [facility] Molecular Infectious Disease laboratory. Correlate with separately reported cytology results, as applicable. Interpretive data last revised 22 Testing performed by: [facility], [address] [place]., [address] Endocervical 12/06/2023 1:34 PM CDT 12/07/2023 11:16 AM CDT [facility] 12/08/2023 1:17 AM CDT Clinical history and diagnosis->2019 wnl per pt ([place]) Number of vials->1 Testing type->Screening Last menstrual period (date if known)->11/22/23 Rianna Angulo CONE FORMER LAB BODY FLUIDS AND STOOLS O RDERABLES Final Result [facility] [address] [facility] [place] [address] [facility] * Hepatitis C antibody Blood (10/29/2023 [...] ISELA Edited Result - Final SHILPI MOSLEY [address] [facility] Department [place] [address] from Last 3 Months or Most Recently Relevant to Health Maintenance Insurance [employer] [facility] [place] Care Teams Television Camera Operator Relationship Specialty Start Date End Date Gaye Us NP [address] [place] [id number] PCP - General Family Medicine 10/04/23
--- OUTSIDE RECORDS SUMMARY | 2024-09-30 23:10 | XMS_ITS | Encounter Summary ---
Author Organization [facility] Healthcare Address [address] [place] [address] Care Team Providers Care Behavioral Therapist Name Role Phone Gaye Us NP Primary Care Provider [phone] Encounter Details Date Type Department Care Team (Late st Contact Info) Description 09/29/2024 10:[address] [facility] Building [address] [address] Paresthesia and pain of both upper extremities; [...] was last reviewed 2021. Testing performed by: [address] [address] Blood 09/29/2024 10:2 8 AM CDT 09/29/2024 12:46 PM CDT us Gaye Us NP LAB BLOOD ORDERABLES Final Resul t [facility] Department [place] [address] * Differential, auto (09/29/2024 10:28 AM CDT) Neutrophil abs 4.44 1.50 - 6.50 K/cumm Comment:Testing performed by : [address] [address] Imm gran abs 0.03 0.00 - 0.10 K/cumm SHILPI Comment:Testing performed by : [address] [address] Lymphocyte abs 2.21 0.80 - 3.30 K/cumm SH[facility] Comment:Testing performed by : [address] [address] Monocyte abs 0.48 0.20 - 0.80 K/cumm SH[facility] Comment:Testing performed by : [address] [address] Eosinophil abs 0.19 0.00 - 0.50 K/cumm SH[facility]PI Comment:Testing performed by : [address] [address] Basophil abs 0.06 0.00 - 0.10 K/cumm SH[facility]PI Comment:Testing performed by : [address] [place]., [address] Neutrophil pct 59.9 % CERNER Comment: Interpretive Data Percent cell count reference ranges are not reported, since discordance with absolute values may lead to misinterpretation of CBC data. Current Interpretive Data was last revised on 2017. Testing performed by: [address] [address] Imm gran pct 0.4 % CERNER Comment: Interpretive Data Percent cell count reference ranges are not reported, since discordance with absolute values may lead to misinterpretation of CBC data. Current Interpretive Data was last revised on 2017. Testing performed by: [address] [address] Lymphocyte pct 29.8 % [facility] Comment: Interpretive Data Percent cell count reference ranges are not reported, since discordance with absolute values may lead to misinterpretation of CBC data. Current Interpretive Data was last revised on 2017. Testing performed by: [address] [address] Monocyte pct 6.5 % CERNER Comment: Interpretive Data Percent cell count reference ranges are not reported, since discordance with absolute values may lead to misinterpretation of CBC data. Current Interpretive Data was last revised on 2017. Testing performed by: [address] [address] Eosinophil pct 2.6 % CERNER Comment: Interpretive Data Percent cell count reference ranges are not reported, since discordance with absolute values may lead to misinterpretation of CBC data. Current Interpretive Data was last revised on 2017. Testing performed by: [address] [address] Basophil pct 0.8 % CERNER Comment: Interpretive Data Percent cell count reference ranges are not reported, since discordance with absolute values may lead to misinterpretation of CBC data. Current Interpretive Data was last revised on 2017. Testing performed by: [address] [address] Blood 09/29/2024 10:2 8 AM CDT 09/29/2024 11:40 AM CDT Gaye Us NP LAB BLOOD ORDERABLES Final Resul t Performing Organization Address City/[facility] Co de Phone Number [place] [place] [address] * (ABNORMAL) Hemoglobin A1c (09/29/2024 10:28 AM CDT) Hgb A1C 5.8(H) 4.0 - 5.6 % Comment:Testing performed by : [facility], [address] [place] [address]., [address] Estimated Average Glucose 120 mg/dL [facility] Comment: The ADA recommends reporting an estimated Average Glucose (eAG) with all Hemoglobin A1c results using the equation derived from a study of 507 normal and diabetic adults. Minority populations were underrepresented and children were not included. (Diabetes Care 31:4513-4997, 2008). The eAG is not equivalent to a fasting glucose. Testing performed by: [address] [address] Blood 09/29/2024 10:2 8 AM CDT 09/29/2024 11:40 AM CDT Gaye Us NP LAB BLOOD ORDERABLES Final Resul t Performing Organization Address [facility] Co de Phone Number [place] [place] [address] * Vitamin D 25 hydroxy (09/29/2024 10:28 AM CDT) Pathologist [facility] Vitamin D 25-OH 37.0 30.0 - 80.0 ng/mL Blood 09/29/2024 10:2 8 AM CDT 09/29/2024 2:18 PM CDT Gaye Us NP LAB BLOOD ORDERABLES Final Resul t Performing Organization Address City/[facility] Co de Phone Number [place] [phone] [facility] [place] [address] * Thyroid Function Walker (09/29/2024 10:28 AM CDT) TSH 1.26 0.30 - 4.20 mcIUnit/mL Comment:Testing performed by : [address] [address] Blood 09/29/2024 10:2 8 AM CDT 09/29/2024 12:46 PM CDT us Gaye Us NP LAB BLOOD ORDERABLES Final Resul t [facility] [address] [facility] Department [place] [address] * (ABNORMAL) Lipid panel (09/29/2024 [...] last revised on 2017. Testing performed by: [address] [address] Triglycerides 170(H) <=149 mg/dL SH[facility]PI Comment: Interpretive [...] last revised on 2017. Testing performed by: [address] [address] HDL 42 >=40 mg/dL [facility] Comment: Interpretive [...] last revised on 2017. Testing performed by: [address] [address] LDL, calculated 138(H) <=129 mg/dL [facility] Comment: [...] last revised on 2023. Testing performed by: [address] [address] Non-HDL Cholesterol 169 mg/dL [facility] Comment: Interpretive [...] last revised on 2017. Testing performed by: [address] [address] Chol/HDL ratio 5 [facility] Comment:Testing performed by : [address] [address] Blood 09/29/2024 10:2 8 AM CDT 09/29/2024 12:46 PM CDT Narrative [facility] - 09/29/2024 1:18 PM CDT Has the patient been fasting for 8 hours or more?->Yes us Gaye sU NP LAB BLOOD ORDERABLES Final Resul t [facility] [address] [facility] Department [place] [address] * (ABNORMAL) Comprehensive metabolic panel (09/29/2024 10:28 AM CDT) Sodium 141 135 - 145 mmol/L Comment:Testing performed by : [address] [address] Potassium, pl 3.7 3.3 - 4.9 mmol/L [facility] Comment:Testing performed by : [address] [address] Chloride 104 97 - 110 mmol/L [facility] Comment:Testing performed by : [address] [address] CO2 24 22 - 32 mmol/L [facility] Comment:Testing performed by : [address] [address] Anion gap 13 2 - 15 mmol/L [facility] Comment:Testing performed by : [address] [address] BUN 8 6 - 25 mg/dL [facility] Comment:Testing performed by : [address] [address] Creatinine 0.60 0.60 - 1.10 mg/dL [facility] Comment:Testing performed by : [address] [address] Glucose 117 70 - 199 mg/dL SHILPI [...] was last revised 2022. Testing performed by: [address] [address] Calcium 10.0 8.5 - 10.3 mg/dL [facility] Comment:Testing performed by : [address] [address] Bilirubin, total 0.5 0.1 - 1.2 mg/dL [facility] Comment:Testing performed by : [address] [address] Protein, pl 7.8 6.5 - 8.5 g/dL [facility] Comment:Testing performed by : [address] [address] Albumin 4.2 3.5 - 5.0 g/dL [facility] Comment:Testing performed by : [address] [address] Alk phos 87 40 - 130 Units/L [facility] Comment:Testing performed by : [address] [address] ALT 85(H) 7 - 45 Units/L [facility] Comment:Testing performed by : [address] [address] AST 60(H) 10 - 45 Units/L [facility] Comment:Testing performed by : [address] [address] Blood 09/29/2024 10:2 8 AM CDT 09/29/2024 12:46 PM CDT Narrative [facility] [place] - 09/29/2024 1:18 PM CDT Has the patient fasted?->Yes us Gaye Us COMMERCIAL RELATIONSHIP MANAGER LAB BLOOD ORDERABLES Final Resul t [facility] [address] [facility] Department [place] [address] * (ABNORMAL) CBC with auto differential (09/29/2024 10:28 AM CDT) WBC 7.41 3.80 - 9.90 K/cumm Comment:Testing performed by : [address] [address] Hgb 12.5 11.9 - 15.5 g/dL [facility]PI Comment:Testing performed by : [address] [address] Hct 38.8 35.6 - 45.5 % [facility] Comment:Testing performed by : [address] [address] Plt 285 150 - 400 K/cumm [facility] Comment:Testing performed by : [address] [address] MPV 12.1 9.1 - 12.3 fL [facility] Comment:Testing performed by : [address] [address] RBC 5.01 3.90 - 5.20 M/cumm SH[facility] Comment:Testing performed by : [address] [address] MCV 77.4(L) 81.3 - 96.4 fL [facility] Comment:Testing performed by : [address] [address] MCH 25.0(L) 27.1 - 33.3 pg [facility]PI Comment:Testing performed by : [address] [address] MCHC 32.2(L) 32.3 - 35.7 g/dL [facility] [place] Comment:Testing performed by : [address], [address] RDW CV 13.7 11.1 - 14.9 % [facility] [place] Comment:Testing performed by : [address] [address] RDW SD 38.3 35.7 - 48.1 fL [facility] [place] Comment:Testing performed by : [address] [address] NRBC abs 0.00 0.00 - 0.01 K/cumm [facility] [place] Comment:Testing performed by : [address] [address] Blood 09/29/2024 10:2 8 AM CDT 09/29/2024 11:40 AM CDT us Gaye Us NP LAB BLOOD ORDERABLES Final Resul t Performing Organization Address City/[facility] Co de Phone Number SHIL[facility] [address] [place] [address] * Vitamin B12 (09/29/2024 10:28 AM CDT) [facility] Vitamin B12 616 230 - 1,250 pg/mL Comment:Testing performed by : [address], [address] Blood 09/29/2024 10:2 8 AM CDT 09/29/2024 12:46 PM CDT us Gaye Us NP LAB BLOOD ORDERABLES Final Resul t [place] [place] [address] documented in this encounter Visit Diagnoses Diagnosis Paresthesia and pain of both upper extremities Chronic fatigue Other malaise and fatigue Low mean corpuscular volume (MCV) Prediabetes Other abnormal glucose Screening, lipid Morbid obesity with BMI of 45.0-49.9, adult (HCC) Vitamin D deficiency documented in this encounter Care Teams Behavioral Therapist Relationship Specialty Start Date End Date Gaye Us NP [address] [place] [address] PCP - General Family Medicine 10/04/23 documented as of this encounter
--- OUTSIDE RECORDS SUMMARY | 2024-09-30 23:10 | XMS_ITS | Encounter Summary ---
Author Organization [facility] Healthcare Address [address] [place] [address] Care Team Providers Care Grey Goods Marker Name Role Phone Gaye Us NP Primary Care Provider [phone] Reason for Referral * Diagnostic Imaging (Routine) - Authorized Specialty Diagnoses / Procedures Referred By Contac t Referred To Contact Diagnoses Abnormal menses Procedures US Pelvis W Endovaginal Jarrett Harris MD [address] [place] [address] Phone: tel: fax: [facility] Referral ID Status Reason Start Date Expiration Date V isits Requested Visits Authorized [id number] Authorized 09/29/2024 10/29/2025 1 1 Encounter Details Date Type Department Care Team (Late st Contact Info) Description 09/29/2024 Orders Only [facility] Obstetrical Gynecology [address] [place] [phone] Jarrett Harris MD [address] [place] [address] Abnormal menses (Primary Dx) Social History [...] tract documented in this encounter Care Teams Grey Goods Marker Relationship Specialty Start Date End Date Gaye Us NP [address] [place] [address] PCP - General Family Medicine 10/04/23 documented as of this encounter
--- OUTSIDE RECORDS SUMMARY | 2024-09-30 23:10 | XMS_ITS | Clinical Summary ---
Author Organization [facility] Address [address] [facility] [address] Care Team Providers Care Maintenance Truck Driver Name Role Phone Gaye Us MICHELLE-FUR DRUMMER Primary Care Provider [phone] Source Comments [facility],non-owned Affiliates and Associated Physician Practices is amultiple site organization consisting of ambulatory clinics and hospital sitesin [place], [place], [place] and [place]. This disclosure is being madepursuant to the Care Everywhere program and may not contain all information available regarding this patient. Last updated 18.[facility] [employer]ly Allergies Active Allergy Reactions Criticality Noted Date [...] age to complete this topic Care Teams Maintenance Truck Driver Relationship Specialty Start Date End Date Gaye Us APRN-LULÚ [address] [place] [phone] PCP - General Nurse Practitioner 12/14/23
--- OUTSIDE RECORDS SUMMARY | 2024-09-30 23:10 | XMS_ITS | Encounter Summary ---
Author Organization [facility] Healthcare Address [address] [place] [address] Care Team Providers Care Rail Specialist Name Role Phone Gaye Us NP Primary Care Provider [phone] Reason for Referral * Neurology (Routine) - Authorized Specialty Diagnoses / Procedures Referred By Contac t Referred To Contact Neurology Diagnoses Paresthesia and pain of both upper extremities Procedures EMG/NCV - Gaye Us NP [address] [place] [address] Phone: tel: [facility]: [facility] [address] [place] [address] Phone: tel: fax: Referral ID Status Reason Start Date Expiration Date V isits Requested Visits Authorized [id number] Authorized 08/31/2024 02/22/2025 1 1 * Consultation (Routine) - Closed Specialty Diagnoses / Procedures Referred By Contac t Referred To Contact Pulmonary Disease / Pulmonology Diagnoses HOLDEN on CPAP Gaye Us NP [address] [place] [address] Phone: tel: fax: [facility] Pulmonology [address] [address] Phone: tel: fax: Referral ID Status Reason Start Date Expiration Date V isits Requested Visits Authorized [id number] Closed Specialty Services Required 08/31/2024 09/30/2025 1 1 Question Answer Please select the performing region: [facility] [[id number]] Please select the performing department: [facility] [[id number]] # of visits: 1 Comments Consideration of a sleep study Reason for Visit * Reason Comments Shoulder Pain Wallace; causing numbnes s, tingling, loss of feeling in arm; More so in R arm; Encounter Details Date Type Department Care Team ([facility] Contact Info) Description 08/31/2024 2:30 PM CDT Office Visit [facility] Primary Care at [address] [phone] Gaye Us NP [address] [place] [address] Paresthesia and pain of both upper [...] with auto differential; Future - Thyroid Function [place]; Future HOLDEN on CPAP Assessment & Plan: [...] exercise per week Orders: - Thyroid Function [place]; Future Prediabetes Assessment & Plan: Uncontrolled, stability [...] and strong Brisk capillary refill noted Hand system specialist equal Skin: General: Skin is warm and [...] (around 11/09/2024) for Annual physical. Gaye Us ENGINE REPAIRER SERVICE BC documented in this encounter Miscellaneous Notes * Assessment & Plan Note - Gaye Us NP - 09/03/2024 11:14 AM CDTAssociated Problem(s): Paresthesia and pain of both upper extremities Uncontrolled Started on gabapentin Ordered EMG and nerve conduction studies of bilateral upper extremities * Assessment & Plan Note - aGye Us NP - 09/03/2024 11:10 AM CDTAssociated [...] - 1,250 pg/mL Comment:Testing performed by : [address] [address] Blood 09/29/2024 10:2 8 AM CDT 09/29/2024 12:46 PM CDT us Gaye Us HYGIENE TEACHER LAB BLOOD ORDERABLES Final Resul t [facility] [address] [facility] [place] [address] * (ABNORMAL) CBC with auto differential (09/29/2024 10:28 AM CDT) WBC 7.41 3.80 - 9.90 K/cumm Comment:Testing performed by : [address] [address] Hgb 12.5 11.9 - 15.5 g/dL [facility] [place] Comment:Testing performed by : [address] [address] Hct 38.8 35.6 - 45.5 % [facility] [place] Comment:Testing performed by : [address] [address] Plt 285 150 - 400 K/cumm [facility] [place] Comment:Testing performed by : [address] [address] MPV 12.1 9.1 - 12.3 fL [facility] [place] Comment:Testing performed by : [address] [address] RBC 5.01 3.90 - 5.20 M/cumm [facility] Comment:Testing performed by : [address] [address] MCV 77.4(L) 81.3 - 96.4 fL [facility] Comment:Testing performed by : [address] [address] MCH 25.0(L) 27.1 - 33.3 pg [facility] Comment:Testing performed by : [address] [address] MCHC 32.2(L) 32.3 - 35.7 g/dL [facility] Comment:Testing performed by : [address] [address] RDW CV 13.7 11.1 - 14.9 % [facility] Comment:Testing performed by : [address] [address] RDW SD 38.3 35.7 - 48.1 fL [facility] Comment:Testing performed by : [address] [address] NRBC abs 0.00 0.00 - 0.01 K/cumm [facility] Comment:Testing performed by : [address] [address] Blood 09/29/2024 10:2 8 AM CDT 09/29/2024 11:40 AM CDT us Gaye Us NP LAB BLOOD ORDERABLES Final Resul t [facility] [place] [address] * (ABNORMAL) Comprehensive metabolic panel (09/29/2024 10:28 AM CDT) Sodium 141 135 - 145 mmol/L Comment:Testing performed by : [address] [address] Potassium, pl 3.7 3.3 - 4.9 mmol/L [facility] Comment:Testing performed by : [address] [address] Chloride 104 97 - 110 mmol/L [facility] Comment:Testing performed by : [address] [address] CO2 24 22 - 32 mmol/L [facility] Comment:Testing performed by : [address] [address] Anion gap 13 2 - 15 mmol/L [facility] Comment:Testing performed by : [address] [address] BUN 8 6 - 25 mg/dL [facility] Comment:Testing performed by : [address], [place]., [address] Creatinine 0.60 0.60 - 1.10 mg/dL [facility] Comment:Testing performed by : [address] [address] Glucose 117 70 - 199 mg/dL [facility] Comment: Interpretive Data Fasting glucose >/= [...] last revised 2022. Testing performed by: [address] [address] Calcium 10.0 8.5 - 10.3 mg/dL [facility] Comment:Testing performed by : [address] [address] Bilirubin, total 0.5 0.1 - 1.2 mg/dL [facility] Comment:Testing performed by : [address] [address] Protein, pl 7.8 6.5 - 8.5 g/dL [facility] Comment:Testing performed by : [address] [address] Albumin 4.2 3.5 - 5.0 g/dL [facility] Comment:Testing performed by : [address] [address] Alk phos 87 40 - 130 Units/L [facility] Comment:Testing performed by : [address] [address] ALT 85(H) 7 - 45 Units/L [facility] Comment:Testing performed by : [address], [address] AST 60(H) 10 - 45 Units/L [facility] Comment:Testing performed by : [address] [address] Blood 09/29/2024 10:2 8 AM CDT 09/29/2024 12:46 PM CDT Narrative [facility] - 09/29/2024 1:18 PM CDT Has the patient fasted?->Yes us Gaye Us NP LAB BLOOD ORDERABLES Final Resul t [facility] [address] [facility] Department of Laboratories [place], [place] [id number] * (ABNORMAL) Lipid panel (09/29/2024 10:28 AM [...] revised on 2017. Testing performed by: [address] [address] Triglycerides 170(H) <=149 mg/dL [facility] Comment: Interpretive [...] revised on 2017. Testing performed by: [address] [address] HDL 42 >=40 mg/dL [facility] Comment: Interpretive [...] revised on 2017. Testing performed by: [address] [address] LDL, calculated 138(H) <=129 mg/dL [facility] Comment: [...] revised on 2023. Testing performed by: [address] [address] Non-HDL Cholesterol 169 mg/dL [facility] Comment: Interpretive [...] revised on 2017. Testing performed by: [address] [address] Chol/HDL ratio 5 [facility] Comment:Testing performed by : [address] [address] Blood 09/29/2024 10:2 8 AM CDT 09/29/2024 12:46 PM CDT Narrative [facility] - 09/29/2024 1:18 PM CDT Has the patient been fasting for 8 hours or more?->Yes us Gaye Us NP LAB BLOOD ORDERABLES Final Resul t [facility] [address] [facility] [place] [address] * Thyroid Function [place] (09/29/2024 10:28 AM CDT) [facility] TSH 1.26 0.30 - 4.20 mcIUnit/mL Comment:Testing performed by : [address] [address] Blood 09/29/2024 10:2 8 AM CDT 09/29/2024 12:46 PM CDT Gaye Us HYGIENE TEACHER LAB BLOOD ORDERABLES Final Resul t Performing Organization Address City/[facility] Co de Phone Number [address] [place] [address] * Vitamin D 25 hydroxy (09/29/2024 10:28 AM CDT) [facility] Vitamin D 25-OH 37.0 30.0 - 80.0 ng/mL Blood 09/29/2024 10:2 8 AM CDT 09/29/2024 2:18 PM CDT Gaye Us HYGIENE TEACHER LAB BLOOD ORDERABLES Final Resul t Performing Organization Address City/[facility] Co de Phone Number [address] [place] [address] * (ABNORMAL) Hemoglobin A1c (09/29/2024 10:28 AM CDT) [facility] Hgb A1C 5.8(H) 4.0 - 5.6 % Comment:Testing performed by : [address] [address] Estimated Average Glucose 120 mg/dL [facility] Comment: The ADA recommends reporting an estimated Average Glucose (eAG) with all Hemoglobin A1c results using the equation derived from a study of 507 normal and diabetic adults. Minority populations were underrepresented and children were not included. (Diabetes Care 31:2918-2223, 2008). The eAG is not equivalent to a fasting glucose. Testing performed by: [address] [address] Blood 09/29/2024 10:2 8 AM CDT 09/29/2024 11:40 AM CDT us Gaye Us NP LAB BLOOD ORDERABLES Final Resul t [facility] [address] [facility] Department [place] [address] documented in this encounter Visit Diagnoses Diagnosis [...] deficiency documented in this encounter Care Teams Rail Specialist Relationship Specialty Start Date End Date Gaye Us NP [address] [place] [address] PCP - General Family Medicine 10/04/23 documented as of this encounter
--- OUTSIDE RECORDS SUMMARY | 2024-09-30 23:10 | XMS_ITS | Encounter Summary ---
Author Organization [facility] Healthcare Address [address] [place] [address] Care Team Providers Care Rotor Balancer Name Role Phone Gaye Us NP Primary Care Provider [phone] Encounter Details Date Type Department Care Team (Late st Contact Info) Description 09/30/2024 Results Follow-Up [facility] Obstetrical Gynecology [address] [phone] Nette Wade MD [address] [address] DHEA-sulfate, Follicle stimulating hormone, Prolactin, [...] on filedocumented in this encounter Care Teams Rotor Balancer Relationship Specialty Start Date End Date Gaye Us NP [address] [place] [id number] PCP - General Family Medicine 10/04/23 documented as of this encounter
--- OUTSIDE RECORDS SUMMARY | 2024-09-30 23:10 | XMS_ITS | Encounter Summary ---
Author Organization [facility] Healthcare Address [address] [place] [address] Care Team Providers Care Luggage Liner Name Role Phone Gaye Us FORESTRY PILOT Primary Care Provider [phone] Reason for Visit * Reason Onset Date Comments Medical Question/Miscellaneous 09/29/2024 Encounter Details Date Type Department Care Team ([facility] Contact Info) Description 09/29/2024 Telephone [facility] Medical Group Primary Care at [address] [address] Gaye Us NP [facility] [address] [address] Medical Question/Miscellaneous Social History Tobacco [...] to request that Labs be updated to [facility] since she iscurrently pulling in to get labs for her Enhanced Environmental Operator. Does message need to be routed? No Reason for Warm Transfer: Referral/Order Issue: Patient or Facility staff (Facility staff=doctor's office, lab, or imaging center) is calling with request for urgent order or urgent referral issue (e.g. patient is at facility and there is an issue with order/referral missing) Practice Accepted the Warm Transfer? No Additional Comments If No above and practice asked CAP JEWEL PLATE ASSEMBLER to relay information back to caller. documented in this encounter Plan of Treatment Not on file documented as of this encounter Visit Diagnoses Not on filedocumented in this encounter Care Teams Luggage Liner Relationship Specialty Start Date End Date Gaye Us NP [address] [place] [address] PCP - General Family Medicine 10/04/23 documented as of this encounter
--- OUTSIDE RECORDS SUMMARY | 2024-09-30 23:11 | XMS_ITS | Referral Summary ---
Author Organization [facility] Address [address] [facility] [place] [address] Care Team Providers Care Computer Processing Scheduler Name Role Phone Gaye Us NP Primary Care Provider [phone] Encounters Date Type Department Care Team Description 09/30/2024 Results Follow-Up [facility] Obstetrical Gynecology [address] [place] [address] [address] [place] [address] Nette Wade MD DHEA-sulfate, Follicle stimulating hormone, Prolactin, Total testosterone 09/29/2024 Orders Only [facility] Obstetrical Gynecology [address] [place] [address] [address] [place] [address] Jarrett Harris MD Abnormal menses (Primary Dx) 09/29/2024 10:25 AM CDT Lab [facility] [address] [place] [address] Abnormal menses 09/29/2024 10:10 AM CDT Lab [facility] [address] [place] [address] Paresthesia and pain of both upper extremities; Chronic fatigue; Low mean corpuscular volume (MCV); Prediabetes; Screening, lipid; Morbid obesity with BMI of 45.0-49.9, adult (HCC); Vitamin D deficiency 09/29/2024 Telephone [facility] Primary Care at [address] [place] [address] Gaye Us NP Medical Question/Miscellaneo us 09/28/2024 Telephone [facility] Obstetrical Gynecology [address] [place] [address] [address] [place] [address] Jarrett Harris MD 09/28/2024 Telephone [facility] Pulmonary [address] [place] [address] Maikel Paniagua MD Orders Only 09/28/2024 11:00 AM CDT Office Visit [facility] Pulmonary [address] [address] Maikel Paniagua MD HOLDEN on CPAP 09/14/2024 8:30 AM CDT Office Visit [facility] Primary Care at [address] [place] [address] Gaye Us NP Hypertension, essential (Primary Dx); Chest pain, unspecified type; Gastroesophageal reflux disease, unspecified whether esophagitis present; Morbid obesity with BMI of 45.0-49.9, adult (HCC) 09/12/2024 Telephone [facility] Primary Care at [address] [place] [address] Gaye Us NP 08/31/2024 2:30 PM CDT Office Visit [facility] Primary Care at [address] [place] [address] Gaye Us NP Paresthesia and pain of both upper extremities (Primary Dx); Chronic pain of both shoulders; Chronic fatigue; HOLDEN on CPAP; Morbid obesity with BMI of 45.0-49.9, adult (HCC); Prediabetes; Vitamin D deficiency; Low mean corpuscular volume (MCV); Screening, lipid 07/24/2024 Telephone [facility] Primary Care at [address] [place] [phone] Gaye Us NP 07/12/2024 Telephone [facility] Primary Care at [address] [address] Gaye Us NP 07/12/2024 8:45 AM CDT Office Visit [facility] Primary Care at [address] [address] Gaye Us NP Acute bronchitis, unspecified organism (Primary Dx); Acute non-recurrent sinusitis, unspecified location; Morbid obesity with BMI of 45.0-49.9, adult (HCC); Prediabetes; Vitamin D deficiency; Low mean corpuscular volume (MCV); Screening for thyroid disorder; Screening, anemia, deficiency, iron; Screening, lipid 07/11/2024 Nurse Triage [facility] Primary Care at [address] [phone] Gaye Us NP from Last 3 Months [...] nerve conduction studies of bilateral upper extremities HOLEDN on CPAP 08/31/2024 Assessment & Plan (09/28/2024 [...] to dermatology last visit, has appointment at [facility] in November Will monitor for stability Assessment & Plan (11/04/2023 1:25 PM CDT): Chronic, stable, not on medication Referred to dermatology last visit, has appointment at [facility] in November Will monitor for stability [...] last visit to gynecology, has appointment at [facility] Obstetrics and Gynecology in November Assessment [...] 23.3 ng/mL Comment:Testing performed by : [facility], [address] [place] [address]., [address] Blood 09/29/2024 10:3 5 AM CDT 09/29/2024 3:04 PM CDT Rianna Angulo SENIOR SALESFORCE DEVELOPER LAB BLOOD ORDERABLES Final R esult Performing Organization Address City/[facility]/ZIP Co de Phone Number [place] [place] [address] * DHEA-sulfate (09/29/2024 10:35 AM CDT) DHEA-S 134.0 60.9 - 337.0 mcg/dL Comment:Testing performed by : [facility], [address] [place] [address], [address] Blood 09/29/2024 10:3 5 AM CDT 09/29/2024 3:03 PM CDT Rianna Angulo SENIOR SALESFORCE DEVELOPER LAB BLOOD ORDERABLES Final R esult [address] [place] [address] * Total testosterone (09/29/2024 10:35 AM CDT) Testosterone 17.70 8.40 - 48.10 ng/dL Blood 09/29/2024 10:3 5 AM CDT 09/29/2024 2:18 PM CDT Rianna Stone Kev SENIOR SALESFORCE DEVELOPER LAB BLOOD ORDERABLES Final R esult Performing Organization Address City/[facility]/ZIP Co de Phone Number SHILPI [address] [address] * Follicle stimulating hormone (09/29/2024 10:35 AM CDT) FSH 4.3 1.5 - 12.4 IUnits/L Blood 09/29/2024 10:3 5 AM CDT 09/29/2024 2:18 PM CDT Rianna Angulo LAB BLOOD ORDERABLES Final R esult Performing Organization Address [facility] Co de Phone Number [place] [address] * eGFR (09/29/2024 10:28 AM CDT) Pathologist [facility] eGFR >90 >=60 mL/min/1. 73 m2 Comment: [...] was last reviewed 2021. Testing performed by: [facility], [address] [place] [address]., [address] Blood 09/29/2024 10:2 8 AM CDT 09/29/2024 12:46 PM CDT us Gaye Us NP LAB BLOOD ORDERABLES Final Resul t SHILPI [address] [facility] Department [place] [address] * Differential, auto (09/29/2024 10:28 AM CDT) Neutrophil abs 4.44 1.50 - 6.50 K/cumm Comment:Testing performed by : [address] [address] Imm gran abs 0.03 0.00 - 0.10 K/cumm SHILPI Comment:Testing performed by : [address] [address] Lymphocyte abs 2.21 0.80 - 3.30 K/cumm SHILPI Comment:Testing performed by : [address] [address] Monocyte abs 0.48 0.20 - 0.80 K/cumm SHILPI Comment:Testing performed by : [address] [address] Eosinophil abs 0.19 0.00 - 0.50 K/cumm SHILPI Comment:Testing performed by : [address] [address] Basophil abs 0.06 0.00 - 0.10 K/cumm SHILPI Comment:Testing performed by : [address] [address] Neutrophil pct 59.9 % [facility] Comment: Interpretive Data Percent cell count reference ranges are not reported, since discordance with absolute values may lead to misinterpretation of CBC data. Current Interpretive Data was last revised on 2017. Testing performed by: [address] [address] Imm gran pct 0.4 % SHILPI Comment: Interpretive Data Percent cell count reference ranges are not reported, since discordance with absolute values may lead to misinterpretation of CBC data. Current Interpretive Data was last revised on 2017. Testing performed by: [address] [address] Lymphocyte pct 29.8 % [facility] Comment: Interpretive Data Percent cell count reference ranges are not reported, since discordance with absolute values may lead to misinterpretation of CBC data. Current Interpretive Data was last revised on 2017. Testing performed by: [address] [address] Monocyte pct 6.5 % [facility] Comment: Interpretive Data Percent cell count reference ranges are not reported, since discordance with absolute values may lead to misinterpretation of CBC data. Current Interpretive Data was last revised on 2017. Testing performed by: [address] [address] Eosinophil pct 2.6 % [facility] Comment: Interpretive Data Percent cell count reference ranges are not reported, since discordance with absolute values may lead to misinterpretation of CBC data. Current Interpretive Data was last revised on 2017. Testing performed by: [address] [address] Basophil pct 0.8 % [facility] Comment: Interpretive Data Percent cell count reference ranges are not reported, since discordance with absolute values may lead to misinterpretation of CBC data. Current Interpretive Data was last revised on 2017. Testing performed by: [address] [address] Blood 09/29/2024 10:2 8 AM CDT 09/29/2024 11:40 AM CDT us Gaye Us NP LAB BLOOD ORDERABLES Final Resul t SH[facility] [address] [facility] Department [place] [address] * Thyroid Function [place] (09/29/2024 10:28 AM CDT) TSH 1.26 0.30 - 4.20 mcIUnit/mL Comment:Testing performed by : [address] [address] Blood 09/29/2024 10:2 8 AM CDT 09/29/2024 12:46 PM CDT us Gaye Us SENIOR SALESFORCE DEVELOPER LAB BLOOD ORDERABLES Final Resul t [facility] [address] [facility] Department [place] [address] * (ABNORMAL) CBC with auto differential (09/29/2024 10:28 AM CDT) WBC 7.41 3.80 - 9.90 K/cumm Comment:Testing performed by : [address] [address] Hgb 12.5 11.9 - 15.5 g/dL SHILPI Comment:Testing performed by : [address] [address] Hct 38.8 35.6 - 45.5 % SHILPI Comment:Testing performed by : [address] [address] Plt 285 150 - 400 K/cumm SHILPI Comment:Testing performed by : [address] [address] MPV 12.1 9.1 - 12.3 fL SHILPI Comment:Testing performed by : [address] [address] RBC 5.01 3.90 - 5.20 M/cumm SHILPI Comment:Testing performed by : [address] [address] MCV 77.4(L) 81.3 - 96.4 fL SHILPI Comment:Testing performed by : [address] [address] MCH 25.0(L) 27.1 - 33.3 pg SHILPI Comment:Testing performed by : [address] [address] MCHC 32.2(L) 32.3 - 35.7 g/dL SHILPI Comment:Testing performed by : [address] [address] RDW CV 13.7 11.1 - 14.9 % SHILPI [place] Comment:Testing performed by : [address] [address] RDW SD 38.3 35.7 - 48.1 fL [facility] [place] Comment:Testing performed by : [address] [address] NRBC abs 0.00 0.00 - 0.01 K/cumm SH[facility]PI [place] Comment:Testing performed by : [address] [address] Blood 09/29/2024 10:2 8 AM CDT 09/29/2024 11:40 AM CDT Gaye Us NP LAB BLOOD ORDERABLES Final Resul t Performing Organization Address City/[facility] Co de Phone Number [place] [place] [address] * Vitamin D 25 hydroxy (09/29/2024 10:28 AM CDT) Pathologist [facility] Vitamin D 25-OH 37.0 30.0 - 80.0 ng/mL Blood 09/29/2024 10:2 8 AM CDT 09/29/2024 2:18 PM CDT Gaye Us NP LAB BLOOD ORDERABLES Final Resul t Performing Organization Address City/[facility] Co de Phone Number [address] [address] * (ABNORMAL) Hemoglobin A1c (09/29/2024 10:28 AM CDT) Pathologist [facility] Hgb A1C 5.8(H) 4.0 - 5.6 % Comment:Testing performed by : [address] [address] Estimated Average Glucose 120 mg/dL SHILPI [place] Comment: The ADA recommends reporting an estimated Average Glucose (eAG) with all Hemoglobin A1c results using the equation derived from a study of 507 normal and diabetic adults. Minority populations were underrepresented and children were not included. (Diabetes Care 31:7635-6546, 2008). The eAG is not equivalent to a fasting glucose. Testing performed by: [address] [address] Blood 09/29/2024 10:2 8 AM CDT 09/29/2024 11:40 AM CDT Gaye sU NP LAB BLOOD ORDERABLES Final Resul t Performing Organization Address [facility] Co de Phone Number [address] [place] [address] * Vitamin B12 (09/29/2024 10:28 AM CDT) Vitamin B12 616 230 - 1,250 pg/mL Comment:Testing performed by : [address] [address] Blood 09/29/2024 10:2 8 AM CDT 09/29/2024 12:46 PM CDT Gaye Us NP LAB BLOOD ORDERABLES Final Resul t Performing Organization Address [facility] Co de Phone Number [address] [address] * (ABNORMAL) Lipid panel (09/29/2024 10:28 AM [...] last revised on 2017. Testing performed by: [address] [address] Triglycerides 170(H) <=149 mg/dL SHILPI Comment: Interpretive [...] last revised on 2017. Testing performed by: [address] [address] HDL 42 >=40 mg/dL SHILPI Comment: Interpretive [...] last revised on 2017. Testing performed by: [address] [address] LDL, calculated 138(H) <=129 mg/dL SHILPI Comment: [...] last revised on 2023. Testing performed by: [address] [address] Non-HDL Cholesterol 169 mg/dL SHILPI Comment: Interpretive [...] last revised on 2017. Testing performed by: [address] [address] Chol/HDL ratio 5 SIHLPI Comment:Testing performed by : [address] [address] Blood 09/29/2024 10:2 8 AM CDT 09/29/2024 12:46 PM CDT Narrative SHILPI - 09/29/2024 1:18 PM CDT Has the patient been fasting for 8 hours or more?->Yes us Gaye Us NP LAB BLOOD ORDERABLES Final Resul t SH[facility]PI [place] [address] [facility] Department [place] [address] * (ABNORMAL) Comprehensive metabolic panel (09/29/2024 10:28 AM CDT) [facility] Signature Sodium 141 135 - 145 mmol/L Comment:Testing performed by : [address] [address] Potassium, pl 3.7 3.3 - 4.9 mmol/L SHILPI Comment:Testing performed by : [address] [address] Chloride 104 97 - 110 mmol/L SHILPI Comment:Testing performed by : [address], [place]., [address] CO2 24 22 - 32 mmol/L SHILPI Comment:Testing performed by : [address], [place]., [address] Anion gap 13 2 - 15 mmol/L [facility] Comment:Testing performed by : [address] [address] BUN 8 6 - 25 mg/dL SHILPI Comment:Testing performed by : [address], [place]., [address] Creatinine 0.60 0.60 - 1.10 mg/dL SHILPI Comment:Testing performed by : [address] [address] Glucose 117 70 - 199 mg/dL [facility] Comment: Interpretive Data Fasting glucose >/= 126 [...] was last revised 2022. Testing performed by: [address] [address] Calcium 10.0 8.5 - 10.3 mg/dL SHILPI Comment:Testing performed by : [address] [address] Bilirubin, total 0.5 0.1 - 1.2 mg/dL SHILPI Comment:Testing performed by : [address] [address] Protein, pl 7.8 6.5 - 8.5 g/dL SHILPI Comment:Testing performed by : [facility], [address] [place] [address]., [address] Albumin 4.2 3.5 - 5.0 g/dL SHILPI Comment:Testing performed by : [facility], [address] [place] [address]., [address] Alk phos 87 40 - 130 Units/L SHILPI Comment:Testing performed by : [address] [address] ALT 85(H) 7 - 45 Units/L SHILPI Comment:Testing performed by : [address] [address] AST 60(H) 10 - 45 Units/L SHILPI Comment:Testing performed by : [facility], [address] [place] [address]., [address] Blood 09/29/2024 10:2 8 AM CDT 09/29/2024 12:46 PM CDT Narrative SHILPI - 09/29/2024 1:18 PM CDT Has the patient fasted?->Yes us Gaye Us SENIOR SALESFORCE DEVELOPER LAB BLOOD ORDERABLES Final Resul t [place] [id number] [facility] [place] [address] * POC Influenza A/B, COVID-19 antigen (07/12/2024 9:00 AM CDT) Influenza A Ag, POC Negative Negative [facility] [address] Influenza B Ag, POC Negative Negative [facility] COVID-19 Ag POC Presumptive Negative Presumptive Negative, Invalid [facility] Comment:Lot [id number] 26 Nasal 07/12/2024 9:00 AM CDT us Gaye Us SENIOR SALESFORCE DEVELOPER POINT OF CARE TEST ORDERABLES Fi nal Result [facility] [id number] [place] [address] * High Risk HPV DNA Detection with Genotyping (Molecular component) (12/06/2023 1:34 PM CDT) HPV HR 16 Not Detected Not Detected [facility] Comment:Testing performed by : [facility], [address] [facility], [address] HPV HR 18 Not Detected Not Detected SHILPI [place] Comment:Testing performed by : [facility], [address] [facility], [address] HPV HR Non 16/18 Not Detected Not [...] this test have been verified by the [facility] Molecular Infectious Disease laboratory. Correlate with separately reported cytology results, as applicable. Interpretive data last revised 22 Testing performed by: [facility], [address] [place] [address], [address] Endocervical 12/06/2023 1:34 PM CDT 12/07/2023 11:16 AM CDT Narrative SHILPI MOSLEY - 12/08/2023 1:17 AM CDT Clinical history and diagnosis->2019 wnl per pt (Alice) Number of vials->1 Testing type->Screening Last menstrual period (date if known)->11/22/23 Rianna Angulo NP LAB BODY FLUIDS AND STOOLS O RDERABLES Final Result SHILPI [place] [address] [facility] [place] [address] [facility] * Hepatitis C antibody Blood (10/29/2023 [...] ISELA Edited Result - Final SHILPI [address] [facility] [place] [address] from Last 3 Months or Most Recently Relevant to Health Maintenance Insurance [facility] Care Teams Computer Processing Scheduler Relationship Specialty Start Date End Date Gaye Us, SENIOR SALESFORCE DEVELOPER [address] [place] [address] PCP - General Family Medicine 10/04/23
--- NOTE | 2024-09-30 23:36 | ECG_ITS ---
Test Date: 2024-10-01 00:06:25 Measurements Intervals Sells Rate: 91 P: 28 PA: 151 QRS: 27 QRSD: 119 T: 25 QT: 369 QTc: 454 Interpretive Statements SINUS RHYTHM INCOMPLETE RIGHT BUNDLE BRANCH BLOCK BORDERLINE T WAVE ABNORMALITY- INFERIOR LEADS BASELINE ARTIFACT- I, III, AVL BORDERLINE ECG Compared to ECG 09/11/2024 01:47:27 NO SIGNIFICANT CHANGE Electronically Signed On 10-01-2024 07:19:01 CDT by Surinder Calhoun D.O.
--- NOTE | 2024-09-30 23:59 | ED.FEMALEGU ---
HPI - Female Genitourinary General Chief complaint: Urogenital-Female Stated complaint: vaginal bleeding, clots, dizzy, lightheaded Time Seen by Provider: 09/30/24 23:05 History of Present Illness HPI Narrative: 39-year-old female presents to the emergency department for abnormal uterine bleeding. Patient states she started her period 12 days ago and has not stopped which is abnormal for her. States her periods are normally 3 days in length. She notes that she has passed several quarter-size clots for the past couple of days. She has been changing her pad every couple of hours but did have an episode earlier today where she had to change her pad twice and 1 hour, however the bleeding has lightened up since. She states that she had some lower abdominal cramping which has since resolved. She had labs drawn yesterday that were ordered by her OBGYN and is scheduled to have an outpatient ultrasound later this month for further evaluation of abnormal uterine bleeding. She denies vaginal discharge or concern for STDs, dysuria or hematuria, urinary frequency urgency, fever, nausea or vomiting. Denies history of coagulopathies or bleeding dyscrasias. Related Data Allergies Allergy/AdvReac Type Severity Reaction Status Date / Time Penicillins Allergy Intermediate Rash Verified 10/01/24 02:06 sulfamethoxazole (From Allergy Intermediate Swelling Verified 10/01/24 02:06 Bactrim) of the Eye trimethoprim (From Bactrim) Allergy Intermediate Swelling Verified 10/01/24 02:06 of the Eye prednisone Allergy Mild Dyspnea / Verified 10/01/24 02:06 SOB Review of Systems Review of Systems: All systems reviewed & are unremarkable except as noted in HPI and below Exam Narrative: GENERAL: Well-appearing, well-nourished, and in no acute distress. HEAD: Normocephalic, atraumatic. EYES: EOMI. ENT: Nares clear, no rhinorrhea or epistaxis. Mucous membranes moist. NECK: Supple. CHEST: Clear to auscultation. No respiratory distress. HEART: Regular rate and rhythm. No murmur heard. Normal peripheral pulses. ABDOMEN: Soft, nontender, nondistended, normal active bowel sounds. No rebound, guarding or rigidity. No CVA tenderness EXTREMITIES: Normal range of motion. No edema. SKIN: Warm, dry, no rash. NEURO: No focal deficits. Alert and oriented x3 Course Vital Signs Vital signs: Vital Signs Temperature 97.4 F L 09/30/24 22:19 Pulse Rate 89 09/30/24 22:19 Respiratory Rate 18 09/30/24 22:19 Blood Pressure 144/71 H 09/30/24 22:19 Pulse Oximetry 100 09/30/24 22:19 Oxygen Delivery Room Air 09/30/24 22:19 Temperature 97.4 F L 09/30/24 22:19 Pulse Rate 79 10/01/24 02:06 Respiratory Rate 15 10/01/24 02:06 Blood Pressure 132/81 10/01/24 02:06 Pulse Oximetry 100 10/01/24 02:06 Oxygen Delivery Room Air 09/30/24 22:19 MDM - Female Genitourinary MDM Narrative Medical decision making narrative: 39-year-old female presents emergency department for abnormal uterine bleeding. Patient states she started her period 12 days ago and is still having vaginal bleeding. She has passed several quarter sized clots. She had lower abdominal pain/cramping which has since resolved. On arrival to the ED your vital signs are stable. She is afebrile nontoxic appearing. Abdomen is soft and nontender. Lab work without leukocytosis or anemia. Chemistries with chronic elevation in AST and ALT, no acute findings. UA with blood, trace leuk esterase, no pyuria or nitrites, no symptoms of UTI. is negative. EKG shows normal sinus rhythm with a rate of 91 ppm, normal [place] interval, normal QRS duration normal QTC, no acute ischemic changes, changes when compared to prior. Patient updated on results. She received IV fluids, Toradol and Tylenol with improvement. Vital signs remained stable. Her vaginal bleeding is reportedly improved. She is ambulatory in the ED with a steady gait. She was advised to follow-up with her OBGYN and given return precautions. She is agreeable with the plan verbalized understanding. Discharged in stable condition. Lab Data 10/01/24 00:18 10/01/24 00:18 Labs: Lab Results 10/01/24 10/01/24 Range/Units 00:18 00:19 WBC 8.6 (4.5-10.0) K/mm3 RBC 5.01 (4.2-5.4) M/mm3 Hgb 12.4 (12.0-15.0) g/dL Hct 39.8 (37.0-47.0) % MCV 79.4 L (80-100) fl MCH 24.8 L (26-34) pg MCHC 31.2 L (32-36) g/dl RDW 13.6 (11.5-14.5) % Plt Count 270 (150-375) k/mm3 MPV 11.0 H (7.4-10.4) fl Immature Gran % (Auto) 0.3 (0-0.5) % Neut % (Auto) 56.9 (45.5-73.1) % Lymph % (Auto) 33.4 (18.3-44.2) % [place] % (Auto) 6.9 (2.6-8.5) % Eos % (Auto) 1.9 (0-4.4) % Baso % (Auto) 0.6 (0.2-1.2) % Lymph # (Auto) 2.87 (0.9-3.2) K/mm3 [place] # (Auto) 0.6 (0.1-0.6) K/mm3 Eos # (Auto) 0.2 (0-0.3) K/mm3 Baso # (Auto) 0.1 (0.0-0.1) K/mm3 Abs Immat Gran (auto) 0.03 (0.00-0.031) K/mm3 Absolute Neuts (auto) 4.9 (1.3-6.7) K/mm3 Absolute Nucleated RBC 0.000 (0.0-0.012) K/mm3 Nucleated RBC % 0.0 (0.0-0.2) % PT 12.9 (11.1-14.7) Seconds INR 1.0 APTT 33.5 (22.3-36.8) Seconds Sodium 141 (137-145) mmol/L Potassium 3.7 (3.4-5.0) mmol/L Chloride 104 (98-107) mmol/L Carbon Dioxide 27 (22-30) mmol/L Anion Gap 10 (4-12) mmol/L BUN 11 (7-17) mg/dL Creatinine 0.73 (0.7-1.0) mg/dL Estim Creat Clear Calc 111 ml/min Estimated GFR > 60 (59 - ) Glucose 108 (65-110) mg/dL Calcium 9.7 (8.4-10.2) mg/dL Total Bilirubin 0.3 (0.2-1.3) mg/dL AST 60 H (14-36) U/L ALT 105 H (6-35) U/L Alkaline Phosphatase 87 (38-126) U/L Total Protein 8.1 (6.3-8.2) g/dL Albumin 4.5 (3.5-5.1) g/dL Urine Color [place] H (Yellow) Urine Appearance Cloudy H (Clear) Urine pH 6.5 (5.0-9.0) Ur Specific [place] 1.019 (1.001-1.035) Urine Protein 1+ H (Negative) mg/dL Urine Glucose (UA) Negative (Negative) mg/dL Urine Ketones Negative (Negative) mg/dL Ur Blood (Man) 3+ H (Negative) Urine Nitrate Negative (Negative) Urine Bilirubin Negative (Negative) Urine Urobilinogen 1.0 (<2.0) mg/dL Leukocyte Esterase Rfl Trace H (Negative) MINDY/UL Urine RBC >100 H (0-2) /hpf Urine WBC 0-5 (0-3) /hpf Ur Squamous Epith Cells None seen (Few) /hpf Urine Bacteria None seen /hpf Urine Casts 0-2 POC Urine HCG, Qual Negative (Negative) Discharge Plan Discharge Clinical Impression: Abnormal uterine bleeding Patient Disposition: Home Condition: Stable Instructions: Antibiotic Form, Abnormal (Dysfunctional) Uterine Bleeding (ED) Additional Instructions: Please follow-up with your OBGYN. Return to the emergency department if you develop lightheadedness or dizziness, you lose consciousness, you are saturating over 1 pad or tampon an hour, or other concerning symptoms. Patient Language: [place] Prescriptions: New naproxen 500 mg tablet 500 mg PO BID PRN (Reason: pain) Qty: 20 0RF No Action benzonatate 100 mg capsule 100 mg PO BID PRN (Reason: cough) Qty: 14 0RF cefdinir 300 mg capsule 300 mg PO Q12H 7 Days Qty: 14 0RF pantoprazole [Protonix] 40 mg tablet,delayed release (DR/EC) 40 mg PO HS Qty: 14 0RF nitrofurantoin monohyd/m-cryst [Macrobid] 100 mg capsule 100 mg PO Q12H 5 Days Qty: 10 0RF Rx Instructions: must administer with a meal/food Follow-up/Referrals: UNKNOWN,DOCTOR [Primary Care Provider] -
[2024-10-01 00:24] LABS: Basophils Absolute Auto 0.1 K/mm3 (0.0-0.1); Basophils Percent Auto 0.6 % (0.2-1.2); Eosinophils Absolute Auto 0.2 K/mm3 (0-0.3); Eosinophils Percent Auto 1.9 % (0-4.4); Hematocrit 39.8 % (37.0-47.0); Hemoglobin 12.4 g/dL (12.0-15.0); Immature Granulocyte Absolute 0.03 K/mm3 (0.00-0.031); Immature Granulocyte Percent A 0.3 % (0-0.5); Lymphocytes Absolute Auto 2.87 K/mm3 (0.9-3.2); Lymphocytes Percent Auto 33.4 % (18.3-44.2); Mean Corpuscular HGB Conc 31.2 g/dl (32-36); Mean Corpuscular Hemoglobin 24.8 pg (26-34); Mean Corpuscular Volume 79.4 fl (80-100); Monocytes Absolute Auto 0.6 K/mm3 (0.1-0.6); Monocytes Percent Auto 6.9 % (2.6-8.5); Neutrophils Absolute Auto 4.9 K/mm3 (1.3-6.7); Neutrophils Percent Auto 56.9 % (45.5-73.1); Platelet Count Result 270 k/mm3 (150-375); Red Blood Count 5.01 M/mm3 (4.2-5.4); Red Cell Distribution Width 13.6 % (11.5-14.5); White Blood Count 8.6 K/mm3 (4.5-10.0)
[2024-10-01 00:28] LABS: Bacteria Urine None Seen /hpf; Non Pathogenic Casts 0-2; RBC Urine >100 /hpf (0-2); Squamous Epithelial Cell Urine None Seen /hpf (Few); WBC Urine 0-5 /hpf (0-3)
[2024-10-01] MEDS: SODIUM CHLORIDE 0.9% IV 1,000 ML 999 ML IV CONT (00:28)
[2024-10-01] MEDS: ACETAMINOPHEN 500 MG TABLET 1000 MG PO (00:29)
[2024-10-01] MEDS: KETOROLAC 30 MG/ML VIAL (*BKC) IV PUSH (00:29)
[2024-10-01 00:34] LABS: Prothrombin Time 12.9 Seconds (11.1-14.7)
[2024-10-01 00:35] LABS: Alanine Aminotransferase 105 U/L (6-35); Albumin Level 4.5 g/dL (3.5-5.1); Alkaline Phosphatase 87 U/L (38-126); Anion Gap 10 mmol/L (4-12); Aspartate Amino Transferase 60 U/L (14-36); Bilirubin,Total 0.3 mg/dL (0.2-1.3); Blood Urea Nitrogen 11 mg/dL (7-17); Calcium 9.7 mg/dL (8.4-10.2); Carbon Dioxide 27 mmol/L (22-30); Chloride 104 mmol/L (98-107); Estimated CRCL calculation 111 ml/min; Estimated Glomerular Filt Rate > 60; Glucose 108 mg/dL (65-110); Partial Thromboplastin Time 33.5 Seconds (22.3-36.8); Potassium 3.7 mmol/L (3.4-5.0); Sodium 141 mmol/L (137-145); Total Protein 8.1 g/dL (6.3-8.2)
[2024-10-01 00:36] LABS: Add Urine Microscopic? YES; Appearance Urine Cloudy (Clear); Bilirubin Urine Negative (Negative); Blood Urine 3+ (Negative); Color Urine Orange (Yellow); Glucose Urine UA Negative (Negative); Ketones Urine Negative (Negative); Leukocyte Esterase Ur Trace LEU/UL (Negative); Nitrate Urine Negative (Negative); Protein Urine 1+ mg/dL (Negative); Specific Grav Ur 1.019 (1.001-1.035); pH Urine 6.5 (5.0-9.0)
[2024-10-01 00:51] VITALS: BP 139/84; PULSE 86; RESP 16; O2SAT 99
[2024-10-01 01:46] LABS: BEDSIDEPREGUCG Negative (Negative)
[2024-10-01 02:02] VITALS: BP 132/81; PULSE 79; RESP 15; O2SAT 100
[2024-10-01 02:06] VITALS: BP 132/81; PULSE 79; RESP 15; O2SAT 100
== END 2024-10-01 02:09 | disposition home or self-care (01) ==
PROVIDERS: Emergency Provider Physician Assistant
DX: N93.9 Abnormal uterine and vaginal bleeding, unspecified (principal); I45.10 Unspecified right bundle-branch block; R94.31 Abnormal electrocardiogram [ECG] [EKG]
CPT/HCPCS: 36415; 80053; 81001; 81025; 85025; 85610; 85730; 93005; 96361; 96374; 99284; A9270; J1885; J7030